=== PATIENT | female | born 1935 | race African-American/Black ===

== ENCOUNTER → 2018-02-05 12:36 | Outpatient (CLI) | payer MEDICARE, OTHER, SELFPAY ==
--- NOTE | 2018-02-05 | DI.US.S_ITS ---
PROCEDURE: US CAROTID DOPPLER BI INDICATIONS: DISORDER OF ARTERIES TECHNIQUE: Color and pulse Doppler interrogation was performed of both carotid systems, with image documentation and velocity measurements. COMPARISON: None. FINDINGS: Stenosis calculations are based on SRU (S[employer] in Ul[employer]) criteria. Right side: Brachial blood pressure: 157/82 mm Hg. Common carotid artery peak systolic velocity: 72 cm/sec. Internal carotid artery peak systolic velocity: 80 cm/sec. Internal carotid artery end diastolic velocity: 20 cm/sec. External carotid artery peak systolic velocity: 80 cm/sec. ICA/CCA peak systolic ratio: 1.11. Pike scale imaging description: Mild plaquing at the bifurcation Percent internal carotid artery stenosis: Less than 50%. Vertebral artery: Not visualized. Left side: Brachial blood pressure: 158/80 mm Hg. Common carotid artery peak systolic velocity: 75 cm/sec. Internal carotid artery peak systolic velocity: 80 cm/sec. Internal carotid artery end diastolic velocity: 20 cm/sec. External carotid artery peak systolic velocity: 57 cm/sec. ICA/CCA peak systolic ratio: 1.06. Pike scale imaging description: Calcified plaques at the bifurcation Percent internal carotid artery stenosis: Less than 50%. Vertebral artery: Flow direction is antegrade. IMPRESSION: Less than 50% internal carotid artery stenosis bilaterally. Dictated by: Osmar Hylton M.D. on 02/05/2018 at 16:02 Approved by: Osmar Hylton M.D. on 02/05/2018 at 16:09
== END ==
PROVIDERS: Family Provider Internal Medicine; PCP Internal Medicine; Visit Provider Internal Medicine Cardiovascular Disease
DX: I77.9 Disorder of arteries and arterioles, unspecified (principal)
CPT/HCPCS: 93880

== ENCOUNTER 2018-07-12 11:30 | Inpatient (IN) | payer MEDICARE, OTHER, SELFPAY ==
[2018-07-12] VITALS (13 sets, daily range): BP systolic 112–164; BP diastolic 59–97; PULSE 60–108; RESP 14–23; TEMP 36.9–38.2; O2SAT 97–100; BMI 25.6
--- NOTE | 2018-07-12 11:40 | DI.CT.S_ITS ---
PROCEDURE: CT HEAD/BRAIN WO CON INDICATIONS: confusion TECHNIQUE: Noncontrast 4.5 mm thick angled axial sections acquired from the foramen magnum to the vertex, with coronal and sagittal reformats. For radiation dose reduction, the following was used: automated exposure control, adjustment of mA and/or kV according to patient size. COMPARISON: None. FINDINGS: Image quality: Excellent. CSF spaces: Basal cisterns are patent. No extra-axial fluid collections. The ventricles are symmetric in size and shape. Brain: No intracranial bleeds or masses. There is cerebral volume loss for age, with resultant ventricular and sulcal prominence. There are periventricular and deep white matter chronic small vessel ischemic changes. There is intracranial internal carotid artery atherosclerosis. Caval septum variant incidentally noted. Skull and face: Calvarium and visualized facial bones appear intact, without suspicious lesions. Sinuses: Visualized sinuses and mastoids are clear. IMPRESSION: No acute intracranial process Dictated by: Malachi David M.D. on 07/12/2018 at 13:04 Approved by: Malachi David M.D. on 07/12/2018 at 13:08
--- NOTE | 2018-07-12 11:41 | DI.RAD.S_ITS ---
PROCEDURE: XR CHEST 1V INDICATIONS: chest pain TECHNIQUE: One view of the chest was acquired. COMPARISON: None. FINDINGS: Surgical changes and devices: None. Lungs and pleura: No pleural effusions or pneumothorax. Lungs are clear. Mediastinum: Mediastinal contours appear normal. Heart size is normal. Bones and chest wall: No suspicious bony lesions. Overlying soft tissues appear unremarkable. Lateral curvature of the spine IMPRESSION: No acute disease Dictated by: Malachi David M.D. on 07/12/2018 at 12:20 Approved by: Malachi David M.D. on 07/12/2018 at 12:21
[2018-07-12 11:58] LABS: Appearance Urine UA CLOUDY; Bilirubin Urine UA 1+ (NEGATIVE); Color Urine UA YELLOW; Glucose Urine UA NEGATIVE (Normal); Ketones Urine UA TRACE (NEGATIVE); Leukocyte Esterase Urine UA 2+ (NEGATIVE); Nitrite Urine UA NEGATIVE (Negative); Occult Blood Urine UA 2+ (Negative); Protein Urine UA 2+ (Negative)
[2018-07-12 12:16] LABS: Bacteria Urine Many (>30); Hyaline Casts Urine 1-5/LPF; Ictotest Urine Negative (Negative); RBC Urine 0-1/HPF (0-5/HPF); Squamous Epithelial Cell Urine 10-30 /HPF; WBC Urine 30-100/HPF (0-5/HPF)
[2018-07-12 12:17] LABS: Culture Indicated Urine Cult Not Indicated
[2018-07-12 12:59] LABS: Hematocrit 32.7 % (36-46); Hemoglobin 10.4 g/dL (12.0-16.0); Mean Corpuscular HGB Conc 31.9 % (30-36); Mean Corpuscular Volume 65.6 fL (80-100); Platelet Count 139 X10^3/uL (150-400); Red Blood Cell Count 4.98 X10^6/uL (4.0-5.2); Red Cell Distribution Width 15.6 % (11.6-14.8); White Blood Cell Count 7.2 X10^3/uL (4.5-11.0)
[2018-07-12 13:02] LABS: INR 1.3 (0.9-1.3); Prothrombin Time 14.2 SECONDS (10.1-12.7)
[2018-07-12 13:03] LABS: Add Manual Diff / Slide Review YES
[2018-07-12 13:05] LABS: PTT Partial Thromboplastin Tim 23 SECONDS (26.4-36.2)
[2018-07-12 13:08] LABS: Alanine Aminotransferase 28 IU/L (9-52); Albumin 4.5 g/dL (3.5-5.0); Albumin Globulin Ratio 1.2 (1.0-2.8); Alkaline Phosphatase 64 U/L (38-126); Aspartate Aminotransferase 32 IU/L (14-36); BUN Creatinine Ratio 17.7 (6-22); Bilirubin Total 1.4 mg/dL (0.2-1.3); Blood Urea Nitrogen 23 mg/dL (7-17); Calcium 9.3 mg/dL (8.4-10.2); Carbon Dioxide 25 mmol/L (22-32); Chloride 99 mmol/L (98-107); Creatine Kinase 72 U/L (30-135); Estimated Glomerular Filt Rate 39.2 mL/min (>60); Globulin 3.8 g/dL (1.7-4.1); Glucose 110 mg/dL (80-110); HEMOLYSIS < 15 (0-50); Lipase 119 U/L (23-300); Potassium 3.3 mmol/L (3.4-5.1); Sodium 140 mmol/L (137-145); Total Protein 8.3 g/dL (6.3-8.2)
[2018-07-12 13:18] LABS: Troponin I 0.018 ng/mL (0.01-0.034)
[2018-07-12 13:25] LABS: Neutrophils Absolute Manual 5256 /uL (3000-5900); Total Cells Counted 100
[2018-07-12 13:27] LABS: Anisocytosis 1+; Hypochromasia 2+; Microcytosis 2+
--- NOTE | 2018-07-12 14:05 | ED.NEUROSD ---
HPI - Neuro Symptoms/Deficit <Jolie Robles WAREHOUSE ORDER FILLER-BC - Last Filed: 07/12/18 19:08> General Chief Complaint: Neuro Symptoms/Deficit Stated Complaint: Cant move Time Seen by Provider: 07/12/18 12:35 Source: patient and family Mode of arrival: ambulatory Limitations: no limitations History of Present Illness HPI Narrative: Patient is an 82-year-old female with history of diabetes and hypertension who presents with feeling confused for the past 3 days. Patient's family states she has been increasingly weak, and fell yesterday. She denies any fevers, dysuria, urgency, frequency, chest pain, shortness of breath or abdominal pain. She denies any nausea, vomiting, diarrhea. Patient's family is concerned as patient has been mostly staying in bed the past several days, has been just laying there and not moving. Related Data Home Medications Medication Instructions Recorded Confirmed hydrochlorothiazide 25 mg PO SEE INSTRUCTIONS #0 04/25/16 07/12/18 levothyroxine [Synthroid] 75 mcg PO QDAY #0 04/25/16 07/12/18 losartan [Cozaar] 50 mg PO SEE INSTRUCTIONS #0 04/25/16 07/12/18 metoprolol tartrate [Lopressor] 50 mg PO BID #0 04/25/16 07/12/18 montelukast [Singulair] 4 mg PO SEE INSTRUCTIONS #0 04/25/16 07/12/18 multivitamin [Multiple Vitamins] See Label Instructions .ROUTE 04/25/16 07/12/18 .COMPLEX #0 ranitidine HCl [Zantac] 150 mg PO BID #0 04/25/16 07/12/18 sitagliptin [Januvia] 50 mg PO Q DAY #0 04/25/16 07/12/18 aspirin [Aspirin Childrens] 81 mg PO DAILY 07/12/18 07/12/18 lancets-blood glucose strips 07/12/18 07/12/18 rosuvastatin [Crestor] 5 mg PO DAILY 07/12/18 07/12/18 Allergies Allergy/AdvReac Type Severity Reaction Status Date / Time meperidine [From DEMEROL] Allergy Unknown Verified 07/12/18 11:35 tetracycline [TETRACYCLINE] Allergy Unknown Verified 07/12/18 11:35 Penicillins Allergy Verified 07/12/18 11:35 Review of Systems <Jolie RoblesDIVYA-BC - Last Filed: 07/12/18 19:08> Review of Systems GENERAL: see HPI HEENT: Denies sinus pain, ear pain, sore throat, difficulty swallowing, dizziness. RESPIRATORY: Denies dyspnea, cough, wheezing, hemoptysis, sputum. CARDIOVASCULAR: Denies chest pain, palpitations, orthopnea, edema, GASTROINTESTINAL: Denies nausea, vomiting, abdominal pain, diarrhea, constipation, melena. : Denies dysuria, frequency, incontinence, hematuria, urinary retention. MUSCULOSKELETAL: denies weakness, joint pain, or bony pain SKIN: Denies rash, skin lesions, or other NEUROLOGIC: see HPI PSYCHIATRIC: No concerning psychosocial issues. 12 point review of systems is negative except for those stated above Exam <Jolie Robles WAREHOUSE ORDER FILLER- - Last Filed: 07/12/18 19:08> Narrative Exam Narrative: GENERAL: This is a well-nourished, well-developed patient, lying on stretcher with family at her bedside HEAD: Atraumatic. Normocephalic. No temporal or scalp tenderness. EYES: Pupils equal round and reactive. Extraocular motions intact. No scleral icterus. No injection or drainage. no nystagmus noted ENT: Nose without bleeding, purulent drainage or septal hematoma. Throat without erythema, tonsillar hypertrophy or exudate. Uvula midline. Airway patent. NECK: Trachea midline. No JVD or lymphadenopathy. Supple, nontender, no meningeal signs. CARDIOVASCULAR: Regular rate and rhythm without murmurs, gallops, or rubs. RESPIRATORY: Clear to auscultation. Breath sounds equal bilaterally. No wheezes, rales, or rhonchi. no cough on exam. No increased respiratory effort. No accessory muscle use. GASTROINTESTINAL: Abdomen soft, non-tender, nondistended. No hepato-splenomegaly, or palpable masses. No guarding. Generalized suprapubic pain to palpation, but no guarding. No palpable Pulsatile mass. EXTREMITIES: No clubbing, cyanosis, or edema. No joint tenderness, effusion, or edema noted. strength is equal upper and lower extremities bilaterally. BACK: Nontender without deformity or crepitance. No flank tenderness. NEURO: AOx3. No slurred speech. Cranial nerves grossly intact. Strength is equal upper and lower extremities bilaterally. Intact Radial and Achilles reflexes. SKIN: No rash or erythema. Initial Vital Signs Initial Vital Signs: Vital Signs Temperature 99.5 F 07/12/18 11:35 Pulse Rate 88 07/12/18 11:35 Respiratory Rate 18 07/12/18 11:35 Blood Pressure 150/78 H 07/12/18 11:35 Pulse Oximetry 99 07/12/18 11:35 <Jolie Robles DO - Last Filed: 07/12/18 19:44> Initial Vital Signs Initial Vital Signs: Vital Signs Temperature 99.5 F 07/12/18 11:35 Pulse Rate 88 07/12/18 11:35 Respiratory Rate 18 07/12/18 11:35 Blood Pressure 150/78 H 07/12/18 11:35 Pulse Oximetry 99 07/12/18 11:35 Course <DIVYA Capellan-BC - Last Filed: 07/12/18 19:08> Course Narrative: I checked on the patient and her family several times throughout her stay. Decision to Admit Date: 07/12/18 Decision to Admit time: 14:45 Additional Information: given the patient's UTI, tachycardia and slight fever combined with her weakness and general confusion at home, I am uncomfortable discharging her home. I contacted Dr. leon who kindly agree to admit the patient. Orders Ordered: ED Orders 07/12/18 11:40 CT head/brain wo con Stat 07/12/18 11:41 XR chest 1V Stat 07/12/18 11:49 EKG-12 Lead Stat 07/12/18 11:50 Ictotest Urine Stat Urinalysis and Microscopic Stat 07/12/18 12:10 Complete Blood Count AUTO DIFF Stat Comprehensive Metabolic Panel Stat Lipase Stat Partial Thromboplastin Time Stat Prothrombin Time INR Stat Troponin & CK Cardiac Panel Stat 07/12/18 16:31 Consult to Discharge Planning Routine Consult to Physical Therapy Evaluate & Treat Education, smoking cessation ONGOING 07/12/18 18:20 Basic Metabolic Panel Routine 07/13/18 05:00 Complete Blood Count AUTO DIFF Routine Acetaminophen (Tylenol) 650 mg PO Q6HR PRN PRN Reason: As Needed for Fever/Mild Pain Last Admin: 07/12/18 19:07 Dose: 650 mg Hydrocodone Bitart/Acetaminophen ([place] 5/325) 1 tab PO Q4HR PRN PRN Reason: Pain, Moderate (4-6) Al Hydrox/Mg Hydrox/Simethicone (Maalox Plus) 30 ml PO Q6HR PRN PRN Reason: Dyspepsia Aspirin (Aspirin Chew) 81 mg PO DAILY [facility] Enoxaparin Sodium (Lovenox) 30 mg SUBCUT DAILY [facility] Hydrochlorothiazide (Hydrochlorothiazide) 25 mg PO SEE INSTRUCTIONS [facility] Ceftriaxone Sodium/Dextrose (Rocephin) 1 gm in 50 mls @ 100 mls/hr IV Q24H [facility] Sodium Chloride (Normal Saline 0.45%) 1,000 mls @ 100 mls/hr IV CONT [facility] Last Admin: 07/12/18 17:35 Dose: 100 mls/hr Levothyroxine Sodium (Synthroid) 75 mcg PO 0600 [facility] Losartan Potassium (Cozaar) 50 mg PO SEE INSTRUCTIONS [facility] Metoprolol Tartrate (Lopressor) 50 mg PO BID [facility] Naloxone HCl (Narcan) 0.2 mg IV Q2MIN PRN PRN Reason: Opiate Reversal Non-Formulary Medication (Montelukast [Singulair]) 4 mg PO SEE INSTRUCTIONS [facility] Ondansetron HCl (Zofran) 4 mg IV Q8HR PRN PRN Reason: Nausea And Vomiting Ranitidine HCl (Zantac) 150 mg PO BID [facility] Rosuvastatin Calcium (Crestor) 5 mg PO DAILY [facility] Sennosides (Senna) 17.2 mg PO BEDTIME [facility] Sitagliptin Phosphate (Januvia) 50 mg PO DAILY [facility] Discontinued Medications Sodium Chloride (Normal Saline 0.9%) 1,000 mls @ 500 mls/hr IV BOLUS ONE Stop: 07/12/18 16:05 Last Infusion: 07/12/18 16:01 Dose: 0 mls/hr Admin: 07/12/18 14:17 Dose: 500 mls/hr Levofloxacin (Levaquin) 750 mg in 150 mls @ 100 mls/hr IV NOW ONE Stop: 07/12/18 16:46 Last Infusion: 07/12/18 16:01 Dose: 100 mls/hr Admin: 07/12/18 15:26 Dose: 100 mls/hr Potassium Chloride (Klor-Con M20) 40 meq PO NOW ONE Stop: 07/12/18 14:13 Last Admin: 07/12/18 14:17 Dose: 40 meq Vital Signs - 8 hr 07/12/18 12:15 07/12/18 13:00 07/12/18 13:30 Temperature Pulse Rate 81 82 89 Pulse Rate [Orthostatic Lying] Pulse Rate [Orthostatic Sitting] Pulse Rate [Orthostatic Standing] Respiratory Rate 14 15 23 Blood Pressure Blood Pressure [Left Arm] 153/75 H 147/59 H 144/74 H Blood Pressure [Orthostatic Lying] Blood Pressure [Orthostatic Sitting] Blood Pressure [Orthostatic Standing] Pulse Oximetry 100 99 97 07/12/18 14:00 07/12/18 14:17 07/12/18 14:30 Temperature Pulse Rate 82 69 Pulse Rate [Orthostatic Lying] 82 Pulse Rate [Orthostatic Sitting] 108 H Pulse Rate [Orthostatic Standing] 98 H Respiratory Rate 15 18 Blood Pressure Blood Pressure [Left Arm] 133/62 164/73 H Blood Pressure [Orthostatic Lying] 132/62 Blood Pressure [Orthostatic Sitting] 112/97 H Blood Pressure [Orthostatic Standing] 117/60 Pulse Oximetry 100 98 07/12/18 15:09 07/12/18 16:25 07/12/18 19:26 Temperature 100.7 F H 98.5 F 100.5 F H Pulse Rate 79 76 77 Pulse Rate [Orthostatic Lying] Pulse Rate [Orthostatic Sitting] Pulse Rate [Orthostatic Standing] Respiratory Rate 16 17 18 Blood Pressure 155/76 H 159/75 H Blood Pressure [Left Arm] 146/73 H Blood Pressure [Orthostatic Lying] Blood Pressure [Orthostatic Sitting] Blood Pressure [Orthostatic Standing] Pulse Oximetry 99 98 100 <Jolie Robles, DO - Last Filed: 07/12/18 19:44> Orders Ordered: ED Orders 07/12/18 11:40 CT head/brain wo con Stat 07/12/18 11:41 XR chest 1V Stat 07/12/18 11:49 EKG-12 Lead Stat 07/12/18 11:50 Ictotest Urine Stat Urinalysis and Microscopic Stat 07/12/18 12:10 Complete Blood Count AUTO DIFF Stat Comprehensive Metabolic Panel Stat Lipase Stat Partial Thromboplastin Time Stat Prothrombin Time INR Stat Troponin & CK Cardiac Panel Stat 07/12/18 16:31 Consult to Discharge Planning Routine Consult to Physical Therapy Evaluate & Treat Education, smoking cessation ONGOING 07/12/18 18:20 Basic Metabolic Panel Routine 07/13/18 05:00 Complete Blood Count AUTO DIFF Routine Acetaminophen (Tylenol) 650 mg PO Q6HR PRN PRN Reason: As Needed for Fever/Mild Pain Last Admin: 07/12/18 19:07 Dose: 650 mg Hydrocodone Bitart/Acetaminophen ([place] 5/325) 1 tab PO Q4HR PRN PRN Reason: Pain, Moderate (4-6) Al Hydrox/Mg Hydrox/Simethicone (Maalox Plus) 30 ml PO Q6HR PRN PRN Reason: Dyspepsia Aspirin (Aspirin Chew) 81 mg PO DAILY [facility] Enoxaparin Sodium (Lovenox) 30 mg SUBCUT DAILY [facility] Hydrochlorothiazide (Hydrochlorothiazide) 25 mg PO SEE INSTRUCTIONS [facility] Ceftriaxone Sodium/Dextrose (Rocephin) 1 gm in 50 mls @ 100 mls/hr IV Q24H [facility] Sodium Chloride (Normal Saline 0.45%) 1,000 mls @ 100 mls/hr IV CONT [facility] Last Admin: 07/12/18 17:35 Dose: 100 mls/hr Levothyroxine Sodium (Synthroid) 75 mcg PO 0600 [facility] Losartan Potassium (Cozaar) 50 mg PO SEE INSTRUCTIONS [facility] Metoprolol Tartrate (Lopressor) 50 mg PO BID [facility] Naloxone HCl (Narcan) 0.2 mg IV Q2MIN PRN PRN Reason: Opiate Reversal Non-Formulary Medication (Montelukast [Singulair]) 4 mg PO SEE INSTRUCTIONS [facility] Ondansetron HCl (Zofran) 4 mg IV Q8HR PRN PRN Reason: Nausea And Vomiting Ranitidine HCl (Zantac) 150 mg PO BID [facility] Rosuvastatin Calcium (Crestor) 5 mg PO DAILY [facility] Sennosides (Senna) 17.2 mg PO BEDTIME [facility] Sitagliptin Phosphate (Januvia) 50 mg PO DAILY [facility] Discontinued Medications Sodium Chloride (Normal Saline 0.9%) 1,000 mls @ 500 mls/hr IV BOLUS ONE Stop: 07/12/18 16:05 Last Infusion: 07/12/18 16:01 Dose: 0 mls/hr Admin: 07/12/18 14:17 Dose: 500 mls/hr Levofloxacin (Levaquin) 750 mg in 150 mls @ 100 mls/hr IV NOW ONE Stop: 07/12/18 16:46 Last Infusion: 07/12/18 16:01 Dose: 100 mls/hr Admin: 07/12/18 15:26 Dose: 100 mls/hr Potassium Chloride (Klor-Con M20) 40 meq PO NOW ONE Stop: 07/12/18 14:13 Last Admin: 07/12/18 14:17 Dose: 40 meq Vital Signs - 8 hr 07/12/18 12:15 07/12/18 13:00 07/12/18 13:30 Temperature Pulse Rate 81 82 89 Pulse Rate [Orthostatic Lying] Pulse Rate [Orthostatic Sitting] Pulse Rate [Orthostatic Standing] Respiratory Rate 14 15 23 Blood Pressure Blood Pressure [Left Arm] 153/75 H 147/59 H 144/74 H Blood Pressure [Orthostatic Lying] Blood Pressure [Orthostatic Sitting] Blood Pressure [Orthostatic Standing] Pulse Oximetry 100 99 97 07/12/18 14:00 07/12/18 14:17 07/12/18 14:30 Temperature Pulse Rate 82 69 Pulse Rate [Orthostatic Lying] 82 Pulse Rate [Orthostatic Sitting] 108 H Pulse Rate [Orthostatic Standing] 98 H Respiratory Rate 15 18 Blood Pressure Blood Pressure [Left Arm] 133/62 164/73 H Blood Pressure [Orthostatic Lying] 132/62 Blood Pressure [Orthostatic Sitting] 112/97 H Blood Pressure [Orthostatic Standing] 117/60 Pulse Oximetry 100 98 07/12/18 15:09 07/12/18 16:25 07/12/18 19:26 Temperature 100.7 F H 98.5 F 100.5 F H Pulse Rate 79 76 77 Pulse Rate [Orthostatic Lying] Pulse Rate [Orthostatic Sitting] Pulse Rate [Orthostatic Standing] Respiratory Rate 16 17 18 Blood Pressure 155/76 H 159/75 H Blood Pressure [Left Arm] 146/73 H Blood Pressure [Orthostatic Lying] Blood Pressure [Orthostatic Sitting] Blood Pressure [Orthostatic Standing] Pulse Oximetry 99 98 100 MDM - Neuro Symptoms/Deficit <DIVYA Capellan- - Last Filed: 07/12/18 19:08> Lab Data Result diagrams: 07/12/18 12:10 07/12/18 18:20 Lab Results 07/12/18 07/12/18 07/12/18 Range/Units 11:50 12:10 12:10 WBC 7.2 (4.5-11.0) X10^3/uL RBC 4.98 (4.0-5.2) X10^6/uL Hgb 10.4 L (12.0-16.0) g/dL Hct 32.7 L (36-46) % MCV 65.6 L (80-100) fL MCH 21.0 L (26-34) PG MCHC 31.9 (30-36) % RDW 15.6 H (11.6-14.8) % Plt Count 139 L (150-400) X10^3/uL Neut % (Auto) Not Reportable Lymph % (Auto) Not Reportable [place] % (Auto) Not Reportable Eos % (Auto) Not Reportable Baso % (Auto) Not Reportable Total Counted 100 Seg Neutrophils % 71.0 H (38-70) % Band Neutrophils % 2.0 L (3-7) % Lymphocytes % (Manual) 8.0 L (25-45) % Monocytes % (Manual) 19.0 H (2-11) % Neutrophils # (Manual) [phone] ([phone]) /uL Plt Morphology Comment Quality Compliance Manager RBC Morphology See below Hypochromasia 2+ H Anisocytosis 1+ H Microcytosis 2+ H PT 14.2 H (10.1-12.7) SECONDS INR 1.3 (0.9-1.3) APTT 23 L (26.4-36.2) SECONDS Sodium (137-145) mmol/L Potassium (3.4-5.1) mmol/L Chloride (98-107) mmol/L Carbon Dioxide (22-32) mmol/L BUN (7-17) mg/dL Creatinine (0.52-1.04) mg/dL Estimated GFR (>60) mL/min BUN/Creatinine Ratio (6-22) Glucose (80-110) mg/dL Calcium (8.4-10.2) mg/dL Total Bilirubin (0.2-1.3) mg/dL AST (14-36) IU/L ALT (9-52) IU/L Alkaline Phosphatase (38-126) U/L Total Creatine Kinase (30-135) U/L CK-MB (CK-2) CK-MB (CK-2) Rel Index Troponin I (0.01-0.034) ng/mL Total Protein (6.3-8.2) g/dL Albumin (3.5-5.0) g/dL Globulin (1.7-4.1) g/dL Albumin/Globulin Ratio (1.0-2.8) Lipase (23-300) U/L Urine Color Yellow Urine Appearance Cloudy Urine pH 6.0 (4.5-8.0) Ur Specific [place] 1.020 (1.000-1.035) Urine Protein 2+ H (Negative) Urine Glucose (UA) Negative (Normal) g/dL Urine Ketones Trace H (NEGATIVE) Urine Occult Blood 2+ H (Negative) Urine Nitrate Negative (Negative) Urine Bilirubin 1+ H (NEGATIVE) Urine Ictotest Negative (Negative) Urine Urobilinogen 1.0 (0.2) E.U./dL Ur Leukocyte Esterase 2+ H (NEGATIVE) Urine RBC 0-1/hpf (0-5/HPF) Urine WBC 30-100/hpf H (0-5/HPF) Ur Squamous Epith Cells 10-30 /hpf H Urine Bacteria Many (>30) H (None) Hyaline Casts 1-5/lpf (None) Ur Culture Indicated? Cult not indicated Micro UA Comment Not Reportable 07/12/18 07/12/18 Range/Units 12:10 18:20 WBC (4.5-11.0) X10^3/uL RBC (4.0-5.2) X10^6/uL Hgb (12.0-16.0) g/dL Hct (36-46) % MCV (80-100) fL MCH (26-34) PG MCHC (30-36) % RDW (11.6-14.8) % Plt Count (150-400) X10^3/uL Neut % (Auto) Lymph % (Auto) [place] % (Auto) Eos % (Auto) Baso % (Auto) Total Counted Seg Neutrophils % (38-70) % Band Neutrophils % (3-7) % Lymphocytes % (Manual) (25-45) % Monocytes % (Manual) (2-11) % Neutrophils # (Manual) ([phone]) /uL Plt Morphology Comment RBC Morphology Hypochromasia Anisocytosis Microcytosis PT (10.1-12.7) SECONDS INR (0.9-1.3) APTT (26.4-36.2) SECONDS Sodium 140 139 (137-145) mmol/L Potassium 3.3 L 3.8 (3.4-5.1) mmol/L Chloride 99 100 (98-107) mmol/L Carbon Dioxide 25 27 (22-32) mmol/L BUN 23 H 22 H (7-17) mg/dL Creatinine 1.30 H 1.20 H (0.52-1.04) mg/dL Estimated GFR 39.2 L 43.0 L (>60) mL/min BUN/Creatinine Ratio 17.7 18.3 (6-22) Glucose 110 118 H (80-110) mg/dL Calcium 9.3 8.7 (8.4-10.2) mg/dL Total Bilirubin 1.4 H (0.2-1.3) mg/dL AST 32 (14-36) IU/L ALT 28 (9-52) IU/L Alkaline Phosphatase 64 (38-126) U/L Total Creatine Kinase 72 (30-135) U/L CK-MB (CK-2) TNP CK-MB (CK-2) Rel Index TNP Troponin I 0.018 (0.01-0.034) ng/mL Total Protein 8.3 H (6.3-8.2) g/dL Albumin 4.5 (3.5-5.0) g/dL Globulin 3.8 (1.7-4.1) g/dL Albumin/Globulin Ratio 1.2 (1.0-2.8) Lipase 119 (23-300) U/L Urine Color Urine Appearance Urine pH (4.5-8.0) Ur Specific [place] (1.000-1.035) Urine Protein (Negative) Urine Glucose (UA) (Normal) g/dL Urine Ketones (NEGATIVE) Urine Occult Blood (Negative) Urine Nitrate (Negative) Urine Bilirubin (NEGATIVE) Urine Ictotest (Negative) Urine Urobilinogen (0.2) E.U./dL Ur Leukocyte Esterase (NEGATIVE) Urine RBC (0-5/HPF) Urine WBC (0-5/HPF) Ur Squamous Epith Cells Urine Bacteria (None) Hyaline Casts (None) Ur Culture Indicated? Micro UA Comment Point of Care Testing Glucose POC [address] scan - head: Radiologist's impression: [address] [address] [address] Scan Report Signed Patient: So Stinson [facility]#: [id number] : 5Acct:[id number] Age/Sex: 82 / FDate of Service: 07/12/18 Loc: ED Accession Number: [id number] Procedure: CT head/brain wo con Ordering Provider: Jolie Robles D.O. PROCEDURE: CT HEAD/BRAIN WO CON INDICATIONS: confusion TECHNIQUE: Noncontrast 4.5 mm thick angled axial sections acquired from the foramen magnum to the vertex, with coronal and sagittal reformats. For radiation dose reduction, the following was used: automated exposure control, adjustment of mA and/or kV according to patient size. COMPARISON: None. FINDINGS: Image quality: Excellent. CSF spaces: Basal cisterns are patent. No extra-axial fluid collections. The ventricles are symmetric in size and shape. Brain: No intracranial bleeds or masses. There is cerebral volume loss for age, with resultant ventricular and sulcal prominence. There are periventricular and deep white matter chronic small vessel ischemic changes. There is intracranial internal carotid artery atherosclerosis. Caval septum variant incidentally noted. Skull and face: Calvarium and visualized facial bones appear intact, without suspicious lesions. Sinuses: Visualized sinuses and mastoids are clear. IMPRESSION: No acute intracranial process Dictated by: Malachi David M.D. on 07/12/2018 at 13:04 Approved by: Malachi David M.D. on 07/12/2018 at 13:08 Chest x-ray: Radiologist's impression: [place] [address] XRay Report Signed Patient: So Stinson [facility]#: [id number] : 5Acct:[id number] Age/Sex: 82 / FDate of Service: 07/12/18 Loc: ED Accession Number: [id number] Procedure: XR chest 1V Ordering Provider: Jolie Robles D.O. PROCEDURE: XR CHEST 1V INDICATIONS: chest pain TECHNIQUE: One view of the chest was acquired. COMPARISON: None. FINDINGS: Surgical changes and devices: None. Lungs and pleura: No pleural effusions or pneumothorax. Lungs are clear. Mediastinum: Mediastinal contours appear normal. Heart size is normal. Bones and chest wall: No suspicious bony lesions. Overlying soft tissues appear unremarkable. Lateral curvature of the spine IMPRESSION: No acute disease Dictated by: Malachi David M.D. on 07/12/2018 at 12:20 Approved by: Malacih David M.D. on 07/12/2018 at 12:21 ECG Data Attestation: I personally reviewed and interpreted this ECG as follows: Interpretation: sinus rhythm. Ventricular rate 90. PVCs noted. No ST elevation or depression. MDM Narrative Medical decision making narrative: The patient presented with chief complaint of confusion, and weakness. She had a thorough evaluation including CBC, CMP troponin cardiac enzymes as well as a head CT, EKG and chest x-ray. She was found have a urinary tract infection. She is also found to be slightly hypokalemic which was replaced in the emergency department. Given her UTI, as well as being tachycardic and febrile, I contacted the hospitalist who kindly agreed to admit the patient. She was treated for her urinary tract infection with Levaquin in the emergency department. I discussed at length admission with the patient and her family, who were agreeable and appreciative. <Jolie Robles, DO - Last Filed: 07/12/18 19:44> Lab Data Lab Results 07/12/18 07/12/18 07/12/18 Range/Units 11:50 12:10 12:10 WBC 7.2 (4.5-11.0) X10^3/uL RBC 4.98 (4.0-5.2) X10^6/uL Hgb 10.4 L (12.0-16.0) g/dL Hct 32.7 L (36-46) % MCV 65.6 L (80-100) fL MCH 21.0 L (26-34) PG MCHC 31.9 (30-36) % RDW 15.6 H (11.6-14.8) % Plt Count 139 L (150-400) X10^3/uL Neut % (Auto) Not Reportable Lymph % (Auto) Not Reportable [place] % (Auto) Not Reportable Eos % (Auto) Not Reportable Baso % (Auto) Not Reportable Total Counted 100 Seg Neutrophils % 71.0 H (38-70) % Band Neutrophils % 2.0 L (3-7) % Lymphocytes % (Manual) 8.0 L (25-45) % Monocytes % (Manual) 19.0 H (2-11) % Neutrophils # (Manual) [phone] ([phone]) /uL Plt Morphology Comment Quality Compliance Manager RBC Morphology See below Hypochromasia 2+ H Anisocytosis 1+ H Microcytosis 2+ H PT 14.2 H (10.1-12.7) SECONDS INR 1.3 (0.9-1.3) APTT 23 L (26.4-36.2) SECONDS Sodium (137-145) mmol/L Potassium (3.4-5.1) mmol/L Chloride (98-107) mmol/L Carbon Dioxide (22-32) mmol/L BUN (7-17) mg/dL Creatinine (0.52-1.04) mg/dL Estimated GFR (>60) mL/min BUN/Creatinine Ratio (6-22) Glucose (80-110) mg/dL Calcium (8.4-10.2) mg/dL Total Bilirubin (0.2-1.3) mg/dL AST (14-36) IU/L ALT (9-52) IU/L Alkaline Phosphatase (38-126) U/L Total Creatine Kinase (30-135) U/L CK-MB (CK-2) CK-MB (CK-2) Rel Index Troponin I (0.01-0.034) ng/mL Total Protein (6.3-8.2) g/dL Albumin (3.5-5.0) g/dL Globulin (1.7-4.1) g/dL Albumin/Globulin Ratio (1.0-2.8) Lipase (23-300) U/L Urine Color Yellow Urine Appearance Cloudy Urine pH 6.0 (4.5-8.0) Ur Specific [place] 1.020 (1.000-1.035) Urine Protein 2+ H (Negative) Urine Glucose (UA) Negative (Normal) g/dL Urine Ketones Trace H (NEGATIVE) Urine Occult Blood 2+ H (Negative) Urine Nitrate Negative (Negative) Urine Bilirubin 1+ H (NEGATIVE) Urine Ictotest Negative (Negative) Urine Urobilinogen 1.0 (0.2) E.U./dL Ur Leukocyte Esterase 2+ H (NEGATIVE) Urine RBC 0-1/hpf (0-5/HPF) Urine WBC 30-100/hpf H (0-5/HPF) Ur Squamous Epith Cells 10-30 /hpf H Urine Bacteria Many (>30) H (None) Hyaline Casts 1-5/lpf (None) Ur Culture Indicated? Cult not indicated Micro UA Comment Not Reportable 07/12/18 07/12/18 Range/Units 12:10 18:20 WBC (4.5-11.0) X10^3/uL RBC (4.0-5.2) X10^6/uL Hgb (12.0-16.0) g/dL Hct (36-46) % MCV (80-100) fL MCH (26-34) PG MCHC (30-36) % RDW (11.6-14.8) % Plt Count (150-400) X10^3/uL Neut % (Auto) Lymph % (Auto) [place] % (Auto) Eos % (Auto) Baso % (Auto) Total Counted Seg Neutrophils % (38-70) % Band Neutrophils % (3-7) % Lymphocytes % (Manual) (25-45) % Monocytes % (Manual) (2-11) % Neutrophils # (Manual) ([id number]) /uL Plt Morphology Comment RBC Morphology Hypochromasia Anisocytosis Microcytosis PT (10.1-12.7) SECONDS INR (0.9-1.3) APTT (26.4-36.2) SECONDS Sodium 140 139 (137-145) mmol/L Potassium 3.3 L 3.8 (3.4-5.1) mmol/L Chloride 99 100 (98-107) mmol/L Carbon Dioxide 25 27 (22-32) mmol/L BUN 23 H 22 H (7-17) mg/dL Creatinine 1.30 H 1.20 H (0.52-1.04) mg/dL Estimated GFR 39.2 L 43.0 L (>60) mL/min BUN/Creatinine Ratio 17.7 18.3 (6-22) Glucose 110 118 H (80-110) mg/dL Calcium 9.3 8.7 (8.4-10.2) mg/dL Total Bilirubin 1.4 H (0.2-1.3) mg/dL AST 32 (14-36) IU/L ALT 28 (9-52) IU/L Alkaline Phosphatase 64 (38-126) U/L Total Creatine Kinase 72 (30-135) U/L CK-MB (CK-2) TNP CK-MB (CK-2) Rel Index TNP Troponin I 0.018 (0.01-0.034) ng/mL Total Protein 8.3 H (6.3-8.2) g/dL Albumin 4.5 (3.5-5.0) g/dL Globulin 3.8 (1.7-4.1) g/dL Albumin/Globulin Ratio 1.2 (1.0-2.8) Lipase 119 (23-300) U/L Urine Color Urine Appearance Urine pH (4.5-8.0) Ur Specific Olmitz (1.000-1.035) Urine Protein (Negative) Urine Glucose (UA) (Normal) g/dL Urine Ketones (NEGATIVE) Urine Occult Blood (Negative) Urine Nitrate (Negative) Urine Bilirubin (NEGATIVE) Urine Ictotest (Negative) Urine Urobilinogen (0.2) E.U./dL Ur Leukocyte Esterase (NEGATIVE) Urine RBC (0-5/HPF) Urine WBC (0-5/HPF) Ur Squamous Epith Cells Urine Bacteria (None) Hyaline Casts (None) Ur Culture Indicated? Micro UA Comment Point of Care Testing Glucose POC 103 Discharge Plan Departure Patient Disposition: Admitted As Inpatient Clinical Impression: Acute UTI Discharge Date/Time: 07/12/18 16:11 Interventions: ED Discharge Assessment Last Done: 07/12/18 15:54 Admit Date/Time: 07/12/18 15:26 Admit Provider: Keyshawn Leon <Jolie Robles DO - Last Filed: 07/12/18 19:44> Cosign ED Attending Travisature Attestation: I was immediately available in the department for consultation. This documentation has been reviewed and I agree with assessment and plan. Supervised by Jolie Robles DO
--- NOTE | 2018-07-12 14:15 | ED_ITS ---
HPI - Neuro Symptoms/Deficit <Jolie Robles ONLINE TUTOR-BC - Last Filed: 07/12/18 19:08> General Chief Complaint: Neuro Symptoms/Deficit Stated Complaint: Cant move Time Seen by Provider: 07/12/18 12:35 Source: patient and family Mode of arrival: ambulatory Limitations: no limitations History of Present Illness HPI Narrative: Patient is an 82-year-old female with history of diabetes and hypertension who presents with feeling confused for the past 3 days. Patient's family states she has been increasingly weak, and fell yesterday. She denies any fevers, dysuria, urgency, frequency, chest pain, shortness of breath or abdominal pain. She denies any nausea, vomiting, diarrhea. Patient's family is concerned as patient has been mostly staying in bed the past several days, has been just laying there and not moving. Related Data Home Medications Medication Instructions Recorded Confirmed hydrochlorothiazide 25 mg PO SEE INSTRUCTIONS #0 04/25/16 07/12/18 levothyroxine [Synthroid] 75 mcg PO QDAY #0 04/25/16 07/12/18 losartan [Cozaar] 50 mg PO SEE INSTRUCTIONS #0 04/25/16 07/12/18 metoprolol tartrate [Lopressor] 50 mg PO BID #0 04/25/16 07/12/18 montelukast [Singulair] 4 mg PO SEE INSTRUCTIONS #0 04/25/16 07/12/18 multivitamin [Multiple Vitamins] See Label Instructions .ROUTE 04/25/16 07/12/18 .COMPLEX #0 ranitidine HCl [Zantac] 150 mg PO BID #0 04/25/16 07/12/18 sitagliptin [Januvia] 50 mg PO Q DAY #0 04/25/16 07/12/18 aspirin [Aspirin Childrens] 81 mg PO DAILY 07/12/18 07/12/18 lancets-blood glucose strips 07/12/18 07/12/18 rosuvastatin [Crestor] 5 mg PO DAILY 07/12/18 07/12/18 Allergies Allergy/AdvReac Type Severity Reaction Status Date / Time meperidine [From DEMEROL] Allergy Unknown Verified 07/12/18 11:35 tetracycline [TETRACYCLINE] Allergy Unknown Verified 07/12/18 11:35 Penicillins Allergy Verified 07/12/18 11:35 Review of Systems <Jolie RoblesDIVYA-BC - Last Filed: 07/12/18 19:08> Review of Systems GENERAL: see HPI HEENT: Denies sinus pain, ear pain, sore throat, difficulty swallowing, dizziness. RESPIRATORY: Denies dyspnea, cough, wheezing, hemoptysis, sputum. CARDIOVASCULAR: Denies chest pain, palpitations, orthopnea, edema, GASTROINTESTINAL: Denies nausea, vomiting, abdominal pain, diarrhea, constipation, melena. : Denies dysuria, frequency, incontinence, hematuria, urinary retention. MUSCULOSKELETAL: denies weakness, joint pain, or bony pain SKIN: Denies rash, skin lesions, or other NEUROLOGIC: see HPI PSYCHIATRIC: No concerning psychosocial issues. 12 point review of systems is negative except for those stated above Exam <Jolie Robles ONLINE TUTOR- - Last Filed: 07/12/18 19:08> Narrative Exam Narrative: GENERAL: This is a well-nourished, well-developed patient, lying on stretcher with family at her bedside HEAD: Atraumatic. Normocephalic. No temporal or scalp tenderness. EYES: Pupils equal round and reactive. Extraocular motions intact. No scleral icterus. No injection or drainage. no nystagmus noted ENT: Nose without bleeding, purulent drainage or septal hematoma. Throat without erythema, tonsillar hypertrophy or exudate. Uvula midline. Airway patent. NECK: Trachea midline. No JVD or lymphadenopathy. Supple, nontender, no meningeal signs. CARDIOVASCULAR: Regular rate and rhythm without murmurs, gallops, or rubs. RESPIRATORY: Clear to auscultation. Breath sounds equal bilaterally. No wheezes , rales, or rhonchi. no cough on exam. No increased respiratory effort. No accessory muscle use. GASTROINTESTINAL: Abdomen soft, non-tender, nondistended. No hepato-splenomegaly , or palpable masses. No guarding. Generalized suprapubic pain to palpation, but no guarding. No palpable Pulsatile mass. EXTREMITIES: No clubbing, cyanosis, or edema. No joint tenderness, effusion, or edema noted. strength is equal upper and lower extremities bilaterally. BACK: Nontender without deformity or crepitance. No flank tenderness. NEURO: AOx3. No slurred speech. Cranial nerves grossly intact. Strength is equal upper and lower extremities bilaterally. Intact Radial and Achilles reflexes. SKIN: No rash or erythema. Initial Vital Signs Initial Vital Signs: Vital Signs Temperature 99.5 F 07/12/18 11:35 Pulse Rate 88 07/12/18 11:35 Respiratory Rate 18 07/12/18 11:35 Blood Pressure 150/78 H 07/12/18 11:35 Pulse Oximetry 99 07/12/18 11:35 <Jolie Robles DO - Last Filed: 07/12/18 19:44> Initial Vital Signs Initial Vital Signs: Vital Signs Temperature 99.5 F 07/12/18 11:35 Pulse Rate 88 07/12/18 11:35 Respiratory Rate 18 07/12/18 11:35 Blood Pressure 150/78 H 07/12/18 11:35 Pulse Oximetry 99 07/12/18 11:35 Course <DIVYA Capellan-BC - Last Filed: 07/12/18 19:08> Course Narrative: I checked on the patient and her family several times throughout her stay. Decision to Admit Date: 07/12/18 Decision to Admit time: 14:45 Additional Information: given the patient's UTI, tachycardia and slight fever combined with her weakness and general confusion at home, I am uncomfortable discharging her home. I contacted Dr. leon who kindly agree to admit the patient. Orders Ordered: ED Orders 07/12/18 11:40 CT head/brain wo con Stat 07/12/18 11:41 XR chest 1V Stat 07/12/18 11:49 EKG-12 Lead Stat 07/12/18 11:50 Ictotest Urine Stat Urinalysis and Microscopic Stat 07/12/18 12:10 Complete Blood Count AUTO DIFF Stat Comprehensive Metabolic Panel Stat Lipase Stat Partial Thromboplastin Time Stat Prothrombin Time INR Stat Troponin & CK Cardiac Panel Stat 07/12/18 16:31 Consult to Discharge Planning Routine Consult to Physical Therapy Evaluate & Treat Education, smoking cessation ONGOING 07/12/18 18:20 Basic Metabolic Panel Routine 07/13/18 05:00 Complete Blood Count AUTO DIFF Routine Acetaminophen (Tylenol) 650 mg PO Q6HR PRN PRN Reason: As Needed for Fever/Mild Pain Last Admin: 07/12/18 19:07 Dose: 650 mg Hydrocodone Bitart/Acetaminophen (Hobgood 5/325) 1 tab PO Q4HR PRN PRN Reason: Pain, Moderate (4-6) Al Hydrox/Mg Hydrox/Simethicone (Maalox Plus) 30 ml PO Q6HR PRN PRN Reason: Dyspepsia Aspirin (Aspirin Chew) 81 mg PO DAILY [facility] Enoxaparin Sodium (Lovenox) 30 mg SUBCUT DAILY [facility] Hydrochlorothiazide (Hydrochlorothiazide) 25 mg PO SEE INSTRUCTIONS [facility] Ceftriaxone Sodium/Dextrose (Rocephin) 1 gm in 50 mls @ 100 mls/hr IV Q24H [facility] Sodium Chloride (Normal Saline 0.45%) 1,000 mls @ 100 mls/hr IV CONT [facility] Last Admin: 07/12/18 17:35 Dose: 100 mls/hr Levothyroxine Sodium (Synthroid) 75 mcg PO 0600 [facility] Losartan Potassium (Cozaar) 50 mg PO SEE INSTRUCTIONS [facility] Metoprolol Tartrate (Lopressor) 50 mg PO BID [facility] Naloxone HCl (Narcan) 0.2 mg IV Q2MIN PRN PRN Reason: Opiate Reversal Non-Formulary Medication (Montelukast [Singulair]) 4 mg PO SEE INSTRUCTIONS [facility] Ondansetron HCl (Zofran) 4 mg IV Q8HR PRN PRN Reason: Nausea And Vomiting Ranitidine HCl (Zantac) 150 mg PO BID [facility] Rosuvastatin Calcium (Crestor) 5 mg PO DAILY [facility] Sennosides (Senna) 17.2 mg PO BEDTIME [facility] Sitagliptin Phosphate (Januvia) 50 mg PO DAILY [facility] Discontinued Medications Sodium Chloride (Normal Saline 0.9%) 1,000 mls @ 500 mls/hr IV BOLUS ONE Stop: 07/12/18 16:05 Last Infusion: 07/12/18 16:01 Dose: 0 mls/hr Admin: 07/12/18 14:17 Dose: 500 mls/hr Levofloxacin (Levaquin) 750 mg in 150 mls @ 100 mls/hr IV NOW ONE Stop: 07/12/18 16:46 Last Infusion: 07/12/18 16:01 Dose: 100 mls/hr Admin: 07/12/18 15:26 Dose: 100 mls/hr Potassium Chloride (Klor-Con M20) 40 meq PO NOW ONE Stop: 07/12/18 14:13 Last Admin: 07/12/18 14:17 Dose: 40 meq Vital Signs - 8 hr 07/12/18 12:15 07/12/18 13:00 07/12/18 13:30 Temperature Pulse Rate 81 82 89 Pulse Rate [Orthostatic Lying] Pulse Rate [Orthostatic Sitting] Pulse Rate [Orthostatic Standing] Respiratory Rate 14 15 23 Blood Pressure Blood Pressure [Left Arm] 153/75 H 147/59 H 144/74 H Blood Pressure [Orthostatic Lying] Blood Pressure [Orthostatic Sitting] Blood Pressure [Orthostatic Standing] Pulse Oximetry 100 99 97 07/12/18 14:00 07/12/18 14:17 07/12/18 14:30 Temperature Pulse Rate 82 69 Pulse Rate [Orthostatic Lying] 82 Pulse Rate [Orthostatic Sitting] 108 H Pulse Rate [Orthostatic Standing] 98 H Respiratory Rate 15 18 Blood Pressure Blood Pressure [Left Arm] 133/62 164/73 H Blood Pressure [Orthostatic Lying] 132/62 Blood Pressure [Orthostatic Sitting] 112/97 H Blood Pressure [Orthostatic Standing] 117/60 Pulse Oximetry 100 98 07/12/18 15:09 07/12/18 16:25 07/12/18 19:26 Temperature 100.7 F H 98.5 F 100.5 F H Pulse Rate 79 76 77 Pulse Rate [Orthostatic Lying] Pulse Rate [Orthostatic Sitting] Pulse Rate [Orthostatic Standing] Respiratory Rate 16 17 18 Blood Pressure 155/76 H 159/75 H Blood Pressure [Left Arm] 146/73 H Blood Pressure [Orthostatic Lying] Blood Pressure [Orthostatic Sitting] Blood Pressure [Orthostatic Standing] Pulse Oximetry 99 98 100 <Jolie Robles, DO - Last Filed: 07/12/18 19:44> Orders Ordered: ED Orders 07/12/18 11:40 CT head/brain wo con Stat 07/12/18 11:41 XR chest 1V Stat 07/12/18 11:49 EKG-12 Lead Stat 07/12/18 11:50 Ictotest Urine Stat Urinalysis and Microscopic Stat 07/12/18 12:10 Complete Blood Count AUTO DIFF Stat Comprehensive Metabolic Panel Stat Lipase Stat Partial Thromboplastin Time Stat Prothrombin Time INR Stat Troponin & CK Cardiac Panel Stat 07/12/18 16:31 Consult to Discharge Planning Routine Consult to Physical Therapy Evaluate & Treat Education, smoking cessation ONGOING 07/12/18 18:20 Basic Metabolic Panel Routine 07/13/18 05:00 Complete Blood Count AUTO DIFF Routine Acetaminophen (Tylenol) 650 mg PO Q6HR PRN PRN Reason: As Needed for Fever/Mild Pain Last Admin: 07/12/18 19:07 Dose: 650 mg Hydrocodone Bitart/Acetaminophen (Hobgood 5/325) 1 tab PO Q4HR PRN PRN Reason: Pain, Moderate (4-6) Al Hydrox/Mg Hydrox/Simethicone (Maalox Plus) 30 ml PO Q6HR PRN PRN Reason: Dyspepsia Aspirin (Aspirin Chew) 81 mg PO DAILY [facility] Enoxaparin Sodium (Lovenox) 30 mg SUBCUT DAILY [facility] Hydrochlorothiazide (Hydrochlorothiazide) 25 mg PO SEE INSTRUCTIONS [facility] Ceftriaxone Sodium/Dextrose (Rocephin) 1 gm in 50 mls @ 100 mls/hr IV Q24H [facility] Sodium Chloride (Normal Saline 0.45%) 1,000 mls @ 100 mls/hr IV CONT [facility] Last Admin: 07/12/18 17:35 Dose: 100 mls/hr Levothyroxine Sodium (Synthroid) 75 mcg PO 0600 [facility] Losartan Potassium (Cozaar) 50 mg PO SEE INSTRUCTIONS [facility] Metoprolol Tartrate (Lopressor) 50 mg PO BID [facility] Naloxone HCl (Narcan) 0.2 mg IV Q2MIN PRN PRN Reason: Opiate Reversal Non-Formulary Medication (Montelukast [Singulair]) 4 mg PO SEE INSTRUCTIONS [facility] Ondansetron HCl (Zofran) 4 mg IV Q8HR PRN PRN Reason: Nausea And Vomiting Ranitidine HCl (Zantac) 150 mg PO BID [facility] Rosuvastatin Calcium (Crestor) 5 mg PO DAILY [facility] Sennosides (Senna) 17.2 mg PO BEDTIME [facility] Sitagliptin Phosphate (Januvia) 50 mg PO DAILY [facility] Discontinued Medications Sodium Chloride (Normal Saline 0.9%) 1,000 mls @ 500 mls/hr IV BOLUS ONE Stop: 07/12/18 16:05 Last Infusion: 07/12/18 16:01 Dose: 0 mls/hr Admin: 07/12/18 14:17 Dose: 500 mls/hr Levofloxacin (Levaquin) 750 mg in 150 mls @ 100 mls/hr IV NOW ONE Stop: 07/12/18 16:46 Last Infusion: 07/12/18 16:01 Dose: 100 mls/hr Admin: 07/12/18 15:26 Dose: 100 mls/hr Potassium Chloride (Klor-Con M20) 40 meq PO NOW ONE Stop: 07/12/18 14:13 Last Admin: 07/12/18 14:17 Dose: 40 meq Vital Signs - 8 hr 07/12/18 12:15 07/12/18 13:00 07/12/18 13:30 Temperature Pulse Rate 81 82 89 Pulse Rate [Orthostatic Lying] Pulse Rate [Orthostatic Sitting] Pulse Rate [Orthostatic Standing] Respiratory Rate 14 15 23 Blood Pressure Blood Pressure [Left Arm] 153/75 H 147/59 H 144/74 H Blood Pressure [Orthostatic Lying] Blood Pressure [Orthostatic Sitting] Blood Pressure [Orthostatic Standing] Pulse Oximetry 100 99 97 07/12/18 14:00 07/12/18 14:17 07/12/18 14:30 Temperature Pulse Rate 82 69 Pulse Rate [Orthostatic Lying] 82 Pulse Rate [Orthostatic Sitting] 108 H Pulse Rate [Orthostatic Standing] 98 H Respiratory Rate 15 18 Blood Pressure Blood Pressure [Left Arm] 133/62 164/73 H Blood Pressure [Orthostatic Lying] 132/62 Blood Pressure [Orthostatic Sitting] 112/97 H Blood Pressure [Orthostatic Standing] 117/60 Pulse Oximetry 100 98 07/12/18 15:09 07/12/18 16:25 07/12/18 19:26 Temperature 100.7 F H 98.5 F 100.5 F H Pulse Rate 79 76 77 Pulse Rate [Orthostatic Lying] Pulse Rate [Orthostatic Sitting] Pulse Rate [Orthostatic Standing] Respiratory Rate 16 17 18 Blood Pressure 155/76 H 159/75 H Blood Pressure [Left Arm] 146/73 H Blood Pressure [Orthostatic Lying] Blood Pressure [Orthostatic Sitting] Blood Pressure [Orthostatic Standing] Pulse Oximetry 99 98 100 MDM - Neuro Symptoms/Deficit <DIVYA Capellan- - Last Filed: 07/12/18 19:08> Lab Data Result diagrams: 07/12/18 12:10 07/12/18 18:20 Lab Results 07/12/18 07/12/18 07/12/18 Range/Units 11:50 12:10 12:10 WBC 7.2 (4.5-11.0) X10^3/uL RBC 4.98 (4.0-5.2) X10^6/uL Hgb 10.4 L (12.0-16.0) g/dL Hct 32.7 L (36-46) % MCV 65.6 L (80-100) fL MCH 21.0 L (26-34) PG MCHC 31.9 (30-36) % RDW 15.6 H (11.6-14.8) % Plt Count 139 L (150-400) X10^3/uL Neut % (Auto) Not Reportable Lymph % (Auto) Not Reportable [place] % (Auto) Not Reportable Eos % (Auto) Not Reportable Baso % (Auto) Not Reportable Total Counted 100 Seg Neutrophils % 71.0 H (38-70) % Band Neutrophils % 2.0 L (3-7) % Lymphocytes % (Manual) 8.0 L (25-45) % Monocytes % (Manual) 19.0 H (2-11) % Neutrophils # (Manual) [phone] ([phone]) /uL Plt Morphology Comment Coffee Sampler RBC Morphology See below Hypochromasia 2+ H Anisocytosis 1+ H Microcytosis 2+ H PT 14.2 H (10.1-12.7) SECONDS INR 1.3 (0.9-1.3) APTT 23 L (26.4-36.2) SECONDS Sodium (137-145) mmol/L Potassium (3.4-5.1) mmol/L Chloride (98-107) mmol/L Carbon Dioxide (22-32) mmol/L BUN (7-17) mg/dL Creatinine (0.52-1.04) mg/dL Estimated GFR (>60) mL/min BUN/Creatinine Ratio (6-22) Glucose (80-110) mg/dL Calcium (8.4-10.2) mg/dL Total Bilirubin (0.2-1.3) mg/dL AST (14-36) IU/L ALT (9-52) IU/L Alkaline Phosphatase (38-126) U/L Total Creatine Kinase (30-135) U/L CK-MB (CK-2) CK-MB (CK-2) Rel Index Troponin I (0.01-0.034) ng/mL Total Protein (6.3-8.2) g/dL Albumin (3.5-5.0) g/dL Globulin (1.7-4.1) g/dL Albumin/Globulin Ratio (1.0-2.8) Lipase (23-300) U/L Urine Color Yellow Urine Appearance Cloudy Urine pH 6.0 (4.5-8.0) Ur Specific Gurley 1.020 (1.000-1.035) Urine Protein 2+ H (Negative) Urine Glucose (UA) Negative (Normal) g/dL Urine Ketones Trace H (NEGATIVE) Urine Occult Blood 2+ H (Negative) Urine Nitrate Negative (Negative) Urine Bilirubin 1+ H (NEGATIVE) Urine Ictotest Negative (Negative) Urine Urobilinogen 1.0 (0.2) E.U./dL Ur Leukocyte Esterase 2+ H (NEGATIVE) Urine RBC 0-1/hpf (0-5/HPF) Urine WBC 30-100/hpf H (0-5/HPF) Ur Squamous Epith Cells 10-30 /hpf H Urine Bacteria Many (>30) H (None) Hyaline Casts 1-5/lpf (None) Ur Culture Indicated? Cult not indicated Micro UA Comment Not Reportable 07/12/18 07/12/18 Range/Units 12:10 18:20 WBC (4.5-11.0) X10^3/uL RBC (4.0-5.2) X10^6/uL Hgb (12.0-16.0) g/dL Hct (36-46) % MCV (80-100) fL MCH (26-34) PG MCHC (30-36) % RDW (11.6-14.8) % Plt Count (150-400) X10^3/uL Neut % (Auto) Lymph % (Auto) [place] % (Auto) Eos % (Auto) Baso % (Auto) Total Counted Seg Neutrophils % (38-70) % Band Neutrophils % (3-7) % Lymphocytes % (Manual) (25-45) % Monocytes % (Manual) (2-11) % Neutrophils # (Manual) ([phone]) /uL Plt Morphology Comment RBC Morphology Hypochromasia Anisocytosis Microcytosis PT (10.1-12.7) SECONDS INR (0.9-1.3) APTT (26.4-36.2) SECONDS Sodium 140 139 (137-145) mmol/L Potassium 3.3 L 3.8 (3.4-5.1) mmol/L Chloride 99 100 (98-107) mmol/L Carbon Dioxide 25 27 (22-32) mmol/L BUN 23 H 22 H (7-17) mg/dL Creatinine 1.30 H 1.20 H (0.52-1.04) mg/dL Estimated GFR 39.2 L 43.0 L (>60) mL/min BUN/Creatinine Ratio 17.7 18.3 (6-22) Glucose 110 118 H (80-110) mg/dL Calcium 9.3 8.7 (8.4-10.2) mg/dL Total Bilirubin 1.4 H (0.2-1.3) mg/dL AST 32 (14-36) IU/L ALT 28 (9-52) IU/L Alkaline Phosphatase 64 (38-126) U/L Total Creatine Kinase 72 (30-135) U/L CK-MB (CK-2) TNP CK-MB (CK-2) Rel Index TNP Troponin I 0.018 (0.01-0.034) ng/mL Total Protein 8.3 H (6.3-8.2) g/dL Albumin 4.5 (3.5-5.0) g/dL Globulin 3.8 (1.7-4.1) g/dL Albumin/Globulin Ratio 1.2 (1.0-2.8) Lipase 119 (23-300) U/L Urine Color Urine Appearance Urine pH (4.5-8.0) Ur Specific Gurley (1.000-1.035) Urine Protein (Negative) Urine Glucose (UA) (Normal) g/dL Urine Ketones (NEGATIVE) Urine Occult Blood (Negative) Urine Nitrate (Negative) Urine Bilirubin (NEGATIVE) Urine Ictotest (Negative) Urine Urobilinogen (0.2) E.U./dL Ur Leukocyte Esterase (NEGATIVE) Urine RBC (0-5/HPF) Urine WBC (0-5/HPF) Ur Squamous Epith Cells Urine Bacteria (None) Hyaline Casts (None) Ur Culture Indicated? Micro UA Comment Point of Care Testing Glucose POC [address] scan - head: Radiologist's impression: [address] [address] [address] Scan Report Signed Patient: So Stinson [facility]#: [id number] : 5Acct:[id number] Age/Sex: 82 / FDate of Service: 07/12/18 Loc: ED Accession Number: [id number] Procedure: CT head/brain wo con Ordering Provider: Jolie Robles D.O. PROCEDURE: CT HEAD/BRAIN WO CON INDICATIONS: confusion TECHNIQUE: Noncontrast 4.5 mm thick angled axial sections acquired from the foramen magnum to the vertex, with coronal and sagittal reformats. For radiation dose reduction, the following was used: automated exposure control, adjustment of mA and/or kV according to patient size. COMPARISON: None. FINDINGS: Image quality: Excellent. CSF spaces: Basal cisterns are patent. No extra-axial fluid collections. The ventricles are symmetric in size and shape. Brain: No intracranial bleeds or masses. There is cerebral volume loss for age , with resultant ventricular and sulcal prominence. There are periventricular and deep white matter chronic small vessel ischemic changes. There is intracranial internal carotid artery atherosclerosis. Caval septum variant incidentally noted. Skull and face: Calvarium and visualized facial bones appear intact, without suspicious lesions. Sinuses: Visualized sinuses and mastoids are clear. IMPRESSION: No acute intracranial process Dictated by: Malachi David M.D. on 07/12/2018 at 13:04 Approved by: Malachi David M.D. on 07/12/2018 at 13:08 Chest x-ray: Radiologist's impression: [place] [address] XRay Report Signed Patient: So Stinson [facility]#: [id number] : 5Acct:[id number] Age/Sex: 82 / FDate of Service: 07/12/18 Loc: ED Accession Number: [id number] Procedure: XR chest 1V Ordering Provider: Jolie Robles D.O. PROCEDURE: XR CHEST 1V INDICATIONS: chest pain TECHNIQUE: One view of the chest was acquired. COMPARISON: None. FINDINGS: Surgical changes and devices: None. Lungs and pleura: No pleural effusions or pneumothorax. Lungs are clear. Mediastinum: Mediastinal contours appear normal. Heart size is normal. Bones and chest wall: No suspicious bony lesions. Overlying soft tissues appear unremarkable. Lateral curvature of the spine IMPRESSION: No acute disease Dictated by: Malachi David M.D. on 07/12/2018 at 12:20 Approved by: Malachi David M.D. on 07/12/2018 at 12:21 ECG Data Attestation: I personally reviewed and interpreted this ECG as follows: Interpretation: sinus rhythm. Ventricular rate 90. PVCs noted. No ST elevation or depression. MDM Narrative Medical decision making narrative: The patient presented with chief complaint of confusion, and weakness. She had a thorough evaluation including CBC, CMP troponin cardiac enzymes as well as a head CT, EKG and chest x-ray. She was found have a urinary tract infection. She is also found to be slightly hypokalemic which was replaced in the emergency department. Given her UTI, as well as being tachycardic and febrile, I contacted the hospitalist who kindly agreed to admit the patient. She was treated for her urinary tract infection with Levaquin in the emergency department. I discussed at length admission with the patient and her family, who were agreeable and appreciative. <Jolie Robles, DO - Last Filed: 07/12/18 19:44> Lab Data Lab Results 07/12/18 07/12/18 07/12/18 Range/Units 11:50 12:10 12:10 WBC 7.2 (4.5-11.0) X10^3/uL RBC 4.98 (4.0-5.2) X10^6/uL Hgb 10.4 L (12.0-16.0) g/dL Hct 32.7 L (36-46) % MCV 65.6 L (80-100) fL MCH 21.0 L (26-34) PG MCHC 31.9 (30-36) % RDW 15.6 H (11.6-14.8) % Plt Count 139 L (150-400) X10^3/uL Neut % (Auto) Not Reportable Lymph % (Auto) Not Reportable [place] % (Auto) Not Reportable Eos % (Auto) Not Reportable Baso % (Auto) Not Reportable Total Counted 100 Seg Neutrophils % 71.0 H (38-70) % Band Neutrophils % 2.0 L (3-7) % Lymphocytes % (Manual) 8.0 L (25-45) % Monocytes % (Manual) 19.0 H (2-11) % Neutrophils # (Manual) [phone] ([phone]) /uL Plt Morphology Comment Coffee Sampler RBC Morphology See below Hypochromasia 2+ H Anisocytosis 1+ H Microcytosis 2+ H PT 14.2 H (10.1-12.7) SECONDS INR 1.3 (0.9-1.3) APTT 23 L (26.4-36.2) SECONDS Sodium (137-145) mmol/L Potassium (3.4-5.1) mmol/L Chloride (98-107) mmol/L Carbon Dioxide (22-32) mmol/L BUN (7-17) mg/dL Creatinine (0.52-1.04) mg/dL Estimated GFR (>60) mL/min BUN/Creatinine Ratio (6-22) Glucose (80-110) mg/dL Calcium (8.4-10.2) mg/dL Total Bilirubin (0.2-1.3) mg/dL AST (14-36) IU/L ALT (9-52) IU/L Alkaline Phosphatase (38-126) U/L Total Creatine Kinase (30-135) U/L CK-MB (CK-2) CK-MB (CK-2) Rel Index Troponin I (0.01-0.034) ng/mL Total Protein (6.3-8.2) g/dL Albumin (3.5-5.0) g/dL Globulin (1.7-4.1) g/dL Albumin/Globulin Ratio (1.0-2.8) Lipase (23-300) U/L Urine Color Yellow Urine Appearance Cloudy Urine pH 6.0 (4.5-8.0) Ur Specific [place] 1.020 (1.000-1.035) Urine Protein 2+ H (Negative) Urine Glucose (UA) Negative (Normal) g/dL Urine Ketones Trace H (NEGATIVE) Urine Occult Blood 2+ H (Negative) Urine Nitrate Negative (Negative) Urine Bilirubin 1+ H (NEGATIVE) Urine Ictotest Negative (Negative) Urine Urobilinogen 1.0 (0.2) E.U./dL Ur Leukocyte Esterase 2+ H (NEGATIVE) Urine RBC 0-1/hpf (0-5/HPF) Urine WBC 30-100/hpf H (0-5/HPF) Ur Squamous Epith Cells 10-30 /hpf H Urine Bacteria Many (>30) H (None) Hyaline Casts 1-5/lpf (None) Ur Culture Indicated? Cult not indicated Micro UA Comment Not Reportable 07/12/18 07/12/18 Range/Units 12:10 18:20 WBC (4.5-11.0) X10^3/uL RBC (4.0-5.2) X10^6/uL Hgb (12.0-16.0) g/dL Hct (36-46) % MCV (80-100) fL MCH (26-34) PG MCHC (30-36) % RDW (11.6-14.8) % Plt Count (150-400) X10^3/uL Neut % (Auto) Lymph % (Auto) [place] % (Auto) Eos % (Auto) Baso % (Auto) Total Counted Seg Neutrophils % (38-70) % Band Neutrophils % (3-7) % Lymphocytes % (Manual) (25-45) % Monocytes % (Manual) (2-11) % Neutrophils # (Manual) ([phone]) /uL Plt Morphology Comment RBC Morphology Hypochromasia Anisocytosis Microcytosis PT (10.1-12.7) SECONDS INR (0.9-1.3) APTT (26.4-36.2) SECONDS Sodium 140 139 (137-145) mmol/L Potassium 3.3 L 3.8 (3.4-5.1) mmol/L Chloride 99 100 (98-107) mmol/L Carbon Dioxide 25 27 (22-32) mmol/L BUN 23 H 22 H (7-17) mg/dL Creatinine 1.30 H 1.20 H (0.52-1.04) mg/dL Estimated GFR 39.2 L 43.0 L (>60) mL/min BUN/Creatinine Ratio 17.7 18.3 (6-22) Glucose 110 118 H (80-110) mg/dL Calcium 9.3 8.7 (8.4-10.2) mg/dL Total Bilirubin 1.4 H (0.2-1.3) mg/dL AST 32 (14-36) IU/L ALT 28 (9-52) IU/L Alkaline Phosphatase 64 (38-126) U/L Total Creatine Kinase 72 (30-135) U/L CK-MB (CK-2) TNP CK-MB (CK-2) Rel Index TNP Troponin I 0.018 (0.01-0.034) ng/mL Total Protein 8.3 H (6.3-8.2) g/dL Albumin 4.5 (3.5-5.0) g/dL Globulin 3.8 (1.7-4.1) g/dL Albumin/Globulin Ratio 1.2 (1.0-2.8) Lipase 119 (23-300) U/L Urine Color Urine Appearance Urine pH (4.5-8.0) Ur Specific Gurley (1.000-1.035) Urine Protein (Negative) Urine Glucose (UA) (Normal) g/dL Urine Ketones (NEGATIVE) Urine Occult Blood (Negative) Urine Nitrate (Negative) Urine Bilirubin (NEGATIVE) Urine Ictotest (Negative) Urine Urobilinogen (0.2) E.U./dL Ur Leukocyte Esterase (NEGATIVE) Urine RBC (0-5/HPF) Urine WBC (0-5/HPF) Ur Squamous Epith Cells Urine Bacteria (None) Hyaline Casts (None) Ur Culture Indicated? Micro UA Comment Point of Care Testing Glucose POC 103 Discharge Plan Departure Patient Disposition: Admitted As Inpatient Clinical Impression: Acute UTI Discharge Date/Time: 07/12/18 16:11 Interventions: ED Discharge Assessment Last Done: 07/12/18 15:54 Admit Date/Time: 07/12/18 15:26 Admit Provider: Keyshawn Leon <Jolie Robles DO - Last Filed: 07/12/18 19:44> Cosign ED Attending Travisature Attestation: I was immediately available in the department for consultation. This documentation has been reviewed and I agree with assessment and plan. Supervised by Jolie Robles DO
[2018-07-12] MEDS: POTASSIUM CHLORIDE 20 MEQ TAB 40 MEQ PO (14:17)
[2018-07-12] MEDS: SODIUM CHLORIDE 0.9% 1,000 ML 500 ML IV (14:17)
[2018-07-12] MEDS: levoFLOXacin 750 MG/150 ML PIGGYBACK 100 MG IV (15:26)
--- NOTE | 2018-07-12 16:29 | PM.HP.1 ---
History of Present Illness Date Patient Seen: 07/12/18 Time Patient Seen: 16:30 Chief complaint: Cant move Narrative: This is an 82-year-old female presenting with 4 days of weakness, confusion and falling. She fell and hit her head yesterday. Her head CT and her chest x-ray are normal. Her urine analysis is quite abnormal suggesting a urinary tract infection/pyelonephritis as the cause of this weakness and confusion. She has also had right flank pain for 3 days and urinary frequency for 3 days. She was not aware of having a fever but her temperature is 100? here in the emergency department. She has not seen any hematuria. She has never had a UTI before. Dr. Riggs is her primary care in [place]. Her potassium is 3.3 and her hemoglobin is slightly low, below 11. Patient History Comment: Cholecystectomy Bowel obstruction surgery Appendectomy Tonsillectomy Hysterectomy Hypothyroidism Hypertension Hyperlipidemia Diabetes type 2 Family & Social History Social History: She is accompanied by her , a son and a [id number]. She is a retired school health assessment and treatment teacher. She stopped smoking 65 years ago. She denies alcohol, marijuana and illicit drugs. She would like to be DNR. Meds Home Medications Medication Instructions Recorded Confirmed Type hydrochlorothiazide 25 mg PO SEE INSTRUCTIONS #0 04/25/16 07/12/18 History levothyroxine [Synthroid] 75 mcg PO QDAY #0 04/25/16 07/12/18 History losartan [Cozaar] 50 mg PO SEE INSTRUCTIONS #0 04/25/16 07/12/18 History metoprolol tartrate [Lopressor] 50 mg PO BID #0 04/25/16 07/12/18 History montelukast [Singulair] 4 mg PO SEE INSTRUCTIONS #0 04/25/16 07/12/18 History multivitamin [Multiple Vitamins] See Label Instructions .ROUTE 04/25/16 07/12/18 History .COMPLEX #0 ranitidine HCl [Zantac] 150 mg PO BID #0 04/25/16 07/12/18 History sitagliptin [Januvia] 50 mg PO Q DAY #0 04/25/16 07/12/18 History aspirin [Aspirin Childrens] 81 mg PO DAILY 07/12/18 07/12/18 History lancets-blood glucose strips 07/12/18 07/12/18 History rosuvastatin [Crestor] 5 mg PO DAILY 07/12/18 07/12/18 History Allergies Allergy/AdvReac Type Severity Reaction Status Date / Time meperidine [From DEMEROL] Allergy Unknown Verified 07/12/18 11:35 tetracycline [TETRACYCLINE] Allergy Unknown Verified 07/12/18 11:35 Penicillins Allergy Verified 07/12/18 11:35 Review of Systems Constitutional Constitutional: Reports system reviewed and no additional complaints, except as documented, Denies difficulty sleeping, Denies excessive sweating, Denies poor appetite and Reports weakness Eyes Eyes: Denies double vision ENT Ears, Nose, Mouth, and Throat: No difficulty swallowing Cardiovascular Cardiovascular: Denies chest pain with activity and Denies shortness of breath Respiratory Respiratory: Denies dyspnea and Denies wheezing Gastrointestinal Gastrointestinal: Denies abdominal pain and Denies dysphagia Genitourinary Genitourinary: Denies hematuria, Reports urinary frequency, Denies difficulty voiding, Denies nocturia, Denies urinary incontinence, Denies urinary hesitancy, Reports urinary urgency and Reports flank pain Musculoskeletal Musculoskeletal: Denies abnormal gait and Reports back pain Integumentary/Breasts Skin/Breast: Denies rash Neurologic Neurologic: Denies abnormal gait, Denies focal weakness, Denies memory loss and Reports weakness Psychiatric Psychiatric: Denies memory loss and Denies mood swings Endocrine Endocrine: Denies excessive sweating Hematologic/Lymphatic Hematologic/Lymphatic: Denies easy bleeding Allergic/Immunologic Allergic/Immunologic: Denies wheezing Exam Vital Signs (past 8 hours): - 07/12/18 11:35 07/12/18 12:15 07/12/18 13:00 Temperature 99.5 F Pulse Rate 88 81 82 Pulse Rate [Orthostatic Lying] Pulse Rate [Orthostatic Sitting] Pulse Rate [Orthostatic Standing] Respiratory Rate 18 14 15 Blood Pressure 150/78 H Blood Pressure [Left Arm] 153/75 H 147/59 H Blood Pressure [Orthostatic Lying] Blood Pressure [Orthostatic Sitting] Blood Pressure [Orthostatic Standing] Pulse Oximetry 99 100 99 07/12/18 13:30 07/12/18 14:00 07/12/18 14:17 Temperature Pulse Rate 89 82 Pulse Rate [Orthostatic Lying] 82 Pulse Rate [Orthostatic Sitting] 108 H Pulse Rate [Orthostatic Standing] 98 H Respiratory Rate 23 15 Blood Pressure Blood Pressure [Left Arm] 144/74 H 133/62 Blood Pressure [Orthostatic Lying] 132/62 Blood Pressure [Orthostatic Sitting] 112/97 H Blood Pressure [Orthostatic Standing] 117/60 Pulse Oximetry 97 100 07/12/18 14:30 07/12/18 15:09 07/12/18 16:25 Temperature 100.7 F H 98.5 F Pulse Rate 69 79 76 Pulse Rate [Orthostatic Lying] Pulse Rate [Orthostatic Sitting] Pulse Rate [Orthostatic Standing] Respiratory Rate 18 16 17 Blood Pressure 155/76 H Blood Pressure [Left Arm] 164/73 H 146/73 H Blood Pressure [Orthostatic Lying] Blood Pressure [Orthostatic Sitting] Blood Pressure [Orthostatic Standing] Pulse Oximetry 98 99 98 Oxygen Delivery Method Room Air Narrative Exam Narrative: She is alert and oriented x3, she is pleasant, cooperative and easily humored. Pupils are equally round and reactive to light and accommodation. Extraocular muscles are intact. Sclerae are pink and not icteric. Throat looks normal. No lymph nodes are felt head, neck, supraclavicular area JVD is less than 6 cm No carotid bruits are heard There is no thyromegaly. Heart is regular rate and rhythm without murmur Lungs are clear to auscultation bilaterally Abdomen is soft, nontender, no organomegaly. She is tender on the right flank but not tender on the left flank. Extremities have no ankle edema Neuro exam is notable for lack of lateralizing deficits, intact motor function 5/5, normal reflexes, cranial nerves 2-12 tested intact. No skin rash or jaundice. Objective Labs Result Diagrams: 07/12/18 12:10 07/12/18 12:10 Labs: Laboratory Results - last 24 hr 07/12/18 07/12/18 07/12/18 11:50 12:10 12:10 WBC 7.2 RBC 4.98 Hgb 10.4 L Hct 32.7 L MCV 65.6 L MCH 21.0 L MCHC 31.9 RDW 15.6 H Plt Count 139 L Neut % (Auto) Not Reportable Lymph % (Auto) Not Reportable [place] % (Auto) Not Reportable Eos % (Auto) Not Reportable Baso % (Auto) Not Reportable Total Counted 100 Seg Neutrophils % 71.0 H Band Neutrophils % 2.0 L Lymphocytes % (Manual) 8.0 L Monocytes % (Manual) 19.0 H Neutrophils # (Manual) 5256 Plt Morphology Comment Deicer Tester RBC Morphology See below Hypochromasia 2+ H Anisocytosis 1+ H Microcytosis 2+ H PT 14.2 H INR 1.3 APTT 23 L Sodium Potassium Chloride Carbon Dioxide BUN Creatinine Estimated GFR BUN/Creatinine Ratio Glucose Calcium Total Bilirubin AST ALT Alkaline Phosphatase Total Creatine Kinase CK-MB (CK-2) CK-MB (CK-2) Rel Index Troponin I Total Protein Albumin Globulin Albumin/Globulin Ratio Lipase Urine Color Yellow Urine Appearance Cloudy Urine pH 6.0 Ur Specific [place] 1.020 Urine Protein 2+ H Urine Glucose (UA) Negative Urine Ketones Trace H Urine Occult Blood 2+ H Urine Nitrate Negative Urine Bilirubin 1+ H Urine Ictotest Negative Urine Urobilinogen 1.0 Ur Leukocyte Esterase 2+ H Urine RBC 0-1/hpf Urine WBC 30-100/hpf H Ur Squamous Epith Cells 10-30 /hpf H Urine Bacteria Many (>30) H Hyaline Casts 1-5/lpf Ur Culture Indicated? Cult not indicated Micro UA Comment Not Reportable 07/12/18 12:10 WBC RBC Hgb Hct MCV MCH MCHC RDW Plt Count Neut % (Auto) Lymph % (Auto) [place] % (Auto) Eos % (Auto) Baso % (Auto) Total Counted Seg Neutrophils % Band Neutrophils % Lymphocytes % (Manual) Monocytes % (Manual) Neutrophils # (Manual) Plt Morphology Comment RBC Morphology Hypochromasia Anisocytosis Microcytosis PT INR APTT Sodium 140 Potassium 3.3 L Chloride 99 Carbon Dioxide 25 BUN 23 H Creatinine 1.30 H Estimated GFR 39.2 L BUN/Creatinine Ratio 17.7 Glucose 110 Calcium 9.3 Total Bilirubin 1.4 H AST 32 ALT 28 Alkaline Phosphatase 64 Total Creatine Kinase 72 CK-MB (CK-2) TNP CK-MB (CK-2) Rel Index TNP Troponin I 0.018 Total Protein 8.3 H Albumin 4.5 Globulin 3.8 Albumin/Globulin Ratio 1.2 Lipase 119 Urine Color Urine Appearance Urine pH Ur Specific [place] Urine Protein Urine Glucose (UA) Urine Ketones Urine Occult Blood Urine Nitrate Urine Bilirubin Urine Ictotest Urine Urobilinogen Ur Leukocyte Esterase Urine RBC Urine WBC Ur Squamous Epith Cells Urine Bacteria Hyaline Casts Ur Culture Indicated? Micro UA Comment Assessment & Plan Plan: Assessment/Plan Narrative: Pyelonephritis-start on Rocephin IV. Urine culture is pending. Consider kidney imaging ultrasound versus CT-KUB. Mild confusion of metabolic encephalopathy - this is only subtle and will likely resolve with hydration and antibiotic therapy.\ Hypothyroidism - continue levothyroxine Type 2 diabetes mellitus -continue Januvia and aspirin. Follow blood sugars. Hypertension - continue hydrochlorothiazide, metoprolol and losartan GERD -continue ranitidine Hyperlipidemia - continue Crestor Hypokalemia -this is caused by the hydrochlorothiazide and acute illness. -she has received potassium supplementation in the emergency department and will be recheck in the morning. Anemia - this will be rechecked in the morning and is likely acute illness related. Disposition -depending on symptom progression, urine culture results and normalization of her other factors she can be expected to be in the hospital between 2 and 4 days in my opinion. At discharge she should be able to transition back to home with her family.
[2018-07-12] MEDS: SODIUM CHLORIDE 0.45% 1,000 ML 100 ML IV (17:35)
[2018-07-12 18:42] LABS: BUN Creatinine Ratio 18.3 (6-22); Blood Urea Nitrogen 22 mg/dL (7-17); Calcium 8.7 mg/dL (8.4-10.2); Carbon Dioxide 27 mmol/L (22-32); Chloride 100 mmol/L (98-107); Glucose 118 mg/dL (80-110); HEMOLYSIS < 15 (0-50); Potassium 3.8 mmol/L (3.4-5.1); Sodium 139 mmol/L (137-145)
[2018-07-12] MEDS: ACETAMINOPHEN 325 MG TABLET 650 MG PO (19:07)
--- NOTE | 2018-07-12 19:37 | PC.ADMIT ---
[id number] [place] Admission Note: The patient,So Stinson,82 y/o, was given written information regarding hospital policies, unit procedures and contact persons. Patient's smoking status: Former smoker. Vital Signs - 8 hr 07/12/18 12:15 07/12/18 13:00 07/12/18 13:30 Temperature Pulse Rate 81 82 89 Pulse Rate [Orthostatic Lying] Pulse Rate [Orthostatic Sitting] Pulse Rate [Orthostatic Standing] Respiratory Rate 14 15 23 Blood Pressure Blood Pressure [Left Arm] 153/75 H 147/59 H 144/74 H Blood Pressure [Orthostatic Lying] Blood Pressure [Orthostatic Sitting] Blood Pressure [Orthostatic Standing] Pulse Oximetry 100 99 97 07/12/18 14:00 07/12/18 14:17 07/12/18 14:30 Temperature Pulse Rate 82 69 Pulse Rate [Orthostatic Lying] 82 Pulse Rate [Orthostatic Sitting] 108 H Pulse Rate [Orthostatic Standing] 98 H Respiratory Rate 15 18 Blood Pressure Blood Pressure [Left Arm] 133/62 164/73 H Blood Pressure [Orthostatic Lying] 132/62 Blood Pressure [Orthostatic Sitting] 112/97 H Blood Pressure [Orthostatic Standing] 117/60 Pulse Oximetry 100 98 07/12/18 15:09 07/12/18 16:25 07/12/18 19:26 Temperature 100.7 F H 98.5 F 100.5 F H Pulse Rate 79 76 77 Pulse Rate [Orthostatic Lying] Pulse Rate [Orthostatic Sitting] Pulse Rate [Orthostatic Standing] Respiratory Rate 16 17 18 Blood Pressure 155/76 H 159/75 H Blood Pressure [Left Arm] 146/73 H Blood Pressure [Orthostatic Lying] Blood Pressure [Orthostatic Sitting] Blood Pressure [Orthostatic Standing] Pulse Oximetry 99 98 100
--- NOTE | 2018-07-12 19:38 | PC.NURSE ---
Pt So Stinson arrived on unit at approx 1720 accompanied by her son and dtr in law and spouse Ashwin. Pt has only clothing here, family took home her medications and valuables. She was A and O x 4, ambulatory and calm and cooperative, in no distress.
[2018-07-12] MEDS: METOPROLOL IR 50 MG TABLET PO (20:57)
[2018-07-12] MEDS: SENNOSIDES 8.6 MG TABLET 17.2 MG PO (20:57)
--- NOTE | 2018-07-12 22:28 | PC.NURSE ---
Pt is A and O x 4, VSS. Denies pain and nausea. Able to ambulate to BR with SBA only. Voing qs clear yellow, small BM continent. Able to eat and drink. Slight fever = 100.5F, given 650 mg APAP with good results. HR reg, S1, S2, LS clear.
--- NOTE | 2018-07-12 23:55 | PC.NURSE ---
Addendum entered by Leela Bonilla R.N. 07/13/18 06:15: Awake most of shift despite receiving warm milk (her request). Agreeable to trying Chamomile tea (which she drank very little of) and now is sleeping. Original Note: Patient is alert and oriented but reportedly can be forgetful. Breath sounds CTA with diminished sounds in left LL; RA sat 99%. HRR but bradycardic at 56 bpm apical. BP also elevated at 153/71. Denies nausea. BT present and abdomen is soft. States she has urinary urgency but denies dysuria, frequency or incontinence. Independent with bed mobility; assist to bathroom with SBA. Reports falling out of bed in past 3 months; fall risk score is moderate so bed alarm is on and patient reminded to call for assistance; verbalizes understanding. Denies pain. Wearing bilateral VIRGEN stockings.
[2018-07-13] VITALS (8 sets, daily range): BP systolic 148–180; BP diastolic 74–92; PULSE 57–64; RESP 16–18; TEMP 36.8–36.9; O2SAT 98–100
[2018-07-13] MEDS: SODIUM CHLORIDE 0.45% 1,000 ML 100 ML IV ×2 (03:52→14:25)
[2018-07-13 05:41] LABS: Hematocrit 28.5 % (36-46); Mean Corpuscular HGB Conc 31.6 % (30-36); Mean Corpuscular Hemoglobin 20.9 PG (26-34); Mean Corpuscular Volume 66.1 fL (80-100); Platelet Count 111 X10^3/uL (150-400); Red Cell Distribution Width 15.7 % (11.6-14.8); White Blood Cell Count 4.9 X10^3/uL (4.5-11.0)
[2018-07-13 05:46] LABS: Add Manual Diff / Slide Review YES
[2018-07-13 06:32] LABS: Anisocytosis 2+; Hypochromasia 1+; Microcytosis 3+
[2018-07-13] MEDS: LEVOTHYROXINE 75 MCG TABLET PO (06:40)
--- NOTE | 2018-07-13 08:52 | PT.IIE ---
Addendum entered and electronically signed by Ca Lindsay, PT 07/13/18 11:46: I certify I directly supervised and guided this session. R Eulalia Lindsay, DPT Original Note: Current Diagnoses Tubulo-interstitial nephritis, not specified as acute or chronic (07/12/18) Physical Therapy Inpatient Evaluation/Re-Eval M1 PT/OT-IP Prior Functional Status Start: 07/13/18 10:32 Freq: NEEDED Status: Active Protocol: Document 07/13/18 08:52 (Rec: 07/13/18 10:51 [id number]) Medical Review Prior Functional Status Medical History Reviewed Yes Communication No previous deficits noted Mobility and Gait Pt was previously independent with all mobilities including ambulation, ADLs and self care . Social History Household Members spouse Living Arrangements House Number of Floors (Floors) Two Floors Number of Stairs To Enter/Railing? 3-4 steps B rails Home Environment Standard Height Toilet Tub/Shower Home Equipment Hand Held Shower Additional Social History Comment Lives with who could be avaliable 07/04 if needed. Daughter and [id number] live closeby and could help out. M2 PT-IP Current Condition Start: 07/13/18 10:32 Freq: NEEDED Status: Active Protocol: Document 07/13/18 08:52 (Rec: 07/13/18 10:51 [id number]) Physical Therapy Current Condition Current Condition Evaluation Date 07/13/18 Treatment Diagnosis difficulty walking; UTI Onset Date 07/12/2018 M3 PT-IP Subjective Start: 07/13/18 10:32 Freq: NEEDED Status: Active Protocol: Document 07/13/18 08:52 (Rec: 07/13/18 10:51 [id number]) Subjective Physical Therapy Visit Type Type Initial Evaluation Visit Start Time 08:52 Visit Stop Time 09:19 Total Visit Minutes 27 Number of GOLD LEAF ROLLER Visits 0 Physical Therapy Visit Comments Patient Comments Pt agreeable to mobilize with PT Patient Goals Pt planning to go home with upon d/c M4 PT-IP Mobility and Gait Start: 07/13/18 10:32 Freq: NEEDED Status: Active Protocol: Document 07/13/18 08:52 (Rec: 07/13/18 10:51 [id number]) PT-Bed Mobility Assessment Supine to Sit Supine to Sit Standby Assistance Sit to Supine Sit to Supine Standby Assistance Scooting Scooting to Edge of Bed Standby Assistance PT-Transfer Assessment Sit to and From Stand Sit to and from Stand Contact Guard Assistance Equipment Transfer Assistive Device None Gait Belt Front Wheeled Walker Orthotic/Prosthetic Devices or Brace: No Transfers Transfer Destination Bed Chair Comments Mobility Comments Sit <> stand SBA with fww. Sit <> stand CGA with no AD for balance. Gait Assessment Gait Gait Assistance Required: Standby Assistance Contact Guard Assist Distance (Feet) 20 Able to Maintain Weight Bearing Status Yes During Gait Assistive Devices Assistive Device None Gait Belt Front Wheeled Walker Orthotic/Prosthetic Devices or Brace: No Gait Deviations General Gait Pattern Decreased Stride Length Decreased Feet Clearance Narrow Based Gait Factors Limiting Gait Function Factors Limiting Gait Function Decreased Activity Tolerance Decreased Strength Difficulty Following Directions Incoordination Poor Balance Poor Safety Awareness Comments Gait Comments 20 ft chair to bed with SBA and fww. Cues needed for fww management. 5 ft from bed to recliner with no AD and CGA for balance. PT-Balance Assessment Sitting Balance and Reactions Static Sitting Balance Ability Good Dynamic Sitting Balance Ability Good Standing Balance and Reactions Static Standing Balance Ability Good Dynamic Standing Balance Ability Fair Device Used fww and no AD M5 PT-IP Objective Assessments Start: 07/13/18 10:32 Freq: NEEDED Status: Active Protocol: Document 07/13/18 08:52 (Rec: 07/13/18 10:51 [id number]) Orientation Orientation/Cognition Level of Alertness Confusional State Orientation Name Birthday Place Situation Safety Awareness Decreased Safety Awareness Comments Pt has decreased response time and some questions directions need to be repeated or rephrased this session. Strength Lower Extremity Strength Assessment Within Functional Limits Comments Strength Comments R dorsiflexion decreased compared to L. M6 PT-IP Treatment Start: 07/13/18 10:32 Freq: NEEDED Status: Active Protocol: Document 07/13/18 08:52 (Rec: 07/13/18 10:51 [id number]) Physical Therapy Treatment Education Education Provided Safety M7 PT-IP Assessment and Plan Start: 07/13/18 10:32 Freq: NEEDED Status: Active Protocol: Document 07/13/18 08:52 (Rec: 07/13/18 10:51 [id number]) PT Summary Assessment and Plan Potential Rehabilitation Potential Good Status of Condition at Evaluation Stable Summary Impairments Strength Balance Coordination Cognition Bed Mobility Transfers Gait Activity Tolerance Progress Towards Goals Progressing Toward Goals Assessment Summary Pt with difficulty walking after admit for UTI. Ambulated SBA 20 ft with fww in room and 5 ft with no AD CGA and no apparent LOB or c/o dizziness. Recommend d/c to home with 24/7 assist when pt is medically stable. Goals Bed Mobility Goal Independent Transfer Goal Independent Gait Goal Standby Assistance Gait Distance 150 Other Goals up down 3-4 steps with B rails CGA as needed for safe access to home. Frequency of Treatment Frequency Of Treatment Once a Day Treatment Plan Physical Therapy Treatment Plan Bed Mobility Training Transfer Training Gait Training Therapeutic Exercise Balance Retraining Discharge Planning Neuromuscular Re-ed Coordination Retraining Other Recommendations and Next Treatment Ambulation. Stair climbing. Focus Functional strengthening. Recommendations To Nursing Amount of Assist Needed Standby Assistance 1 Person Assist Discharge Recommendations PT Discharge Recommendations Home with 24/7 Assist
--- NOTE | 2018-07-13 08:52 | PT.IIE ---
Addendum entered and electronically signed by Ca Lindsay, PT 07/13/18 11:43: I certify I directly supervised and guided this session. Malena Lindsay Original Note: Current Diagnoses Tubulo-interstitial nephritis, not specified as acute or chronic (07/12/18) Physical Therapy Inpatient Evaluation/Re-Eval M1 PT/OT-IP Prior Functional Status Start: 07/13/18 10:32 Freq: NEEDED Status: Active Protocol: Document 07/13/18 08:52 (Rec: 07/13/18 10:51 [id number]) Medical Review Prior Functional Status Medical History Reviewed Yes Communication No previous deficits noted Mobility and Gait Pt was previously independent with all mobilities including ambulation, ADLs and self care . Social History Household Members spouse Living Arrangements House Number of Floors (Floors) Two Floors Number of Stairs To Enter/Railing? 3-4 steps B rails Home Environment Standard Height Toilet Tub/Shower Home Equipment Hand Held Shower Additional Social History Comment Lives with who could be avaliable 07/04 if needed. Daughter and [id number] live closeby and could help out. M2 PT-IP Current Condition Start: 07/13/18 10:32 Freq: NEEDED Status: Active Protocol: Document 07/13/18 08:52 (Rec: 07/13/18 10:51 [id number]) Physical Therapy Current Condition Current Condition Evaluation Date 07/13/18 Treatment Diagnosis difficulty walking; UTI Onset Date 07/12/2018 M3 PT-IP Subjective Start: 07/13/18 10:32 Freq: NEEDED Status: Active Protocol: Document 07/13/18 08:52 (Rec: 07/13/18 10:51 [id number]) Subjective Physical Therapy Visit Type Type Initial Evaluation Visit Start Time 08:52 Visit Stop Time 09:19 Total Visit Minutes 27 Number of PROCESS SUPERVISOR Visits 0 Physical Therapy Visit Comments Patient Comments PT agreeable to mobilize with PT Patient Goals Pt planning to go home with upon d/c M4 PT-IP Mobility and Gait Start: 07/13/18 10:32 Freq: NEEDED Status: Active Protocol: Document 07/13/18 08:52 (Rec: 07/13/18 10:51 [id number]) PT-Bed Mobility Assessment Supine to Sit Supine to Sit Standby Assistance Sit to Supine Sit to Supine Standby Assistance Scooting Scooting to Edge of Bed Standby Assistance PT-Transfer Assessment Sit to and From Stand Sit to and from Stand Contact Guard Assistance Equipment Transfer Assistive Device None Gait Belt Front Wheeled Walker Orthotic/Prosthetic Devices or Brace: No Transfers Transfer Destination Bed Chair Comments Mobility Comments Sit <> stand SBA with fww. Sit <> stand CGA with no AD for balance. Gait Assessment Gait Gait Assistance Required: Standby Assistance Contact Guard Assist Distance (Feet) 20 Able to Maintain Weight Bearing Status Yes During Gait Assistive Devices Assistive Device None Gait Belt Front Wheeled Walker Orthotic/Prosthetic Devices or Brace: No Gait Deviations General Gait Pattern Decreased Stride Length Decreased Feet Clearance Narrow Based Gait Factors Limiting Gait Function Factors Limiting Gait Function Decreased Activity Tolerance Decreased Strength Difficulty Following Directions Incoordination Poor Balance Poor Safety Awareness Comments Gait Comments 20 ft chair to bed with SBA and fww. Cues needed for fww management. 5 ft from bed to recliner with no AD and CGA for balance. PT-Balance Assessment Sitting Balance and Reactions Static Sitting Balance Ability Good Dynamic Sitting Balance Ability Good Standing Balance and Reactions Static Standing Balance Ability Good Dynamic Standing Balance Ability Fair Device Used fww and no AD M5 PT-IP Objective Assessments Start: 07/13/18 10:32 Freq: NEEDED Status: Active Protocol: Document 07/13/18 08:52 (Rec: 07/13/18 10:51 [id number]) Orientation Orientation/Cognition Level of Alertness Confusional State Orientation Name Birthday Place Situation Safety Awareness Decreased Safety Awareness Comments Pt has decreased response time and some questions directions need to be repeated or rephrased this session. Strength Lower Extremity Strength Assessment Within Functional Limits Comments Strength Comments R dorsiflexion decreased compared to L. M6 PT-IP Treatment Start: 07/13/18 10:32 Freq: NEEDED Status: Active Protocol: Document 07/13/18 08:52 (Rec: 07/13/18 10:51 [id number]) Physical Therapy Treatment Education Education Provided Safety M7 PT-IP Assessment and Plan Start: 07/13/18 10:32 Freq: NEEDED Status: Active Protocol: Document 07/13/18 08:52 (Rec: 07/13/18 10:51 [id number]) PT Summary Assessment and Plan Potential Rehabilitation Potential Good Status of Condition at Evaluation Stable Summary Impairments Strength Balance Coordination Cognition Bed Mobility Transfers Gait Activity Tolerance Progress Towards Goals Progressing Toward Goals Assessment Summary Pt with difficulty walking after admit for UTI. Ambulated SBA 20 ft with fww in room and 5 ft with no AD CGA and no apparent LOB or c/o dizziness. Recommend d/c to home with 24/7 assist when pt is medically stable. Goals Bed Mobility Goal Independent Transfer Goal Independent Gait Goal Standby Assistance Gait Distance 150 Other Goals up down 3-4 steps with B rails CGA as needed for safe access to home. Frequency of Treatment Frequency Of Treatment Once a Day Treatment Plan Physical Therapy Treatment Plan Bed Mobility Training Transfer Training Gait Training Therapeutic Exercise Balance Retraining Discharge Planning Neuromuscular Re-ed Coordination Retraining Other Recommendations and Next Treatment Ambulation. Stair climbing. Focus Functional strengthening. Recommendations To Nursing Amount of Assist Needed Standby Assistance 1 Person Assist Discharge Recommendations PT Discharge Recommendations Home with 24/7 Assist
--- NOTE | 2018-07-13 09:19 | CM.DANOTE ---
Addendum entered by Delia Moreno LPN 07/13/18 12:30: Admission status is confirmed by UR RN as INPT Original Note: Discharge Planning/Care Management DCP: assessment: case received, EMR reviewed and met with pt. Introduced self and role. Pt is an 82 year old female who admitted to care of hospitalist team yesterday late afternoon. PCP: Dr. Riggs Payer: Medicare and [employer]. Admission Status: currently in review by UR LOAN German. Dr. Leon in his H&P does state he anticipates pt will be in the hospital setting for treament: 2-[address] Nichols takes over for him today. P: in process. PT is currently seeing pt this morning. DCP team will follow prn for d/c issues and options as POC unfolds. CM Discharge Assessment Start: 07/13/18 09:14 Freq: Status: Active Protocol: Document 07/13/18 09:14 ITV (Rec: 07/13/18 09:19 [email or web address] [id number]) Discharge Planning Assessment Advance Directives? No Advance Directives on File Yes History Provided By Patient Medical Record Prior Living Arrangements House Household Members spouse children Comment son Roc and his Yandy Is patient alert and oriented? Yes: alert, seems to be oriented during this discussion Whiteboard Updated in Patient Room with Yes name and ext. # of Vehicle Dismantler Review Status In Process Next Review Type Continued Stay Review
[2018-07-13] MEDS: ENOXAPARIN 30 MG/0.3 ML SYRINGE SUBCUT (09:43)
[2018-07-13] MEDS: LOSARTAN 50 MG TABLET PO ×2 (09:43→19:41)
[2018-07-13] MEDS: ROSUVASTATIN 10 MG TABLET 5 MG PO (09:44)
[2018-07-13] MEDS: METOPROLOL IR 50 MG TABLET PO ×2 (09:44→22:04)
[2018-07-13] MEDS: SITAGLIPTIN 50 MG TABLET PO (09:45)
[2018-07-13] MEDS: ASPIRIN EC 81 MG TABLET PO (09:52)
--- NOTE | 2018-07-13 11:14 | PC.SBAR ---
SITUATION: High Risk for Fall due to UTI and loose stools [] BACKGROUND: Patient reports Urinary urgency, history of fall in past 4 days [] ASSESSMENT: Patient assessed by PT, gait steady, alert and oriented, follows directions; PT recommends fww in hallway, no device for room but SBA to and from bathroom; patient using call light, as needed [] RECOMMENDATION: Patient checks Q1; frequent reminders for patient to use call light; follow risk for fall guidelines [] RESPONSE: Patient responsive to call light instructions []
--- NOTE | 2018-07-13 18:53 | PM.PN.1 ---
Subjective Date Patient Seen: 07/13/18 Interval history: Patient notes improvement in right flank pain and also feeling stronger and better overall. Also fever has resolved. Exam Vital Signs (past 8 hours): - 07/13/18 12:00 07/13/18 15:00 07/13/18 15:25 Temperature 98.3 F 98.3 F Pulse Rate 59 L 57 L Respiratory Rate 16 16 Blood Pressure 148/79 H 180/92 H Pulse Oximetry 100 98 98 Oxygen Delivery Method Room Air Narrative Exam Narrative: GENERAL: Patient is in no acute distress HEENT: Head normocephalic, atraumatic. Mucous membranes moist. CHEST: Clear to auscultation bilaterally. CARDIAC: Regular rate and rhythm. ABDOMEN: Nondistended, soft, mild left flank tenderness present Back: Mild left CVAT present EXTREMITIES: no edema. NEUROLOGICAL: Alert, pleasant, no focal findings SKIN: Warm, dry, no petechiae, no rash Objective Labs Result Diagrams: 07/13/18 04:45 07/12/18 18:20 Labs: Laboratory Results - last 24 hr 07/13/18 04:45 WBC 4.9 RBC 4.30 Hgb 9.0 L Hct 28.5 L MCV 66.1 L MCH 20.9 L MCHC 31.6 RDW 15.7 H Plt Count 111 L Neut % (Auto) Not Reportable Lymph % (Auto) Not Reportable [place] % (Auto) Not Reportable Eos % (Auto) Not Reportable Baso % (Auto) Not Reportable Seg Neutrophils % 51.0 Band Neutrophils % 2.0 L Lymphocytes % (Manual) 27.0 Monocytes % (Manual) 12.0 H Eosinophils % (Manual) 8.0 H RBC Morphology See below Hypochromasia 1+ H Anisocytosis 2+ H Microcytosis 3+ H Assessment & Plan Plan: Assessment/Plan Narrative: 1. Acute pyelonephritis, left side: Improving on dual IV antibiotic with Rocephin and Levaquin. UA microscopic showed many bacteria but unfortunately excessive squamous cells were present and a culture was not done. Patient has not been on antibiotics recently to her knowledge. Plan: Stop her Rocephin and continue Levaquin as single agent. 2. Type 2 diabetes: Stable. Continue Januvia per home routine. 3. Hypertension. Blood pressure since admission have remained high, up to 180s systolic. Question whether her outpatient control is adequate. Plan: Increased losartan to 100 mg daily. Continue metoprolol tartrate 50 mg twice daily and HCTZ 25 mg daily. 4. Hypokalemia present on admission. Corrected. 5. Acute anemia and thrombocytopenia, likely inflammatory block. Recheck as outpatient. 6. Mild hyperbilirubinemia, total bilirubin 1.4 with normal other LFTs on admission. Not significant. Disposition: Patient with improving course and likely can discharge tomorrow, Friday on oral Levaquin, to complete 7 day antibiotic course. Quality VTE Deep Vein Thrombosis/Pulmonary Embolism Present on Admission: No
[2018-07-13] MEDS: CEFTRIAXONE 1 GM/50 ML FROZ.PIGGY IV (19:00)
[2018-07-13] MEDS: ACETAMINOPHEN 325 MG TABLET 650 MG PO (19:53)
[2018-07-14] VITALS (10 sets, daily range): BP systolic 150–176; BP diastolic 69–86; PULSE 50–65; RESP 15–18; TEMP 36.1–36.8; O2SAT 96–100
[2018-07-14] MEDS: SODIUM CHLORIDE 0.45% 1,000 ML 100 ML IV (00:46)
--- NOTE | 2018-07-14 01:04 | PC.NURSE ---
Addendum entered by Leela Bonilla R.N. 07/14/18 06:19: Denies any nausea and/or headache this morning. Has slept at intervals. Original Note: Addendum entered by Leela Bonilla R.N. 07/14/18 02:17: Complains of 8/10 headache; requested/medicated with Tylenol. Also still feeling slightly nauseated and now agreeable to taking Zofran. Original Note: Patient is alert and oriented. Breath sounds CTA with RA sat of 99%. HRR but bradycardic at 48 bpm apical. Admits to slight nausea but declines need for antiemetic. BT present and abdomen is soft. States she has burning discomfort with urination. Chronic urinary urgency but no incontinence. Independent with bed mobility. Is assisted to bathroom with 1 assist due to history of falls. VIRGEN stockings applied. Denies any pain. Is impulsive and at risk for falls; bed alarm is activated.
[2018-07-14] MEDS: ONDANSETRON 4 MG/2 ML INJ IV (02:13)
[2018-07-14] MEDS: ACETAMINOPHEN 325 MG TABLET 650 MG PO ×2 (02:13→08:19)
[2018-07-14] MEDS: LEVOTHYROXINE 75 MCG TABLET PO (06:13)
[2018-07-14] MEDS: ASPIRIN EC 81 MG TABLET PO (10:01)
[2018-07-14] MEDS: ENOXAPARIN 30 MG/0.3 ML SYRINGE SUBCUT (10:02)
[2018-07-14] MEDS: hydroCHLOROthiazide 25 MG TABLET PO (10:07)
[2018-07-14] MEDS: levoFLOXacin 250 MG TABLET 750 MG PO (10:08)
[2018-07-14] MEDS: LOSARTAN 50 MG TABLET 100 MG PO (10:09)
[2018-07-14] MEDS: ROSUVASTATIN 10 MG TABLET 5 MG PO (10:11)
[2018-07-14] MEDS: SITAGLIPTIN 50 MG TABLET PO (10:12)
--- NOTE | 2018-07-14 11:44 | PT.IPTN ---
Addendum entered and electronically signed by Ca Lindsay, PT 07/14/18 13:25: I certify I directly supervised and guided this session. Malena Lindsay, DPT Original Note: Current Diagnoses Tubulo-interstitial nephritis, not specified as acute or chronic (07/12/18) Physical Therapy Treatment Note M2 PT-IP Current Condition Start: 07/13/18 10:32 Freq: NEEDED Status: Active Protocol: Document 07/13/18 08:52 (Rec: 07/13/18 10:51 [id number]) Physical Therapy Current Condition Current Condition Evaluation Date 07/13/18 Treatment Diagnosis difficulty walking; UTI Onset Date 07/12/2018 M3 PT-IP Subjective Start: 07/13/18 10:32 Freq: NEEDED Status: Active Protocol: Document 07/14/18 11:44 (Rec: 07/14/18 12:15 [email or web address]) Subjective Physical Therapy Visit Type Type Treatment Note Visit Start Time 11:44 Visit Stop Time 11:59 Total Visit Minutes 15 Number of MANAGER OF APPLICATIONS DEVELOPMENT Visits 0 Physical Therapy Visit Comments Patient Comments Pt agreeable to mobilize with PT including attempting stairs . Patient Goals Pt planning to go home with at d/c M4 PT-IP Mobility and Gait Start: 07/13/18 10:32 Freq: NEEDED Status: Active Protocol: Document 07/14/18 11:44 (Rec: 07/14/18 12:15 [email or web address]) PT-Transfer Assessment Sit to and From Stand Sit to and from Stand Standby Assistance Equipment Transfer Assistive Device Gait Belt Orthotic/Prosthetic Devices or Brace: No Transfers Transfer Destination Chair Gait Assessment Gait Gait Assistance Required: Standby Assistance Contact Guard Assist Distance (Feet) 50 Able to Maintain Weight Bearing Status Yes During Gait Assistive Devices Assistive Device Gait Belt Orthotic/Prosthetic Devices or Brace: No Gait Deviations General Gait Pattern Decreased Stride Length Decreased Feet Clearance Factors Limiting Gait Function Factors Limiting Gait Function Decreased Activity Tolerance Decreased Strength Poor Balance Comments Gait Comments Pt ambulates 50 ft X2 SBA and is (+) one episode LOB which she is able to recover with contact cue. Stair Climbing Assessment Evaluation Level of Assist On Stairs Contact Guard Assistance Devices Stair Climbing Assistive Devices None Left Railing Right Railing Technique/Endurance Stair Climbing Direction Ascend and Descend Number of Steps Climbed 5 Query Text: Stair Climbing Set # Repetitions (reps) 2 Comments Stair Climbing Comments Pt ascends/descends using B rails and CGA for balance. She demonstrates decreased speed but is able to complete without LOB. M5 PT-IP Objective Assessments Start: 07/13/18 10:32 Freq: NEEDED Status: Active Protocol: Document 07/13/18 08:52 (Rec: 07/13/18 10:51 [id number]) Orientation Orientation/Cognition Level of Alertness Confusional State Orientation Name Birthday Place Situation Safety Awareness Decreased Safety Awareness Comments Pt has decreased response time and some questions directions need to be repeated or rephrased this session. Strength Lower Extremity Strength Assessment Within Functional Limits Comments Strength Comments R dorsiflexion decreased compared to L. M6 PT-IP Treatment Start: 07/13/18 10:32 Freq: NEEDED Status: Active Protocol: Document 07/14/18 11:44 (Rec: 07/14/18 12:15 [email or web address]) Physical Therapy Treatment Education Education Provided Safety Other Treatments Other Treatment Performed Caregiver education () included donning/doffing gait belt, hand placement during safeguarding and safeguarding technique on stairs. Caregiver/spouse is able to demonstrate all of these skills this session and both he and the pt state being comfortable with concepts and performance. Also discussed importance that she is not left alone until she is more fully recovered as her balance is still impaired. Both pt and /caregiver verbalize understanding. M7 PT-IP Assessment and Plan Start: 07/13/18 10:32 Freq: NEEDED Status: Active Protocol: Document 07/14/18 11:44 (Rec: 07/14/18 12:15 [email or web address]) PT Summary Assessment and Plan Potential Rehabilitation Potential Good Summary Impairments Strength Balance Coordination Bed Mobility Transfers Gait Activity Tolerance Progress Towards Goals Progressing Toward Goals Assessment Summary Pt able to ambulate a total of 100 ft SBA with one episode of minor LOB which she is able to recover with tactile cue. She also completed up/down 5 stairs X 2 with CGA and B rails. CAregiver education completed. Recommend dc to home with 24/7 assist. Goals Bed Mobility Goal Independent Transfer Goal Standby Assistance Gait Goal Standby Assistance Gait Distance 150 Frequency of Treatment Frequency Of Treatment Discharge Recommendations To Nursing Amount of Assist Needed Standby Assistance Discharge Recommendations PT Discharge Recommendations Home with 24/7 Assist
--- NOTE | 2018-07-14 17:50 | P.PN_ITS ---
Subjective Date Patient Seen: 07/14/18 Interval history: Patient with overall improvement and less flank pain. She appeared ready for discharge this morning. However, she developed recurrent severe headache and feels unable to manage at home today with this headache. She does report headache history. Exam Vital Signs (past 8 hours): - 07/14/18 10:09 07/14/18 11:45 07/14/18 15:49 Temperature 97.8 F 98.3 F Pulse Rate 52 L 50 L 56 L Respiratory Rate 16 15 Blood Pressure 150/70 H 160/69 H 176/83 H Pulse Oximetry 96 100 Oxygen Delivery Method Room Air Oxygen Flow Rate 0 Narrative Exam Narrative: GENERAL: Patient is in no acute distress HEENT: Head normocephalic, atraumatic. Mucous membranes moist. CHEST: Clear to auscultation bilaterally. CARDIAC: Regular rate and rhythm. ABDOMEN: Nondistended, soft, mild left flank tenderness present Back: Mild left CVAT present EXTREMITIES: no edema. NEUROLOGICAL: Alert, pleasant, no focal findings SKIN: Warm, dry, no petechiae, no rash Objective Labs Result Diagrams: 07/13/18 04:45 07/12/18 18:20 Assessment & Plan Plan: Assessment/Plan Narrative: 1. Acute pyelonephritis, left side: She improved on IV antibiotic and was transitioned to oral Levaquin 750 mg every 48 hr. UA microscopic showed many bacteria but unfortunately excessive squamous cells were present and a culture was not done. Patient has not been on antibiotics recently to her knowledge. Plan: Continue Levaquin 750 mg every 48 hr by mouth dose for EGFR 45% range. 2. Type 2 diabetes: Stable. Continue Januvia per home routine. 3. Hypertension, bradycardia. Blood pressure since admission have remained high, up to 180s systolic. Question whether her outpatient control is adequate. Also her heart rate was getting below 50 beats per minute on her beta -serg therapy. Plan: Increased losartan to 100 mg daily. Decrease metoprolol tartrate to 25 mg twice daily. Continue HCTZ 25 mg daily. 4. Hypokalemia present on admission. Corrected. 5. Acute anemia and thrombocytopenia, likely inflammatory block. Recheck as outpatient. 6. Mild hyperbilirubinemia, total bilirubin 1.4 with normal other LFTs on admission. Not significant. 7. Recurrent headache, likely migrainous. She takes hydrocodone at home, ordered. Also ordered Compazine IV as needed. Disposition: Discharge home in a.m. on oral Levaquin. Quality VTE Deep Vein Thrombosis/Pulmonary Embolism Present on Admission: No
[2018-07-14] MEDS: METOPROLOL IR 25 MG TABLET PO (21:58)
[2018-07-14] MEDS: SENNOSIDES 8.6 MG TABLET 17.2 MG PO (22:02)
[2018-07-14] MEDS: SODIUM CHLORIDE 0.9% FLUSH 10 ML IV (22:04)
[2018-07-15 00:55] VITALS: BP 159/69; PULSE 56; RESP 16; TEMP 36.9; O2SAT 99
[2018-07-15] MEDS: ACETAMINOPHEN 325 MG TABLET 650 MG PO ×2 (00:56→08:28)
[2018-07-15 01:00] VITALS: O2SAT 99
[2018-07-15 04:32] VITALS: BP 148/72; PULSE 57; RESP 18; TEMP 36.3; O2SAT 100
[2018-07-15] MEDS: LEVOTHYROXINE 75 MCG TABLET PO (05:49)
[2018-07-15 07:25] VITALS: BP 137/58; PULSE 50; RESP 16; TEMP 36.6; O2SAT 100
[2018-07-15 08:20] VITALS: O2SAT 100
[2018-07-15] MEDS: hydroCHLOROthiazide 25 MG TABLET PO (08:24)
[2018-07-15] MEDS: SITAGLIPTIN 50 MG TABLET PO (08:24)
[2018-07-15] MEDS: ASPIRIN EC 81 MG TABLET PO (08:28)
[2018-07-15] MEDS: LOSARTAN 50 MG TABLET 100 MG PO (08:28)
[2018-07-15] MEDS: ENOXAPARIN 30 MG/0.3 ML SYRINGE SUBCUT (08:31)
[2018-07-15] MEDS: SODIUM CHLORIDE 0.9% FLUSH 10 ML IV (08:32)
[2018-07-15] MEDS: ROSUVASTATIN 10 MG TABLET 5 MG PO (09:00)
--- NOTE | 2018-07-15 12:07 | PC.NURSE ---
Discharge D/c instructions provided to pt and her . notified to make fu apt with PCP in one week. Per discussion with Dr Nichols, ok for pt to take metoprolol without checking HR prior. Pt to have PCP check at f/u apt. Pt took all belongings with her. PIV removed prior to d/c. 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
--- NOTE | 2018-07-15 19:41 | P.DS_ITS ---
History of Present Illness Chief complaint: Cant move Narrative: This is an 82-year-old female presenting with 4 days of weakness, confusion and falling. She fell and hit her head yesterday. Her head CT and her chest x-ray are normal. Her urine analysis is quite abnormal suggesting a urinary tract infection/pyelonephritis as the cause of this weakness and confusion. She has also had right flank pain for 3 days and urinary frequency for 3 days. She was not aware of having a fever but her temperature is 100? here in the emergency department. She has not seen any hematuria. She has never had a UTI before. Dr. Riggs is her primary care in [place]. Her potassium is 3.3 and her hemoglobin is slightly low, below 11. Discharge Providers Date of admission: 07/12/18 15:26 Primary care physician: Shireen Riggs MD Consults: 07/12/18 16:31 Consult to Discharge Planning Routine Comment: Consult to Physical Therapy Evaluate & Treat Comment: Physician Instructions: Evaluate and Treat Discharge provider: Neal Nichols MD Discharge Date: 07/15/18 Summary Discharge Diagnosis: 1. Acute pyelonephritis, left side 2. Type 2 diabetes 3. Hypertension, poor control 4. Bradycardia secondary to beta-serg therapy for hypertension 5. Acute anemia and thrombocytopenia, likely inflammatory block 6. Recurrent headache, NOS 7. Chronic kidney disease stage 3 Hospital Course: 1. Acute pyelonephritis, left side: She improved on IV antibiotic and was transitioned to oral Levaquin 750 mg every 48 hr. She just needs 2 more doses by mouth as outpatient to finish antibiotic course. UA microscopic showed many bacteria but unfortunately excessive squamous cells were present and a culture was not done. Patient has not been on antibiotics recently to her knowledge. 2. Type 2 diabetes: Stable. Continue Januvia per home routine. 3. Hypertension, bradycardia. Blood pressure since admission have remained high, up to 180s systolic. Question whether her outpatient control is adequate. Also her heart rate was getting below 50 beats per minute on her beta -serg therapy. Increased losartan to 100 mg daily. Decreased metoprolol tartrate to 25 mg twice daily. Continued HCTZ 25 mg daily. 4. Hypokalemia present on admission. Corrected. 5. Acute anemia and thrombocytopenia, likely inflammatory block. Recheck as outpatient. 6. Mild hyperbilirubinemia, total bilirubin 1.4 with normal other LFTs on admission. Not significant. 7. Recurrent headache, likely migrainous. She takes hydrocodone at home, ordered. Also ordered Compazine IV as needed. Status at Discharge Functional status at discharge: independent ambulation Overall status at discharge: patient is back to baseline Time Spent with Patient Greater than 30 minutes Exam Vital Signs (past 8 hours): Oxygen Delivery Method Room Air Oxygen Flow Rate 0 Objective Labs Result Diagrams: 07/13/18 04:45 07/12/18 18:20 Discharge Plan Discharge Plan Patient Disposition: Home Discharge Med Rec/Prescriptions Prescriptions: New levofloxacin [Levaquin] 750 mg tablet 750 mg PO Q48H Qty: 2 RF: 0 losartan 100 mg tablet 100 mg PO DAILY Qty: 30 RF: 0 metoprolol tartrate 25 mg tablet 25 mg PO BID Qty: 60 RF: 0 Continue sitagliptin [Januvia] 50 MG tablet 50 mg PO Q DAY Qty: 0 RF: 0 levothyroxine [Synthroid] 75 MCG tablet 75 mcg PO QDAY Qty: 0 RF: 0 ranitidine HCl [Zantac] 150 MG tablet 150 mg PO BID Qty: 0 RF: 0 montelukast [Singulair] 4 MG tablet,chewable 4 mg PO SEE INSTRUCTIONS PRN (Reason: allergies/asthma) Qty: 0 RF: 0 multivitamin [Multiple Vitamins] 1 EACH tablet See Label Instructions .ROUTE .COMPLEX Qty: 0 RF: 0 aspirin [Aspirin Childrens] 81 mg Tablet,Chewable 81 mg PO DAILY RF: 0 rosuvastatin [Crestor] 5 mg Tablet 5 mg PO DAILY RF: 0 lancets-blood glucose strips RF: 0 hydrochlorothiazide 25 mg tablet 25 mg PO DAILY RF: 0 Discontinued losartan [Cozaar] 50 MG tablet 50 mg PO DAILY Qty: 0 RF: 0 metoprolol tartrate [Lopressor] 50 MG tablet 50 mg PO BID Qty: 0 RF: 0 Follow up/Referrals: Shireen Riggs MD [Primary Care Provider] - 1 Week (please call & schedule follow up with your primary care provider for 1 week from discharge of hospital) Provider Discharge Instructions Diet: Regular Visit Report/Discharge Packet Instructions: DI for Kidney Infection, How to Prevent Falls Visit Report Forms: Stroke Signs & Symptoms Discharge Data Primary Care Provider: Shireen Riggs Attending Provider: Keyshawn Leon Admit Date/Time: 07/12/18 15:26 Discharges patient from system. Discharge Date/Time: 07/15/18 12:45 Quality VTE Deep Vein Thrombosis/Pulmonary Embolism Present on Admission: No
== END 2018-07-15 12:45 | disposition home or self-care (01) | DRG 690 ==
LOC: ED 15:17 → AC 15:27
PROVIDERS: Emergency Medicine; Admitting Provider Family Medicine; Emergency Provider Nurse Practitioner Family; PCP Internal Medicine; Visit Provider Family Medicine
DX: N10 Acute pyelonephritis (principal); E87.6 Hypokalemia; D69.59 Other secondary thrombocytopenia; D64.89 Other specified anemias; I12.9 Hypertensive chronic kidney disease with stage 1 through stage 4 chronic kidney disease, or unspecified chronic kidney disease; E11.22 Type 2 diabetes mellitus with diabetic chronic kidney disease; N18.3 Chronic kidney disease, stage 3 (moderate); Z79.84 Long term (current) use of oral hypoglycemic drugs; R00.1 Bradycardia, unspecified; T44.7X5A Adverse effect of beta-adrenoreceptor antagonists, initial encounter; G43.909 Migraine, unspecified, not intractable, without status migrainosus
CPT/HCPCS: 36415; 36591; 70450; 71045; 80048; 80053; 81001; 82550; 82962; 83690; 84484; 85025; 85610; 85730; 93005; 93010; 93041; 96361; 96365; 97161; 97530; 99285; J1650; J1956; J2405; J7050

== ENCOUNTER 2018-07-22 17:02 | Inpatient (IN) | payer MEDICARE, OTHER, SELFPAY ==
[2018-07-12 16:37] VITALS: BMI 25.6
[2018-07-22] VITALS (10 sets, daily range): BP systolic 144–201; BP diastolic 76–93; PULSE 56–80; RESP 17–20; TEMP 36.4–37; O2SAT 96–100; BMI 25.6
--- NOTE | 2018-07-22 18:42 | DI.RAD.S_ITS ---
PROCEDURE: XR CHEST 1V INDICATIONS: hypertension TECHNIQUE: One view of the chest was acquired. COMPARISON: [facility], CR, XR CHEST 1V, 07/12/2018, 11:52. FINDINGS: Surgical changes and devices: None. Lungs and pleura: No pleural effusions or pneumothorax. Lungs are clear. Mediastinum: Mediastinal contours appear normal. Heart size is normal. Bones and chest wall: No suspicious bony lesions. Overlying soft tissues appear unremarkable. IMPRESSION: No acute disease. Dictated by: Malachi David M.D. on 07/22/2018 at 19:33 Approved by: Malachi David M.D. on 07/22/2018 at 19:34
--- NOTE | 2018-07-22 18:42 | DI.CT.S_ITS ---
PROCEDURE: CT HEAD/BRAIN WO CON INDICATIONS: headache, elevated BP, vomiting yesterday TECHNIQUE: Noncontrast 4.5 mm thick angled axial sections acquired from the foramen magnum to the vertex, with coronal and sagittal reformats. For radiation dose reduction, the following was used: automated exposure control, adjustment of mA and/or kV according to patient size. COMPARISON: [facility], CT, CT HEAD/BRAIN WO CON, 07/12/2018, 12:21. FINDINGS: Image quality: Excellent. CSF spaces: Basal cisterns are patent. No extra-axial fluid collections. The ventricles are symmetric in size and shape. Brain: No intracranial bleeds or masses. There is cerebral volume loss for age, with resultant ventricular and sulcal prominence. There are periventricular and deep white matter chronic small vessel ischemic changes. There is intracranial internal carotid artery atherosclerosis. Caval septum pellucidum Skull and face: Calvarium and visualized facial bones appear intact, without suspicious lesions. Sinuses: Visualized sinuses and mastoids are clear. IMPRESSION: No acute intracranial process. Dictated by: Malachi David M.D. on 07/22/2018 at 19:12 Approved by: Malachi David M.D. on 07/22/2018 at 19:14
--- NOTE | 2018-07-22 18:44 | ED.GENADULT ---
HPI - General Adult General Chief complaint: Hypertension Stated complaint: elevated Blood Pressure Time Seen by Provider: 07/22/18 18:14 Source: patient and family Mode of arrival: ambulatory Limitations: no limitations History of Present Illness HPI narrative: This is an 82-year-old female who comes to the emergency department with complaint elevated blood pressure. Patient states she has traditionally had blood pressures around the 130s to 140 systolic and 70 range for diastolic. Today she has been 200 and has not been improving. She states she takes metoprolol 25 mg twice daily she has not had any skipped doses. She is due for her next dose at 8:00 p.m.. She was taking Cozaar but this was changed to losartan generic. It is 50 mg once daily. She also takes hydrochlorothiazide. She takes this in the morning. She is post take a statin for dyslipidemia but has not. She has diabetes, hypothyroid GERD and takes gabapentin for neuropathy. Patient has seen for Cardiology in for elevated blood pressures. She has takes an aspirin 81 mg once daily. She has not had any stress test in the past. She states over the last 24 hr she has had some flutters and palpitations in her chest. She had some heartburn sensation yesterday in her chest. She did throw up last night which she attributed to eating a large late meal. She denies any shortness of breath. She has had a little bit of a headache today as well as yesterday and currently now. She has not had any syncope or presyncope. She was clammy this evening which precipitated her coming to the ER. She did have a large bowel movement today but it was soft. She has no numbness or tingling. Related Data Home Medications Medication Instructions Recorded Confirmed levothyroxine [Synthroid] 75 mcg PO MOTUWETHFRSA #0 04/25/16 07/22/18 montelukast [Singulair] 4 mg PO DAILY #0 04/25/16 07/22/18 multivitamin [Multiple Vitamins] 1 tab PO DAILY #0 04/25/16 07/22/18 ranitidine HCl [Zantac] 150 mg PO BID #0 04/25/16 07/22/18 sitagliptin [Januvia] 50 mg PO Q DAY #0 04/25/16 07/22/18 aspirin [Aspirin Childrens] 81 mg PO QPM 07/12/18 07/22/18 hydrochlorothiazide 25 mg PO DAILY 07/12/18 07/22/18 lancets-blood glucose strips 07/12/18 07/12/18 rosuvastatin [Crestor] 5 mg PO DAILY 07/12/18 07/22/18 cetirizine [Zyrtec] 10 mg PO BEDTIME 07/22/18 07/22/18 gabapentin 100 mg PO DAILY 07/22/18 07/22/18 linaclotide [Linzess] 290 mcg PO DAILY 07/22/18 07/22/18 losartan 50 mg PO DAILY 07/22/18 07/22/18 Previous Rx's Medication Instructions Recorded metoprolol tartrate 25 mg PO BID #60 tab 07/15/18 Allergies Allergy/AdvReac Type Severity Reaction Status Date / Time fluconazole [From Diflucan] Allergy Unknown Hives Verified 07/22/18 17:56 meperidine [From DEMEROL] Allergy Unknown Verified 07/22/18 17:49 Sulfa (Sulfonamide Allergy Unknown Verified 07/22/18 17:56 Antibiotics) tetracycline [TETRACYCLINE] Allergy Unknown Verified 07/22/18 17:49 Penicillins Allergy Verified 07/22/18 17:49 Review of Systems Review of Systems All systems reviewed & are unremarkable except as noted in HPI and below Constitutional Denies chills, Denies fatigue, Denies fever(s), Reports headache(s) and Denies malaise Eyes Denies change in vision ENT Ears, Nose, Mouth, and Throat: Denies dizziness and Reports headache(s) Cardiovascular Reports chest pain, Denies chest pain with activity, Reports diaphoresis, Denies syncope, Denies rapid heart rate, Denies pedal edema, Denies irregular heart rhythm, Denies lightheadedness, Denies radiating jaw, neck or arm pain, Reports palpitations, Denies dyspnea, Denies dyspnea on exertion and Denies orthopnea Respiratory Denies change in phlegm color, Denies chest congestion, Denies cough, Denies dyspnea and Denies dyspnea on exertion Gastrointestinal Gastrointestinal: Denies abdominal pain, Denies change in bowel habits, Reports change in stool character (Large stool yesterday that was loose and stringy), Denies diarrhea, Denies nausea and Reports vomiting (Yesterday) Genitourinary Denies urinary frequency and Denies urinary urgency Integumentary/Breasts Reports rash (Rash on legs) Neurologic Denies dizziness, Denies syncope and Reports headache(s) Endocrine Denies fatigue and Reports palpitations PFSH Medical History Diabetes (Chronic) Dyslipidemia (Chronic) GERD (gastroesophageal reflux disease) (Chronic) Hypertension (Chronic) Hypothyroid (Chronic) Thalassemia (Chronic) Pyelonephritis (Resolved) Family History Brother Diabetes mellitus Heart disease Father Prostate cancer Hypertension Mother Cervical cancer Social History household members: spouse and children Smoking Status: Former smoker alcohol intake: former Exam Narrative Exam Narrative: GENERAL: Alert and oriented x three, thin well-appearing elderly female in no acute distress. HEENT: Head normocephalic, atraumatic, EOMI, pupils reactive, face symmetric, moist mucous membranes, no facial droop. No slurred speech NECK: Supple, full range of motion CARDIOVASCULAR: Regular rate and rhythm without murmurs, rubs or gallops. RESPIRATORY: Breath sounds equal bilaterally, no wheezes rales or rhonchi. ABDOMEN: Soft, nontender. Normoactive bowel sounds all 4 quadrants. No guarding or rebound, rigidity, no mass : No CVA tenderness EXTREMITIES: Normal range of motion, no clubbing or edema. Neurovascularly intact NEUROLOGICAL: Cranial nerves II through XII grossly intact. Moving all extremities SKIN: Warm, dry, no petechiae, patient has some slightly raised punctate lesions that appear non erythematous. There is no excoriations. Initial Vital Signs Initial Vital Signs: Vital Signs Temperature 97.5 F L 07/22/18 17:49 Pulse Rate 62 07/22/18 17:49 Respiratory Rate 17 07/22/18 17:49 Blood Pressure 201/93 H 07/22/18 17:49 Pulse Oximetry 96 07/22/18 17:49 Course Orders Ordered: ED Orders 07/22/18 18:00 Complete Blood Count AUTO DIFF Stat Comprehensive Metabolic Panel Stat Iron Profile (w/ % Saturation) Routine Prothrombin Time INR Stat TSH w/ Reflex to FT4 Routine Troponin & CK Cardiac Panel Stat 07/22/18 18:42 CT head/brain wo con Stat XR chest 1V Stat 07/22/18 20:46 Education, smoking cessation ONGOING 07/23/18 05:00 Complete Blood Count AUTO DIFF Routine Troponin I Routine Acetaminophen (Tylenol) 650 mg PO Q6HR PRN PRN Reason: As Needed for Fever/Mild Pain Al Hydrox/Mg Hydrox/Simethicone (Maalox Plus) 30 ml PO Q6HR PRN PRN Reason: Dyspepsia Aspirin (Aspirin Chew) 81 mg PO QPM [facility] Dextrose (D50w) 25 gm IV PRN PRN; Protocol PRN Reason: Hypoglycemia Enoxaparin Sodium (Lovenox) 40 mg SUBCUT DAILY [facility] Gabapentin (Neurontin) 100 mg PO DAILY [facility] Hydrochlorothiazide (Hydrochlorothiazide) 25 mg PO DAILY [facility] Insulin Aspart (Novolog Flexpen) 0 unit SUBCUT ACHS MAREK; Protocol Levothyroxine Sodium (Synthroid) 75 mcg PO MoTuWeThFrSa@0600 [facility] Losartan Potassium (Cozaar) 100 mg PO DAILY [facility] Metoprolol Tartrate (Lopressor) 25 mg PO BID [facility] Nitroglycerin (Nitro-Dur) 0.2 mg TOP 0700 [facility] Ondansetron HCl (Zofran) 4 mg IV Q8HR PRN PRN Reason: Nausea And Vomiting Ranitidine HCl (Zantac) 150 mg PO BID [facility] Rosuvastatin Calcium (Crestor) 5 mg PO DAILY [facility] Sitagliptin Phosphate (Januvia) 50 mg PO DAILY [facility] Discontinued Medications Aspirin (Aspirin) 325 mg PO NOW ONE Stop: 07/22/18 19:43 Last Admin: 07/22/18 20:38 Dose: 325 mg Hydralazine HCl (Apresoline) 10 mg IV NOW ONE Stop: 07/22/18 18:44 Last Admin: 07/22/18 18:53 Dose: 10 mg Sodium Chloride (Normal Saline 0.9%) 1,000 mls @ 1,000 mls/hr IV BOLUS ONE Stop: 07/22/18 19:41 Last Admin: 07/22/18 18:48 Dose: 1,000 mls/hr Losartan Potassium (Cozaar) 50 mg PO DAILY [facility] Metoprolol Tartrate (Lopressor) 25 mg PO NOW ONE Stop: 07/22/18 19:59 Last Admin: 07/22/18 20:28 Dose: Metoprolol Tartrate (Lopressor) 25 mg PO NOW ONE Stop: 07/22/18 20:33 Last Admin: 07/22/18 20:33 Dose: 25 mg Potassium Chloride (Klor-Con M20) 40 meq PO NOW ONE Stop: 07/22/18 19:43 Last Admin: 07/22/18 20:38 Dose: 40 meq Vital Signs - 8 hr 07/22/18 17:49 07/22/18 18:53 07/22/18 20:20 Temperature 97.5 F L Pulse Rate 62 60 76 Respiratory Rate 17 18 Blood Pressure 201/93 H 201/88 H Blood Pressure [Left Arm] 171/77 H Pulse Oximetry 96 100 07/22/18 20:36 Temperature Pulse Rate 80 Respiratory Rate Blood Pressure 171/77 H Blood Pressure [Left Arm] Pulse Oximetry Medical Decision Making Lab Data Lab results reviewed: Yes I reviewed the patient's lab results. Result diagrams: 07/22/18 18:00 07/22/18 18:00 Lab Results 07/22/18 07/22/18 07/22/18 Range/Units 18:00 18:00 18:00 WBC 6.4 (4.5-11.0) X10^3/uL RBC 4.49 (4.0-5.2) X10^6/uL Hgb 9.5 L (12.0-16.0) g/dL Hct 29.6 L (36-46) % MCV 65.8 L (80-100) fL MCH 21.0 L (26-34) PG MCHC 32.0 (30-36) % RDW 15.9 H (11.6-14.8) % Plt Count 220 (150-400) X10^3/uL Neut % (Auto) 63.0 (50-75) % Lymph % (Auto) 20.7 L (25-40) % [place] % (Auto) 11.3 (3-14) % Eos % (Auto) 4.4 H (2-4) % Baso % (Auto) 0.6 (0-2) % Neut # (Auto) 4000 (7043-3825) /uL RBC Morphology See below Hypochromasia 1+ H Microcytosis 2+ H PT 11.7 (10.1-12.7) SECONDS INR 1.1 (0.9-1.3) Sodium 138 (137-145) mmol/L Potassium 3.3 L (3.4-5.1) mmol/L Chloride 98 (98-107) mmol/L Carbon Dioxide 27 (22-32) mmol/L BUN 26 H (7-17) mg/dL Creatinine 1.10 H (0.52-1.04) mg/dL Estimated GFR 47.6 L (>60) mL/min BUN/Creatinine Ratio 23.6 H (6-22) Glucose 96 (80-110) mg/dL Calcium 9.8 (8.4-10.2) mg/dL Total Bilirubin 0.4 (0.2-1.3) mg/dL AST 30 (14-36) IU/L ALT 24 (9-52) IU/L Alkaline Phosphatase 61 (38-126) U/L Total Creatine Kinase 64 (30-135) U/L CK-MB (CK-2) TNP CK-MB (CK-2) Rel Index TNP Troponin I < 0.012 (0.01-0.034) ng/mL Total Protein 8.3 H (6.3-8.2) g/dL Albumin 4.5 (3.5-5.0) g/dL Globulin 3.8 (1.7-4.1) g/dL Albumin/Globulin Ratio 1.2 (1.0-2.8) Urine Dip Bedside Urine Glucose Negative Bedside Urine Bilirubin - Negative Bedside Urine Ketone - Negative Urine Specific Lawson 1.010 Bedside Urine Occult Blood - Negative Bedside Urine pH 6.5 Bedside Urine Protein - Negative Bedside Urine Urobilinogen - Negative Bedside Urine Nitrite - Negative Bedside Urine Leukocytes - Negative Esterase Point of care testing: Urine Dip Bedside Urine Glucose Negative Bedside Urine Bilirubin - Negative Bedside Urine Ketone - Negative Urine Specific Lawson 1.010 Bedside Urine Occult Blood - Negative Bedside Urine pH 6.5 Bedside Urine Protein - Negative Bedside Urine Urobilinogen - Negative Bedside Urine Nitrite - Negative Bedside Urine Leukocytes - Negative Esterase Imaging Data CT scan - head: Radiologist's impression: [address] [address] [address] Scan Report Signed Patient: So Stinson [facility]#: [id number] : 5Acct:[id number] Age/Sex: 82 / FDate of Service: 07/22/18 Loc: ED Accession Number: [id number] Procedure: CT head/brain wo con Ordering Provider: Jolie Robles D.O. PROCEDURE: CT HEAD/BRAIN WO CON INDICATIONS: headache, elevated BP, vomiting yesterday TECHNIQUE: Noncontrast 4.5 mm thick angled axial sections acquired from the foramen magnum to the vertex, with coronal and sagittal reformats. For radiation dose reduction, the following was used: automated exposure control, adjustment of mA and/or kV according to patient size. COMPARISON: [facility], CT, CT HEAD/BRAIN WO CON, 07/12/2018, 12:21. FINDINGS: Image quality: Excellent. CSF spaces: Basal cisterns are patent. No extra-axial fluid collections. The ventricles are symmetric in size and shape. Brain: No intracranial bleeds or masses. There is cerebral volume loss for age, with resultant ventricular and sulcal prominence. There are periventricular and deep white matter chronic small vessel ischemic changes. There is intracranial internal carotid artery atherosclerosis. Caval septum pellucidum Skull and face: Calvarium and visualized facial bones appear intact, without suspicious lesions. Sinuses: Visualized sinuses and mastoids are clear. IMPRESSION: No acute intracranial process. Dictated by: Malachi David M.D. on 07/22/2018 at 19:12 Approved by: Malachi David M.D. on 07/22/2018 at 19:14 Chest x-ray: Radiologist's impression: [place] [address] XRay Report Signed Patient: So Stinson [facility]#: [id number] : 5Acct:[id number] Age/Sex: 82 / FDate of Service: 07/22/18 Loc: ED Accession Number: [id number] Procedure: XR chest 1V Ordering Provider: Jolie Robles D.O. PROCEDURE: XR CHEST 1V INDICATIONS: hypertension TECHNIQUE: One view of the chest was acquired. COMPARISON: [facility], CR, XR CHEST 1V, 07/12/2018, 11:52. FINDINGS: Surgical changes and devices: None. Lungs and pleura: No pleural effusions or pneumothorax. Lungs are clear. Mediastinum: Mediastinal contours appear normal. Heart size is normal. Bones and chest wall: No suspicious bony lesions. Overlying soft tissues appear unremarkable. IMPRESSION: No acute disease. Dictated by: Malachi David M.D. on 07/22/2018 at 19:33 Approved by: Malachi David M.D. on 07/22/2018 at 19:34 ECG Data Attestation: I personally reviewed and interpreted this ECG as follows: Prior ECG tracings: available for review Interpretation: Patient has sinus bradycardia with a rate of 54 P are 195 QRS 84 and a QTC of 372. Nonspecific T-wave changes. Patient has a prior EKG from today from the clinic which appears similar. Patient has prior EKGs from 07/12/2018 as well as 07/08/2018 which appears similar except for leads V through 6 which appear flattened today. EKG 2. Shows a sinus rhythm. Patient has some ST depression in the 3 through V6. This appears more marked than on the prior EKG from this evening at 5:52 p.m.. Rate is 67, pr is 188 QRS is 84 and QTC is 453. MDM Narrative Medical decision making narrative: Patient did have some vomiting yesterday she has had a headache although she does not describe a severe so head CT was ordered with her elevated pressures. As well as cardiac enzymes, urine to check for protein spilling and additional lab work. Patient's EKG does have some nonspecific changes from prior. Patient's troponin is negative, head CT does not show any acute changes. Lab work does not show any major changes have but when patient was walking back from the bathroom she felt a little bit of chest pressure again. Um repeat EKG continues to show some ST depression seems a little bit more obvious than on the 1st EKG. Patient's blood pressure has improved with her continued symptoms feel patient might be improved with admission for further workup. Spoke with Dr. Rodas discussed the patient had some chest pain here in the department she has some new EKG changes. Her hypertension has improved to 180 systolic after hydralazine and her metoprolol normal evening dose of 50 mg was started. Plan for observation with telemetry. The patient's troponin was negative, patient's head CT, chest x-ray and other labs appears stable discussed she appears to have some chronic kidney disease, anemia. Discharge Plan Departure Patient Disposition: Admitted as Observation Clinical Impression: Hypertension, Chest pain Discharge Date/Time: 07/22/18 21:00 Interventions: ED Discharge Assessment Last Done: 07/22/18 20:16 Admit Date/Time: 07/22/18 20:08 Admit Provider: Kar Rodas
[2018-07-22] MEDS: SODIUM CHLORIDE 0.9% 1,000 ML 1000 ML IV (18:48)
--- NOTE | 2018-07-22 18:50 | PC.NURSE ---
pt c/o headache started yesterday, had one episode of vomiting.
[2018-07-22 18:52] LABS: Add Manual Diff / Slide Review NO; Basophils Percent Auto 0.6 % (0-2); Eosinophils Percent Auto 4.4 % (2-4); Hematocrit 29.6 % (36-46); Hemoglobin 9.5 g/dL (12.0-16.0); Lymphocytes Percent Auto 20.7 % (25-40); Mean Corpuscular Volume 65.8 fL (80-100); Monocytes Percent Auto 11.3 % (3-14); Neutrophils Absolute Auto 4000 /uL (3000-5900); Platelet Count 220 X10^3/uL (150-400); Red Blood Cell Count 4.49 X10^6/uL (4.0-5.2); Red Cell Distribution Width 15.9 % (11.6-14.8); White Blood Cell Count 6.4 X10^3/uL (4.5-11.0)
[2018-07-22] MEDS: HYDRALAZINE 20 MG/ML VIAL 10 MG IV (18:53)
[2018-07-22 18:55] LABS: INR 1.1 (0.9-1.3); Prothrombin Time 11.7 SECONDS (10.1-12.7)
--- NOTE | 2018-07-22 18:56 | ED_ITS ---
HPI - General Adult General Chief complaint: Hypertension Stated complaint: elevated Blood Pressure Time Seen by Provider: 07/22/18 18:14 Source: patient and family Mode of arrival: ambulatory Limitations: no limitations History of Present Illness HPI narrative: This is an 82-year-old female who comes to the emergency department with complaint elevated blood pressure. Patient states she has traditionally had blood pressures around the 130s to 140 systolic and 70 range for diastolic. Today she has been 200 and has not been improving. She states she takes metoprolol 25 mg twice daily she has not had any skipped doses. She is due for her next dose at 8:00 p.m.. She was taking Cozaar but this was changed to losartan generic. It is 50 mg once daily. She also takes hydrochlorothiazide. She takes this in the morning. She is post take a statin for dyslipidemia but has not. She has diabetes, hypothyroid GERD and takes gabapentin for neuropathy. Patient has seen for Cardiology in for elevated blood pressures. She has takes an aspirin 81 mg once daily. She has not had any stress test in the past. She states over the last 24 hr she has had some flutters and palpitations in her chest. She had some heartburn sensation yesterday in her chest. She did throw up last night which she attributed to eating a large late meal. She denies any shortness of breath. She has had a little bit of a headache today as well as yesterday and currently now. She has not had any syncope or presyncope. She was clammy this evening which precipitated her coming to the ER. She did have a large bowel movement today but it was soft. She has no numbness or tingling. Related Data Home Medications Medication Instructions Recorded Confirmed levothyroxine [Synthroid] 75 mcg PO MOTUWETHFRSA #0 04/25/16 07/22/18 montelukast [Singulair] 4 mg PO DAILY #0 04/25/16 07/22/18 multivitamin [Multiple Vitamins] 1 tab PO DAILY #0 04/25/16 07/22/18 ranitidine HCl [Zantac] 150 mg PO BID #0 04/25/16 07/22/18 sitagliptin [Januvia] 50 mg PO Q DAY #0 04/25/16 07/22/18 aspirin [Aspirin Childrens] 81 mg PO QPM 07/12/18 07/22/18 hydrochlorothiazide 25 mg PO DAILY 07/12/18 07/22/18 lancets-blood glucose strips 07/12/18 07/12/18 rosuvastatin [Crestor] 5 mg PO DAILY 07/12/18 07/22/18 cetirizine [Zyrtec] 10 mg PO BEDTIME 07/22/18 07/22/18 gabapentin 100 mg PO DAILY 07/22/18 07/22/18 linaclotide [Linzess] 290 mcg PO DAILY 07/22/18 07/22/18 losartan 50 mg PO DAILY 07/22/18 07/22/18 Previous Rx's Medication Instructions Recorded metoprolol tartrate 25 mg PO BID #60 tab 07/15/18 Allergies Allergy/AdvReac Type Severity Reaction Status Date / Time fluconazole [From Diflucan] Allergy Unknown Hives Verified 07/22/18 17:56 meperidine [From DEMEROL] Allergy Unknown Verified 07/22/18 17:49 Sulfa (Sulfonamide Allergy Unknown Verified 07/22/18 17:56 Antibiotics) tetracycline [TETRACYCLINE] Allergy Unknown Verified 07/22/18 17:49 Penicillins Allergy Verified 07/22/18 17:49 Review of Systems Review of Systems All systems reviewed & are unremarkable except as noted in HPI and below Constitutional Denies chills, Denies fatigue, Denies fever(s), Reports headache(s) and Denies malaise Eyes Denies change in vision ENT Ears, Nose, Mouth, and Throat: Denies dizziness and Reports headache(s) Cardiovascular Reports chest pain, Denies chest pain with activity, Reports diaphoresis, Denies syncope, Denies rapid heart rate, Denies pedal edema, Denies irregular heart rhythm, Denies lightheadedness, Denies radiating jaw, neck or arm pain, Reports palpitations, Denies dyspnea, Denies dyspnea on exertion and Denies orthopnea Respiratory Denies change in phlegm color, Denies chest congestion, Denies cough, Denies dyspnea and Denies dyspnea on exertion Gastrointestinal Gastrointestinal: Denies abdominal pain, Denies change in bowel habits, Reports change in stool character (Large stool yesterday that was loose and stringy), Denies diarrhea, Denies nausea and Reports vomiting (Yesterday) Genitourinary Denies urinary frequency and Denies urinary urgency Integumentary/Breasts Reports rash (Rash on legs) Neurologic Denies dizziness, Denies syncope and Reports headache(s) Endocrine Denies fatigue and Reports palpitations PFSH Medical History Diabetes (Chronic) Dyslipidemia (Chronic) GERD (gastroesophageal reflux disease) (Chronic) Hypertension (Chronic) Hypothyroid (Chronic) Thalassemia (Chronic) Pyelonephritis (Resolved) Family History Brother Diabetes mellitus Heart disease Father Prostate cancer Hypertension Mother Cervical cancer Social History household members: spouse and children Smoking Status: Former smoker alcohol intake: former Exam Narrative Exam Narrative: GENERAL: Alert and oriented x three, thin well-appearing elderly female in no acute distress. HEENT: Head normocephalic, atraumatic, EOMI, pupils reactive, face symmetric, moist mucous membranes, no facial droop. No slurred speech NECK: Supple, full range of motion CARDIOVASCULAR: Regular rate and rhythm without murmurs, rubs or gallops. RESPIRATORY: Breath sounds equal bilaterally, no wheezes rales or rhonchi. ABDOMEN: Soft, nontender. Normoactive bowel sounds all 4 quadrants. No guarding or rebound, rigidity, no mass : No CVA tenderness EXTREMITIES: Normal range of motion, no clubbing or edema. Neurovascularly intact NEUROLOGICAL: Cranial nerves II through XII grossly intact. Moving all extremities SKIN: Warm, dry, no petechiae, patient has some slightly raised punctate lesions that appear non erythematous. There is no excoriations. Initial Vital Signs Initial Vital Signs: Vital Signs Temperature 97.5 F L 07/22/18 17:49 Pulse Rate 62 07/22/18 17:49 Respiratory Rate 17 07/22/18 17:49 Blood Pressure 201/93 H 07/22/18 17:49 Pulse Oximetry 96 07/22/18 17:49 Course Orders Ordered: ED Orders 07/22/18 18:00 Complete Blood Count AUTO DIFF Stat Comprehensive Metabolic Panel Stat Iron Profile (w/ % Saturation) Routine Prothrombin Time INR Stat TSH w/ Reflex to FT4 Routine Troponin & CK Cardiac Panel Stat 07/22/18 18:42 CT head/brain wo con Stat XR chest 1V Stat 07/22/18 20:46 Education, smoking cessation ONGOING 07/23/18 05:00 Complete Blood Count AUTO DIFF Routine Troponin I Routine Acetaminophen (Tylenol) 650 mg PO Q6HR PRN PRN Reason: As Needed for Fever/Mild Pain Al Hydrox/Mg Hydrox/Simethicone (Maalox Plus) 30 ml PO Q6HR PRN PRN Reason: Dyspepsia Aspirin (Aspirin Chew) 81 mg PO QPM [facility] Dextrose (D50w) 25 gm IV PRN PRN; Protocol PRN Reason: Hypoglycemia Enoxaparin Sodium (Lovenox) 40 mg SUBCUT DAILY [facility] Gabapentin (Neurontin) 100 mg PO DAILY [facility] Hydrochlorothiazide (Hydrochlorothiazide) 25 mg PO DAILY [facility] Insulin Aspart (Novolog Flexpen) 0 unit SUBCUT ACHS MAREK; Protocol Levothyroxine Sodium (Synthroid) 75 mcg PO MoTuWeThFrSa@0600 [facility] Losartan Potassium (Cozaar) 100 mg PO DAILY [facility] Metoprolol Tartrate (Lopressor) 25 mg PO BID [facility] Nitroglycerin (Nitro-Dur) 0.2 mg TOP 0700 [facility] Ondansetron HCl (Zofran) 4 mg IV Q8HR PRN PRN Reason: Nausea And Vomiting Ranitidine HCl (Zantac) 150 mg PO BID [facility] Rosuvastatin Calcium (Crestor) 5 mg PO DAILY [facility] Sitagliptin Phosphate (Januvia) 50 mg PO DAILY [facility] Discontinued Medications Aspirin (Aspirin) 325 mg PO NOW ONE Stop: 07/22/18 19:43 Last Admin: 07/22/18 20:38 Dose: 325 mg Hydralazine HCl (Apresoline) 10 mg IV NOW ONE Stop: 07/22/18 18:44 Last Admin: 07/22/18 18:53 Dose: 10 mg Sodium Chloride (Normal Saline 0.9%) 1,000 mls @ 1,000 mls/hr IV BOLUS ONE Stop: 07/22/18 19:41 Last Admin: 07/22/18 18:48 Dose: 1,000 mls/hr Losartan Potassium (Cozaar) 50 mg PO DAILY [facility] Metoprolol Tartrate (Lopressor) 25 mg PO NOW ONE Stop: 07/22/18 19:59 Last Admin: 07/22/18 20:28 Dose: Metoprolol Tartrate (Lopressor) 25 mg PO NOW ONE Stop: 07/22/18 20:33 Last Admin: 07/22/18 20:33 Dose: 25 mg Potassium Chloride (Klor-Con M20) 40 meq PO NOW ONE Stop: 07/22/18 19:43 Last Admin: 07/22/18 20:38 Dose: 40 meq Vital Signs - 8 hr 07/22/18 17:49 07/22/18 18:53 07/22/18 20:20 Temperature 97.5 F L Pulse Rate 62 60 76 Respiratory Rate 17 18 Blood Pressure 201/93 H 201/88 H Blood Pressure [Left Arm] 171/77 H Pulse Oximetry 96 100 07/22/18 20:36 Temperature Pulse Rate 80 Respiratory Rate Blood Pressure 171/77 H Blood Pressure [Left Arm] Pulse Oximetry Medical Decision Making Lab Data Lab results reviewed: Yes I reviewed the patient's lab results. Result diagrams: 07/22/18 18:00 07/22/18 18:00 Lab Results 07/22/18 07/22/18 07/22/18 Range/Units 18:00 18:00 18:00 WBC 6.4 (4.5-11.0) X10^3/uL RBC 4.49 (4.0-5.2) X10^6/uL Hgb 9.5 L (12.0-16.0) g/dL Hct 29.6 L (36-46) % MCV 65.8 L (80-100) fL MCH 21.0 L (26-34) PG MCHC 32.0 (30-36) % RDW 15.9 H (11.6-14.8) % Plt Count 220 (150-400) X10^3/uL Neut % (Auto) 63.0 (50-75) % Lymph % (Auto) 20.7 L (25-40) % Butler % (Auto) 11.3 (3-14) % Eos % (Auto) 4.4 H (2-4) % Baso % (Auto) 0.6 (0-2) % Neut # (Auto) 4000 (3819-6284) /uL RBC Morphology See below Hypochromasia 1+ H Microcytosis 2+ H PT 11.7 (10.1-12.7) SECONDS INR 1.1 (0.9-1.3) Sodium 138 (137-145) mmol/L Potassium 3.3 L (3.4-5.1) mmol/L Chloride 98 (98-107) mmol/L Carbon Dioxide 27 (22-32) mmol/L BUN 26 H (7-17) mg/dL Creatinine 1.10 H (0.52-1.04) mg/dL Estimated GFR 47.6 L (>60) mL/min BUN/Creatinine Ratio 23.6 H (6-22) Glucose 96 (80-110) mg/dL Calcium 9.8 (8.4-10.2) mg/dL Total Bilirubin 0.4 (0.2-1.3) mg/dL AST 30 (14-36) IU/L ALT 24 (9-52) IU/L Alkaline Phosphatase 61 (38-126) U/L Total Creatine Kinase 64 (30-135) U/L CK-MB (CK-2) TNP CK-MB (CK-2) Rel Index TNP Troponin I < 0.012 (0.01-0.034) ng/mL Total Protein 8.3 H (6.3-8.2) g/dL Albumin 4.5 (3.5-5.0) g/dL Globulin 3.8 (1.7-4.1) g/dL Albumin/Globulin Ratio 1.2 (1.0-2.8) Urine Dip Bedside Urine Glucose Negative Bedside Urine Bilirubin - Negative Bedside Urine Ketone - Negative Urine Specific Weston 1.010 Bedside Urine Occult Blood - Negative Bedside Urine pH 6.5 Bedside Urine Protein - Negative Bedside Urine Urobilinogen - Negative Bedside Urine Nitrite - Negative Bedside Urine Leukocytes - Negative Esterase Point of care testing: Urine Dip Bedside Urine Glucose Negative Bedside Urine Bilirubin - Negative Bedside Urine Ketone - Negative Urine Specific Weston 1.010 Bedside Urine Occult Blood - Negative Bedside Urine pH 6.5 Bedside Urine Protein - Negative Bedside Urine Urobilinogen - Negative Bedside Urine Nitrite - Negative Bedside Urine Leukocytes - Negative Esterase Imaging Data CT scan - head: Radiologist's impression: [address] [address] [address] Scan Report Signed Patient: So Stinson [facility]#: [id number] : 5Acct:[id number] Age/Sex: 82 / FDate of Service: 07/22/18 Loc: ED Accession Number: [id number] Procedure: CT head/brain wo con Ordering Provider: Jolie Robles D.O. PROCEDURE: CT HEAD/BRAIN WO CON INDICATIONS: headache, elevated BP, vomiting yesterday TECHNIQUE: Noncontrast 4.5 mm thick angled axial sections acquired from the foramen magnum to the vertex, with coronal and sagittal reformats. For radiation dose reduction, the following was used: automated exposure control, adjustment of mA and/or kV according to patient size. COMPARISON: [facility], CT, CT HEAD/BRAIN WO CON, 07/12/2018, 12:21. FINDINGS: Image quality: Excellent. CSF spaces: Basal cisterns are patent. No extra-axial fluid collections. The ventricles are symmetric in size and shape. Brain: No intracranial bleeds or masses. There is cerebral volume loss for age , with resultant ventricular and sulcal prominence. There are periventricular and deep white matter chronic small vessel ischemic changes. There is intracranial internal carotid artery atherosclerosis. Caval septum pellucidum Skull and face: Calvarium and visualized facial bones appear intact, without suspicious lesions. Sinuses: Visualized sinuses and mastoids are clear. IMPRESSION: No acute intracranial process. Dictated by: Malachi Davdi M.D. on 07/22/2018 at 19:12 Approved by: Malachi David M.D. on 07/22/2018 at 19:14 Chest x-ray: Radiologist's impression: [place] [address] XRay Report Signed Patient: So Stinson [facility]#: [id number] : 5Acct:[id number] Age/Sex: 82 / FDate of Service: 07/22/18 Loc: ED Accession Number: [id number] Procedure: XR chest 1V Ordering Provider: Jolie Robles D.O. PROCEDURE: XR CHEST 1V INDICATIONS: hypertension TECHNIQUE: One view of the chest was acquired. COMPARISON: [facility], CR, XR CHEST 1V, 07/12/2018, 11:52. FINDINGS: Surgical changes and devices: None. Lungs and pleura: No pleural effusions or pneumothorax. Lungs are clear. Mediastinum: Mediastinal contours appear normal. Heart size is normal. Bones and chest wall: No suspicious bony lesions. Overlying soft tissues appear unremarkable. IMPRESSION: No acute disease. Dictated by: Malachi David M.D. on 07/22/2018 at 19:33 Approved by: Malachi David M.D. on 07/22/2018 at 19:34 ECG Data Attestation: I personally reviewed and interpreted this ECG as follows: Prior ECG tracings: available for review Interpretation: Patient has sinus bradycardia with a rate of 54 P are 195 QRS 84 and a QTC of 372. Nonspecific T-wave changes. Patient has a prior EKG from today from the clinic which appears similar. Patient has prior EKGs from 2017 as well as 07/08/2018 which appears similar except for leads V through 6 which appear flattened today. EKG 2. Shows a sinus rhythm. Patient has some ST depression in the 3 through V6. This appears more marked than on the prior EKG from this evening at 5:52 p.m.. Rate is 67, pr is 188 QRS is 84 and QTC is 453. MDM Narrative Medical decision making narrative: Patient did have some vomiting yesterday she has had a headache although she does not describe a severe so head CT was ordered with her elevated pressures. As well as cardiac enzymes, urine to check for protein spilling and additional lab work. Patient's EKG does have some nonspecific changes from prior. Patient's troponin is negative, head CT does not show any acute changes. Lab work does not show any major changes have but when patient was walking back from the bathroom she felt a little bit of chest pressure again. Um repeat EKG continues to show some ST depression seems a little bit more obvious than on the 1st EKG. Patient's blood pressure has improved with her continued symptoms feel patient might be improved with admission for further workup. Spoke with Dr. Rodas discussed the patient had some chest pain here in the department she has some new EKG changes. Her hypertension has improved to 180 systolic after hydralazine and her metoprolol normal evening dose of 50 mg was started. Plan for observation with telemetry. The patient's troponin was negative, patient's head CT, chest x-ray and other labs appears stable discussed she appears to have some chronic kidney disease, anemia. Discharge Plan Departure Patient Disposition: Admitted as Observation Clinical Impression: Hypertension, Chest pain Discharge Date/Time: 07/22/18 21:00 Interventions: ED Discharge Assessment Last Done: 07/22/18 20:16 Admit Date/Time: 07/22/18 20:08 Admit Provider: Kar Rodas
[2018-07-22 18:58] LABS: Alanine Aminotransferase 24 IU/L (9-52); Albumin 4.5 g/dL (3.5-5.0); Albumin Globulin Ratio 1.2 (1.0-2.8); Alkaline Phosphatase 61 U/L (38-126); Aspartate Aminotransferase 30 IU/L (14-36); BUN Creatinine Ratio 23.6 (6-22); Bilirubin Total 0.4 mg/dL (0.2-1.3); Blood Urea Nitrogen 26 mg/dL (7-17); Calcium 9.8 mg/dL (8.4-10.2); Carbon Dioxide 27 mmol/L (22-32); Chloride 98 mmol/L (98-107); Creatine Kinase 64 U/L (30-135); Estimated Glomerular Filt Rate 47.6 mL/min (>60); Globulin 3.8 g/dL (1.7-4.1); Glucose 96 mg/dL (80-110); HEMOLYSIS 25 (0-50); Potassium 3.3 mmol/L (3.4-5.1); Sodium 138 mmol/L (137-145); Total Protein 8.3 g/dL (6.3-8.2)
[2018-07-22 19:09] LABS: Hypochromasia 1+; Microcytosis 2+
[2018-07-22 19:24] LABS: Troponin I < 0.012 ng/mL (0.01-0.034)
--- NOTE | 2018-07-22 19:33 | PC.NURSE ---
She developed c/p ambulating to br.DR rai notified and 12 lead ordered.
[2018-07-22] MEDS: METOPROLOL 12.5 MG TABLET 25 MG PO (20:33)
[2018-07-22] MEDS: ASPIRIN 325 MG TABLET PO (20:38)
[2018-07-22] MEDS: POTASSIUM CHLORIDE 20 MEQ TAB 40 MEQ PO (20:38)
--- NOTE | 2018-07-22 21:12 | PM.HP.1 ---
History of Present Illness Date Patient Seen: 07/22/18 Time Patient Seen: 21:13 Chief complaint: elevated Blood Pressure Narrative: 82-year-old female presents with the elevated blood pressure and some chest pressure. She was seen by her primary care physician earlier today who noted a systolic pressure of over 200 sent to the ER here in the ER she was having some chest pressure and then developed some ST depression in her anterolateral leads on her EKG. No prior history of coronary disease. She was in the hospital just recently with pyelonephritis discharged home on the with Levaquin. At that time they also decreased the metoprolol from 50 b.i.d. to 5025 b.i.d. because of bradycardia and increased her losartan up to 100 mg per day. Patient History Medical History Diabetes (Chronic) Dyslipidemia (Chronic) GERD (gastroesophageal reflux disease) (Chronic) Hypertension (Chronic) Hypothyroid (Chronic) Thalassemia (Chronic) Pyelonephritis (Resolved) Family & Social History Social History: household members spouse,children Tobacco & Substance use: Smoking Status Former smoker alcohol intake former alcohol intake frequency 0-2 drinks per day Substance Use Type does not use Meds Home Medications Medication Instructions Recorded Confirmed Type levothyroxine [Synthroid] 75 mcg PO MOTUWETHFRSA #0 04/25/16 07/22/18 History montelukast [Singulair] 4 mg PO DAILY #0 04/25/16 07/22/18 History multivitamin [Multiple Vitamins] 1 tab PO DAILY #0 04/25/16 07/22/18 History ranitidine HCl [Zantac] 150 mg PO BID #0 04/25/16 07/22/18 History sitagliptin [Januvia] 50 mg PO Q DAY #0 04/25/16 07/22/18 History aspirin [Aspirin Childrens] 81 mg PO QPM 07/12/18 07/22/18 History hydrochlorothiazide 25 mg PO DAILY 07/12/18 07/22/18 History lancets-blood glucose strips 07/12/18 07/12/18 History rosuvastatin [Crestor] 5 mg PO DAILY 07/12/18 07/22/18 History metoprolol tartrate 25 mg PO BID #60 tab 07/15/18 07/22/18 Rx cetirizine [Zyrtec] 10 mg PO BEDTIME 07/22/18 07/22/18 History gabapentin 100 mg PO DAILY 07/22/18 07/22/18 History linaclotide [Linzess] 290 mcg PO DAILY 07/22/18 07/22/18 History losartan 50 mg PO DAILY 07/22/18 07/22/18 History Allergies Allergy/AdvReac Type Severity Reaction Status Date / Time fluconazole [From Diflucan] Allergy Unknown Hives Verified 07/22/18 17:56 meperidine [From DEMEROL] Allergy Unknown Verified 07/22/18 17:49 Sulfa (Sulfonamide Allergy Unknown Verified 07/22/18 17:56 Antibiotics) tetracycline [TETRACYCLINE] Allergy Unknown Verified 07/22/18 17:49 Penicillins Allergy Verified 07/22/18 17:49 Review of Systems Constitutional Constitutional: Reports system reviewed and no additional complaints, except as documented Eyes Eyes: Reports system reviewed; no additional complaints, except as documented ENT Ears, Nose, Mouth, and Throat: Yes system reviewed; no additional complaints, except as documented Cardiovascular Cardiovascular: Reports chest pain and Reports chest pain with activity Respiratory Respiratory: Denies chest congestion and Denies cough Gastrointestinal Gastrointestinal: Reports system reviewed and no additional complaints, except as documented Genitourinary Genitourinary: Reports system reviewed and no additional complaints, except as documented Musculoskeletal Musculoskeletal: Reports system reviewed; no additional complaints, except as documented Integumentary/Breasts Skin/Breast: Reports system reviewed and no additional complaints, except as documented Neurologic Neurologic: Reports system reviewed and no additional complaints, except as documented Psychiatric Psychiatric: Reports system reviewed and no additional complaints, except as documented Endocrine Endocrine: Reports system reviewed and no additional complaints, except as documented Hematologic/Lymphatic Hematologic/Lymphatic: Reports system reviewed and no additional complaints, except as documented Allergic/Immunologic Allergic/Immunologic: Reports system reviewed and no additional complaints, except as documented Exam Vital Signs (past 8 hours): - 07/22/18 17:49 07/22/18 18:53 07/22/18 20:20 Temperature 97.5 F L Pulse Rate 62 60 76 Respiratory Rate 17 18 Blood Pressure 201/93 H 201/88 H Blood Pressure [Left Arm] 171/77 H Pulse Oximetry 96 100 07/22/18 20:36 Temperature Pulse Rate 80 Respiratory Rate Blood Pressure 171/77 H Blood Pressure [Left Arm] Pulse Oximetry Oxygen Delivery Method Room Air Narrative Exam Narrative: Pleasant elderly black female no acute distress HEENT exam unremarkable No JVD Heart regular rhythm Lungs Clear to auscultation Abdomen soft nontender Extremities no significant edema Skin warm and dry Neuro exam awake alert no focal deficits and speech normal Objective Labs Result Diagrams: 07/22/18 18:00 07/22/18 18:00 Labs: Laboratory Results - last 24 hr 07/22/18 07/22/18 07/22/18 18:00 18:00 18:00 WBC 6.4 RBC 4.49 Hgb 9.5 L Hct 29.6 L MCV 65.8 L MCH 21.0 L MCHC 32.0 RDW 15.9 H Plt Count 220 Neut % (Auto) 63.0 Lymph % (Auto) 20.7 L Ceiba % (Auto) 11.3 Eos % (Auto) 4.4 H Baso % (Auto) 0.6 Neut # (Auto) 4000 RBC Morphology See below Hypochromasia 1+ H Microcytosis 2+ H PT 11.7 INR 1.1 Sodium 138 Potassium 3.3 L Chloride 98 Carbon Dioxide 27 BUN 26 H Creatinine 1.10 H Estimated GFR 47.6 L BUN/Creatinine Ratio 23.6 H Glucose 96 Calcium 9.8 Total Bilirubin 0.4 AST 30 ALT 24 Alkaline Phosphatase 61 Total Creatine Kinase 64 CK-MB (CK-2) TNP CK-MB (CK-2) Rel Index TNP Troponin I < 0.012 Total Protein 8.3 H Albumin 4.5 Globulin 3.8 Albumin/Globulin Ratio 1.2 Assessment & Plan Plan: Assessment/Plan Narrative: One. Chest pain with some EKG changes got some ST depression in the anterolateral leads. Patient will be placed on an observation status with the serial troponins and place him on nitroglycerin continue beta-serg aspirin increase the losartan. Telemetry continuous cardiac 2. Hypertension plan to increase the losartan back to 100 mg per day continue the metoprolol at the current dose and watch the blood pressure carefully 3. Anemia this is chronic she has thalassemia does not seem to be any worse than previous. 4. Hypothyroid plan to continue current medications check levels 5. Code status DNR is what she wishes to aspirate her last admission 6. Chronic kidney disease seems to be stable 7. Pyelonephritis recently diagnosed and treated now off antibiotics
[2018-07-22 21:13] LABS: HEMOLYSIS < 15 (0-50); Iron 95 ug/dL (37-170)
[2018-07-22 21:24] LABS: Percent Iron Saturation 25 % (15-50); Total Iron Binding Capacity 379 ug/dL (265-497); Transferrin 316 mg/dL (206-381)
[2018-07-22 21:45] LABS: TSH w/ Reflex to FT4 1.12 uIU/mL (0.47-4.68)
[2018-07-22] MEDS: LOSARTAN 50 MG TABLET 100 MG PO (22:17)
[2018-07-22] MEDS: METOPROLOL IR 25 MG TABLET PO (22:17)
[2018-07-22] MEDS: NITROGLYCERIN TOP (22:17)
--- NOTE | 2018-07-22 22:54 | PC.NURSE ---
patient alert and oriented, RA 98%. BP 186/90 during initial assessment, pulse 63. Continuous oximeter active. CMS intact, patient demonstrates ability to ambulate to BR 1pa without walker. Patient verbalizes that she will call for assistance to get oob. Tele applied. Patient denies chest pain but states she does feel a heaviness in her chest. Medications administered as ordered. BA active. will continue to monitor.
[2018-07-23] VITALS (7 sets, daily range): BP systolic 136–160; BP diastolic 74–91; PULSE 55–64; RESP 16–18; TEMP 36.6–36.9; O2SAT 95–100
--- NOTE | 2018-07-23 00:32 | PC.NURSE ---
Addendum entered by Leela Bonilla R.N. 07/23/18 05:58: Slept most of night. Calls appropriately when needing to go to the bathroom. States headache has resolved. Original Note: Addendum entered by Leela Bonilla R.N. 07/23/18 03:49: Complains of headache so medicated with Tylenol. BP more elevated at this time at 160/76 Original Note: Addendum entered by Leela Bonilla R.N. 07/23/18 01:06: Correction to previous charting. BP was 144/79 Original Note: Patient is alert and oriented. Breath sounds CTA with RA sat of 99%. HRR. BP has been elevated but now with SBP of 149. Telemetry reading was SR. Denies chest pain but states she does feel a tightness that was present earlier and is unchanged. Denies nausea. BT present and abdomen is soft. States she has urinary frequency but denies dysuria, urgency or incontinence. Independent with bed mobility. Has fallen recently so bed alarm is activated and patient reminded to call for staff assist when needing to get out of bed. Reportedly when up requires 1 assist but does not use assistive device. Patient states she is weak in lower extremities and unsteady on feet. Denies any pain.
[2018-07-23] MEDS: ACETAMINOPHEN 325 MG TABLET 650 MG PO ×2 (03:13→13:23)
[2018-07-23] MEDS: LEVOTHYROXINE 75 MCG TABLET PO (05:53)
[2018-07-23 05:59] LABS: Basophils Percent Auto 0.8 % (0-2); Eosinophils Percent Auto 4.2 % (2-4); Hematocrit 28.5 % (36-46); Hemoglobin 9.2 g/dL (12.0-16.0); Mean Corpuscular HGB Conc 32.4 % (30-36); Mean Corpuscular Hemoglobin 21.1 PG (26-34); Mean Corpuscular Volume 65.3 fL (80-100); Monocytes Percent Auto 11.2 % (3-14); Neutrophils Absolute Auto 4200 /uL (3000-5900); Neutrophils Percent Auto 64.8 % (50-75); Platelet Count 199 X10^3/uL (150-400); Red Blood Cell Count 4.36 X10^6/uL (4.0-5.2); Red Cell Distribution Width 16.5 % (11.6-14.8); White Blood Cell Count 6.4 X10^3/uL (4.5-11.0)
[2018-07-23 06:16] LABS: Troponin I < 0.012 ng/mL (0.01-0.034)
[2018-07-23 06:21] LABS: Add Manual Diff / Slide Review SLIDE REVIEW
[2018-07-23 06:59] LABS: Anisocytosis 1+; Hypochromasia 2+; Poikilocytosis 1+
[2018-07-23] MEDS: GABAPENTIN 100 MG CAPSULE PO (08:35)
[2018-07-23] MEDS: hydroCHLOROthiazide 25 MG TABLET PO (09:40)
[2018-07-23] MEDS: SODIUM CHLORIDE 0.9% FLUSH 10 ML IV ×2 (09:40→20:12)
[2018-07-23] MEDS: LOSARTAN 50 MG TABLET 100 MG PO (09:40)
[2018-07-23] MEDS: SITAGLIPTIN 50 MG TABLET PO (09:40)
[2018-07-23] MEDS: ENOXAPARIN 40 MG/0.4 ML SYRINGE SUBCUT (09:40)
[2018-07-23] MEDS: AMLODIPINE 5 MG TABLET 10 MG PO (13:23)
[2018-07-23] MEDS: ROSUVASTATIN 10 MG TABLET 5 MG PO (13:25)
--- NOTE | 2018-07-23 15:41 | PM.DS.1 ---
History of Present Illness Chief complaint: elevated Blood Pressure Narrative: 82-year-old female presents with the elevated blood pressure and some chest pressure. She was seen by her primary care physician earlier today who noted a systolic pressure of over 200 sent to the ER here in the ER she was having some chest pressure and then developed some ST depression in her anterolateral leads on her EKG. No prior history of coronary disease. She was in the hospital just recently with pyelonephritis discharged home on the with Levaquin. At that time they also decreased the metoprolol from 50 b.i.d. to 5025 b.i.d. because of bradycardia and increased her losartan up to 100 mg per day. Discharge Providers Date of admission: 07/22/18 20:08 Primary care physician: Shireen Riggs MD Consults: Cardiology-- Dr. Piedra Discharge provider: Ariadne Malik MD Discharge Date: 07/23/18 Summary Discharge Diagnosis: 1. Possible unstable angina 2. Hypertension 3. Chronic anemia 4. Hypothyroidism 5. Chronic kidney disease stage III 6. Code status do not resuscitate Hospital Course: Patient was ruled out for AR with negative troponins. Her EKG did have ST depression and T-wave inversion in lead I, aVL, V5 to 6. She also continued to have intermittent chest pain. She does have significant risk factors including her age, uncontrolled diabetes, hypertension, and hyperlipidemia. Nuclear medicine stress test was not able to be performed at [facility] due to in availability of the nuclear medicine tracer. I have talked to and Dr. Ivey regarding to this case. Patient is going to be transferred to [facility] under the care of Dr. Ivey with Cardiology consultation. The plan is to have stress test possibly tomorrow. Patient also was also noticed to have bradycardia with heart rate in the 50s. Metoprolol was held in the morning of July 23, 2018. Her blood pressure was initially over 200 upon arrival at the ER. She received as needed hydralazine IV. She also received IV metoprolol. She was started on amlodipine 10 mg once a day in addition to losartan 100 mg daily. Her blood pressure is currently around 130-150 systolic. Status at Discharge Cognitive/behavioral status at discharge: At baseline Functional status at discharge: uses cane/walker Overall status at discharge: patient is progressing back to baseline Time Spent with Patient Greater than 30 minutes Exam Vital Signs (past 8 hours): - 07/23/18 13:00 Temperature 97.8 F Pulse Rate 64 Respiratory Rate 16 Blood Pressure 151/80 H Pulse Oximetry 97 Oxygen Delivery Method Room Air Oxygen Flow Rate 0 Narrative Exam Narrative: GENERAL: Pleasant appearing elderly woman in no acute distress. HEENT: Head normocephalic, atraumatic. Eyes pupils equal round NECK: Supple, no JVD, CHEST: Breath sounds equal bilaterally, no wheezes rales or rhonchi. CARDIAC: Regular rate and rhythm without murmurs, rubs or gallops. ABDOMEN: Soft, nontender. Normoactive bowel sounds all 4 quadrants. No guarding or rebound. EXTREMITIES: Normal range of motion, no clubbing or edema. NEUROLOGICAL: Alert and oriented; Normal muscle strength. SKIN: Warm, dry, no petechiae, no rashes or lesions. Objective Imaging Chest x-ray: Radiologist's impression: No acute disease. head CT: Radiologist's impression: No acute intracranial process. Labs Result Diagrams: 07/23/18 05:05 07/22/18 18:00 Labs: Laboratory Results - last 24 hr 07/22/18 07/22/18 07/22/18 18:00 18:00 18:00 WBC 6.4 RBC 4.49 Hgb 9.5 L Hct 29.6 L MCV 65.8 L MCH 21.0 L MCHC 32.0 RDW 15.9 H Plt Count 220 Neut % (Auto) 63.0 Lymph % (Auto) 20.7 L [place] % (Auto) 11.3 Eos % (Auto) 4.4 H Baso % (Auto) 0.6 Neut # (Auto) 4000 RBC Morphology See below Hypochromasia 1+ H Poikilocytosis Anisocytosis Microcytosis 2+ H PT 11.7 INR 1.1 Sodium 138 Potassium 3.3 L Chloride 98 Carbon Dioxide 27 BUN 26 H Creatinine 1.10 H Estimated GFR 47.6 L BUN/Creatinine Ratio 23.6 H Glucose 96 Calcium 9.8 Iron TIBC % Saturation Transferrin Total Bilirubin 0.4 AST 30 ALT 24 Alkaline Phosphatase 61 Total Creatine Kinase 64 CK-MB (CK-2) TNP CK-MB (CK-2) Rel Index TNP Troponin I < 0.012 Total Protein 8.3 H Albumin 4.5 Globulin 3.8 Albumin/Globulin Ratio 1.2 TSH 07/22/18 07/22/18 07/23/18 18:00 18:00 05:05 WBC 6.4 RBC 4.36 Hgb 9.2 L Hct 28.5 L MCV 65.3 L MCH 21.1 L MCHC 32.4 RDW 16.5 H Plt Count 199 Neut % (Auto) 64.8 Lymph % (Auto) 19.0 L [place] % (Auto) 11.2 Eos % (Auto) 4.2 H Baso % (Auto) 0.8 Neut # (Auto) 4200 RBC Morphology See below Hypochromasia 2+ H Poikilocytosis 1+ H Anisocytosis 1+ H Microcytosis PT INR Sodium Potassium Chloride Carbon Dioxide BUN Creatinine Estimated GFR BUN/Creatinine Ratio Glucose Calcium Iron 95 TIBC 379 % Saturation 25 Transferrin 316 Total Bilirubin AST ALT Alkaline Phosphatase Total Creatine Kinase CK-MB (CK-2) CK-MB (CK-2) Rel Index Troponin I Total Protein Albumin Globulin Albumin/Globulin Ratio TSH 1.12 07/23/18 05:05 WBC RBC Hgb Hct MCV MCH MCHC RDW Plt Count Neut % (Auto) Lymph % (Auto) [place] % (Auto) Eos % (Auto) Baso % (Auto) Neut # (Auto) RBC Morphology Hypochromasia Poikilocytosis Anisocytosis Microcytosis PT INR Sodium Potassium Chloride Carbon Dioxide BUN Creatinine Estimated GFR BUN/Creatinine Ratio Glucose Calcium Iron TIBC % Saturation Transferrin Total Bilirubin AST ALT Alkaline Phosphatase Total Creatine Kinase CK-MB (CK-2) CK-MB (CK-2) Rel Index Troponin I < 0.012 Total Protein Albumin Globulin Albumin/Globulin Ratio TSH Discharge Plan Discharge Plan Discharge Problem: Hypertension, Chest pain Patient Disposition: [facility] Transfer to: [facility] Under care of provider: Dr. Ivey and Dr. Piedra Discharge Med Rec/Prescriptions Prescriptions: New nitroglycerin 0.4 mg tablet, sublingual 0.4 mg SL Q5-15M PRN (Reason: chest pain) Qty: 20 RF: 0 aspirin 325 mg tablet 325 mg PO DAILY Qty: 30 RF: 0 Continue sitagliptin [Januvia] 50 MG tablet 50 mg PO Q DAY Qty: 0 RF: 0 levothyroxine [Synthroid] 75 MCG tablet 75 mcg PO MOTUWETHFRSA Qty: 0 RF: 0 ranitidine HCl [Zantac] 150 MG tablet 150 mg PO BID Qty: 0 RF: 0 montelukast [Singulair] 4 MG tablet,chewable 4 mg PO DAILY Qty: 0 RF: 0 multivitamin [Multiple Vitamins] 1 EACH tablet 1 tab PO DAILY Qty: 0 RF: 0 rosuvastatin [Crestor] 5 mg Tablet 5 mg PO DAILY RF: 0 hydrochlorothiazide 25 mg tablet 25 mg PO DAILY RF: 0 losartan 50 mg tablet 50 mg PO DAILY RF: 0 cetirizine [Zyrtec] 10 mg Tablet 10 mg PO BEDTIME RF: 0 gabapentin 100 mg capsule 100 mg PO DAILY RF: 0 Discontinued aspirin [Aspirin Childrens] 81 mg Tablet,Chewable 81 mg PO QPM RF: 0 metoprolol tartrate 25 mg tablet 25 mg PO BID Qty: 60 RF: 0 linaclotide [Linzess] 290 mcg Capsule 290 mcg PO DAILY RF: 0 No Action lancets-blood glucose strips RF: 0 Discharge Data Primary Care Provider: Shireen Riggs Attending Provider: Kar Rodas Admliliane Date/Time: 07/22/18 20:08
--- NOTE | 2018-07-23 16:09 | CM.DANOTE ---
Discharge Planning/Care Management DCP: assessment: case received, EMR reviewed. Pt is an 82 year old female who admitted to care of hospitalist team late last night. READMIT: noted Payer: Medicare and for Life PCP: Dr. Riggs P: Dr. Malik is transferring pt to [facility] for higher level of cardiac care. DC summary is noted. CM Discharge Assessment Start: 07/23/18 16:08 Freq: Status: Active Protocol: Document 07/23/18 16:08 ITV (Rec: 07/23/18 16:09 ITV [id number]) Discharge Planning Assessment Advance Directives? No Advance Directives on File Yes History Provided By Medical Record Household Members children Comment n/a: pt transferring to [facility] Review Status In Process Next Review Type Continued Stay Review
--- NOTE | 2018-07-23 19:31 | PC.NURSE ---
Addendum entered by Dasha Holloway R.N. 07/23/18 21:10: pt states come chest pressure when returning to bed after ambulating to the bathroom. HR at 57. scheduled nitro patch applied. pt educated to call staff if dizziness/headache occurs. [facility] at bedside to transport pt to [facility]. pt off unit at approximately 0. Original Note: TRANSFER Received pt with orders to transfer to [facility]; pt and pt's aware as MD was just at bedside to discuss with them. A&Ox3, pt reports some discomfort to L upper chest area but nothing that require medication/intervention. modified independent with ADLs, requires SBA. Report given to LOAN Fay at [facility] at approximately 1925. Awaiting transport via ambulance.
[2018-07-23] MEDS: ASPIRIN EC 81 MG TABLET PO (20:10)
[2018-07-23] MEDS: NITROGLYCERIN TOP (20:12)
== END 2018-07-23 21:10 | disposition short-term general hospital (02) | DRG 311 ==
LOC: ED 20:03 → AC 07-23 07:17
PROVIDERS: Admitting Provider Internal Medicine; Emergency Provider Emergency Medicine; PCP Internal Medicine; Visit Provider Internal Medicine
DX: I20.0 Unstable angina (principal); I12.9 Hypertensive chronic kidney disease with stage 1 through stage 4 chronic kidney disease, or unspecified chronic kidney disease; N18.3 Chronic kidney disease, stage 3 (moderate); K21.9 Gastro-esophageal reflux disease without esophagitis; E11.22 Type 2 diabetes mellitus with diabetic chronic kidney disease; Z79.84 Long term (current) use of oral hypoglycemic drugs; Z87.891 Personal history of nicotine dependence; D63.1 Anemia in chronic kidney disease; E03.9 Hypothyroidism, unspecified; Z66 Do not resuscitate
CPT/HCPCS: 36415; 36591; 70450; 71045; 80053; 81003; 82550; 82962; 83540; 83550; 84443; 84484; 85025; 85610; 93005; 96374; 99284; 99285; G0378; J0360; J1650

== ENCOUNTER 2018-08-17 22:42 | Emergency (ER) | payer MEDICARE, OTHER, SELFPAY ==
[2018-07-22 20:13] VITALS: BMI 25.6
[2018-08-17 23:02] VITALS: BP 135/88; PULSE 58; RESP 18; TEMP 36.6; O2SAT 100; BMI 24.1
--- NOTE | 2018-08-17 23:09 | DI.RAD.S_ITS ---
PROCEDURE: XR CHEST 1V INDICATIONS: dizzy, lightheaded, hypotension TECHNIQUE: One view of the chest was acquired. COMPARISON: [facility], CR, XR CHEST 1V, 07/22/2018, 18:51. FINDINGS: Surgical changes and devices: None. Lungs and pleura: No pleural effusions or pneumothorax. Lungs are clear. Mediastinum: Mediastinal contours appear normal. Heart size is enlarged. Bones and chest wall: No suspicious bony lesions. Overlying soft tissues appear unremarkable. IMPRESSION: Cardiomegaly. No acute cardiopulmonary pathology. Dictated by: Francisco Law M.D. on 08/18/2018 at 9:08 Approved by: Francisco Law M.D. on 08/18/2018 at 9:08
[2018-08-17] MEDS: SODIUM CHLORIDE 0.9% 1,000 ML 125 ML IV (23:30)
--- NOTE | 2018-08-17 23:41 | DI.CT.S_ITS ---
PROCEDURE: CT HEAD/BRAIN WO CON INDICATIONS: dizziness, unsteady gait since yesterday TECHNIQUE: Noncontrast 4.5 mm thick angled axial sections acquired from the foramen magnum to the vertex, with coronal and sagittal reformats. For radiation dose reduction, the following was used: automated exposure control, adjustment of mA and/or kV according to patient size. COMPARISON: [facility], CT, CT HEAD/BRAIN WO CON, 07/22/2018, 18:40. FINDINGS: Image quality: Excellent. CSF spaces: Basal cisterns are patent. No extra-axial fluid collections. The ventricles are symmetric in size and shape. Brain: No intracranial bleeds or masses. There is cerebral volume loss for age, with resultant ventricular and sulcal prominence. There are periventricular and deep white matter chronic small vessel ischemic changes. There is intracranial internal carotid artery atherosclerosis. Skull and face: Calvarium and visualized facial bones appear intact, without suspicious lesions. Sinuses: Visualized sinuses and mastoids are clear. IMPRESSION: No acute intracranial process. Dictated by: Malachi David M.D. on 08/18/2018 at 7:25 Approved by: Malachi David M.D. on 08/18/2018 at 7:27
[2018-08-17 23:48] LABS: Add Manual Diff / Slide Review NO; Basophils Percent Auto 0.6 % (0-2); Eosinophils Percent Auto 4.7 % (2-4); Hematocrit 29.3 % (36-46); Hemoglobin 9.2 g/dL (12.0-16.0); Lymphocytes Percent Auto 24.7 % (25-40); Mean Corpuscular HGB Conc 31.4 % (30-36); Mean Corpuscular Hemoglobin 20.8 PG (26-34); Mean Corpuscular Volume 66.3 fL (80-100); Monocytes Percent Auto 20.7 % (3-14); Neutrophils Absolute Auto 2400 /uL (3000-5900); Neutrophils Percent Auto 49.3 % (50-75); Platelet Count 163 X10^3/uL (150-400); Red Blood Cell Count 4.41 X10^6/uL (4.0-5.2); Red Cell Distribution Width 17.2 % (11.6-14.8); White Blood Cell Count 4.8 X10^3/uL (4.5-11.0)
[2018-08-17 23:54] LABS: BUN Creatinine Ratio 24.3 (6-22); Blood Urea Nitrogen 34 mg/dL (7-17); Calcium 9.5 mg/dL (8.4-10.2); Carbon Dioxide 27 mmol/L (22-32); Chloride 98 mmol/L (98-107); Glucose 99 mg/dL (80-110); HEMOLYSIS < 15 (0-50); Potassium 3.3 mmol/L (3.4-5.1); Sodium 137 mmol/L (137-145)
--- NOTE | 2018-08-18 00:01 | ED_ITS ---
HPI - Dizziness General Chief Complaint: Dizziness Stated Complaint: DIZZY LOW BLOOD PRESSURE Time Seen by Provider: 08/17/18 22:48 Source: patient and family Mode of arrival: ambulatory Limitations: no limitations History of Present Illness HPI Narrative: 82-year-old female, nonsmoker presents with multiple family members for evaluation of mild dizziness today and blood pressures at home in the 90s. She denies any fever or chills. She has no chest pain or shortness of breath. She denies nausea, vomiting or diarrhea. She denies any dysuria, frequency or urgency. She states that she is fine when sitting but is concerned that when she stands up she might become dizzy. Initial blood pressure in the department is 134 systolic. Patient had recent hospitalization for chest pain and subsequent transfer to [facility]. She had a normal stress test on July 24 MD complaint: dizziness and lightheadedness Onset (ago): hour(s) Timing: sudden onset Description: lightheadedness History of similar episodes: No History of trauma: No Severity: moderate Relieving factors: rest Exacerbating factors: exertion Associated symptoms: denies other symptoms Related Data Home Medications Medication Instructions Recorded Confirmed levothyroxine [Synthroid] 75 mcg PO MOTUWETHFRSA #0 04/25/16 07/22/18 montelukast [Singulair] 4 mg PO DAILY #0 04/25/16 07/22/18 multivitamin [Multiple Vitamins] 1 tab PO DAILY #0 04/25/16 07/22/18 ranitidine HCl [Zantac] 150 mg PO BID #0 04/25/16 07/22/18 sitagliptin [Januvia] 50 mg PO Q DAY #0 04/25/16 07/22/18 aspirin [Aspirin Childrens] 81 mg PO QPM 07/12/18 07/22/18 hydrochlorothiazide 25 mg PO DAILY 07/12/18 07/22/18 lancets-blood glucose strips 07/12/18 07/23/18 rosuvastatin [Crestor] 5 mg PO DAILY 07/12/18 07/22/18 cetirizine [Zyrtec] 10 mg PO BEDTIME 07/22/18 07/22/18 gabapentin 100 mg PO DAILY 07/22/18 07/22/18 linaclotide [Linzess] 290 mcg PO DAILY 07/22/18 07/22/18 losartan 50 mg PO DAILY 07/22/18 07/22/18 Previous Rx's Medication Instructions Recorded metoprolol tartrate 25 mg PO BID #60 tab 07/15/18 meclizine 12.5 mg PO TID PRN #10 tab 08/18/18 Allergies Allergy/AdvReac Type Severity Reaction Status Date / Time fluconazole [From Diflucan] Allergy Unknown Hives Verified 07/22/18 17:56 meperidine [From DEMEROL] Allergy Unknown Verified 07/22/18 17:49 Sulfa (Sulfonamide Allergy Unknown Verified 07/22/18 17:56 Antibiotics) tetracycline [TETRACYCLINE] Allergy Unknown Verified 07/22/18 17:49 Penicillins Allergy Verified 07/22/18 17:49 Review of Systems Review of Systems All systems reviewed & are unremarkable except as noted in HPI and below Constitutional Denies chills, Denies fever(s), Denies lethargy and Reports weakness Eyes Denies change in vision, Denies eye discharge, Denies irritation and Denies loss of vision ENT Ears, Nose, Mouth, and Throat: Denies change in voice, Denies neck pain and Denies sore throat Cardiovascular Denies chest pain, Denies irregular heart rhythm, Denies lightheadedness, Denies palpitations, Denies dyspnea, Denies dyspnea on exertion and Denies orthopnea Respiratory Denies cough, Denies dyspnea, Denies dyspnea on exertion and Denies wheezing Gastrointestinal Gastrointestinal: Denies abdominal pain, Denies change in bowel habits, Denies diarrhea, Denies nausea and Denies vomiting Genitourinary Denies hematuria, Denies flank pain, Denies urinary incontinence and Denies urinary urgency Musculoskeletal Denies neck pain Integumentary/Breasts Denies pruritus, Denies erythema, Denies rash and Denies wounds Neurologic Denies confusion, Denies loss of vision and Reports weakness Psychiatric Denies anxiety, Denies confusion, Denies depression, Denies homicidal ideation and Denies suicidal ideation Endocrine Denies palpitations Hematologic/Lymphatic Denies easy bruising Allergic/Immunologic Denies wheezing PFSH Medical History Diabetes (Chronic) Dyslipidemia (Chronic) GERD (gastroesophageal reflux disease) (Chronic) Hypertension (Chronic) Hypothyroid (Chronic) Thalassemia (Chronic) Pyelonephritis (Resolved) Family History Brother Diabetes mellitus Heart disease Father Prostate cancer Hypertension Mother Cervical cancer Social History household members: children Smoking Status: Former smoker alcohol intake: former Exam Narrative Exam Narrative: GENERAL: This is a well-nourished, well-developed patient, in mild distress. HEAD: Atraumatic. Normocephalic. No temporal or scalp tenderness. EYES: Pupils equal round and reactive. Extraocular motions intact. No scleral icterus. No injection or drainage. ENT: Nose without bleeding, purulent drainage or septal hematoma. Throat without erythema, tonsillar hypertrophy or exudate. Uvula midline. Airway patent. NECK: Trachea midline. No JVD or lymphadenopathy. Supple, nontender, no meningeal signs. CARDIOVASCULAR: Regular rate and rhythm without murmurs, gallops, or rubs. RESPIRATORY: Clear to auscultation. Breath sounds equal bilaterally. No wheezes , rales, or rhonchi. GASTROINTESTINAL: Abdomen soft, non-tender, nondistended. No hepato-splenomegaly , or palpable masses. No guarding. EXTREMITIES: No clubbing, cyanosis, or edema. No joint tenderness, effusion, or edema noted. BACK: Nontender without deformity or crepitance. No flank tenderness. NEURO: AOx3. SKIN: No rash or erythema. Initial Vital Signs Initial Vital Signs: Vital Signs Temperature 97.9 F 08/17/18 23:02 Pulse Rate 58 L 08/17/18 23:02 Respiratory Rate 18 08/17/18 23:02 Blood Pressure 135/88 08/17/18 23:02 Pulse Oximetry 100 08/17/18 23:02 Course Orders Ordered: ED Orders 08/17/18 23:09 XR chest 1V Stat 08/17/18 23:30 Basic Metabolic Panel Stat Complete Blood Count AUTO DIFF Stat Lactate (Lactic Acid) Stat Troponin I Stat 08/17/18 23:41 CT head/brain wo con Stat Sodium Chloride (Normal Saline 0.9%) 1,000 mls @ 125 mls/hr IV CONT MAREK Last Admin: 08/17/18 23:30 Dose: 125 mls/hr Discontinued Medications Meclizine HCl (Antivert) 25 mg PO NOW ONE Stop: 08/18/18 00:36 Last Admin: 08/18/18 00:47 Dose: 25 mg Reevaluation(s) Reevaluation #1: Patient able to ambulate to the bathroom without much in the way of difficulty. Orthostatics performed and she does have a subtle drop in her systolic. Vital Signs - 8 hr 08/17/18 23:02 08/18/18 00:12 08/18/18 00:31 Temperature 97.9 F Pulse Rate 58 L 58 L Pulse Rate [Orthostatic Lying] 55 L Pulse Rate [Orthostatic Sitting] 57 L Pulse Rate [Orthostatic Standing] 58 L Respiratory Rate 18 16 Blood Pressure 135/88 Blood Pressure [Left Arm] 167/78 H Blood Pressure [Orthostatic Lying] 140/80 Blood Pressure [Orthostatic Sitting] 166/80 H Blood Pressure [Orthostatic Standing] 158/63 H Pulse Oximetry 100 100 MDM - Dizziness Medical Records Attestation: I reviewed the patient's medical records. Lab Data Result diagrams: 08/17/18 23:30 08/17/18 23:30 Lab Results 08/17/18 08/17/18 08/17/18 Range/Units 23:30 23:30 23:30 WBC 4.8 (4.5-11.0) X10^3/uL RBC 4.41 (4.0-5.2) X10^6/uL Hgb 9.2 L (12.0-16.0) g/dL Hct 29.3 L (36-46) % MCV 66.3 L (80-100) fL MCH 20.8 L (26-34) PG MCHC 31.4 (30-36) % RDW 17.2 H (11.6-14.8) % Plt Count 163 (150-400) X10^3/uL Neut % (Auto) 49.3 L (50-75) % Lymph % (Auto) 24.7 L (25-40) % [place] % (Auto) 20.7 H (3-14) % Eos % (Auto) 4.7 H (2-4) % Baso % (Auto) 0.6 (0-2) % Neut # (Auto) 2400 L (2517-9452) /uL RBC Morphology See below Hypochromasia 1+ H Poikilocytosis 1+ H Anisocytosis 2+ H Microcytosis 2+ H Sodium 137 (137-145) mmol/L Potassium 3.3 L (3.4-5.1) mmol/L Chloride 98 (98-107) mmol/L Carbon Dioxide 27 (22-32) mmol/L BUN 34 H (7-17) mg/dL Creatinine 1.40 H (0.52-1.04) mg/dL Estimated GFR 36.0 L (>60) mL/min BUN/Creatinine Ratio 24.3 H (6-22) Glucose 99 (80-110) mg/dL Lactate 1.0 (0.7-2.1) mmol/L Calcium 9.5 (8.4-10.2) mg/dL Troponin I < 0.012 (0.01-0.034) ng/mL Urine Dip Bedside Urine Glucose Negative Bedside Urine Bilirubin - Negative Bedside Urine Ketone - Negative Urine Specific [place] 1.015 Bedside Urine Occult Blood - Negative Bedside Urine pH 7.0 Bedside Urine Protein - Negative Bedside Urine Urobilinogen - Negative Bedside Urine Nitrite - Negative Bedside Urine Leukocytes - Negative Esterase Imaging Data CT scan - head: Radiologist's impression: No acute process, no intracranial hemorrhage or stroke ECG Data Attestation: I personally reviewed and interpreted this ECG as follows: Prior ECG tracings: not available for review Discharge Plan Departure Patient Disposition: Home Clinical Impression: Orthostatic dizziness Instructions: DI for Dizziness-Nonvertigo Activity Restrictions/Additional Instructions: *You have been diagnosed with [ episode of hypotension, dizziness ] *What to do: *Continue to take medications as directed *Follow up with your primary care provider in 2-3 days, call for an appointment. Let them know you were seen in the Emergency Department and that we ask that you be seen in follow up *Return to ER if you should have any new, worsening or concerning symptoms Prescriptions: New meclizine 12.5 mg tablet 12.5 mg PO TID PRN (Reason: dizziness) Qty: 10 RF: 0 No Action sitagliptin [Januvia] 50 MG tablet 50 mg PO Q DAY Qty: 0 RF: 0 levothyroxine [Synthroid] 75 MCG tablet 75 mcg PO MOTUWETHFRSA Qty: 0 RF: 0 ranitidine HCl [Zantac] 150 MG tablet 150 mg PO BID Qty: 0 RF: 0 montelukast [Singulair] 4 MG tablet,chewable 4 mg PO DAILY Qty: 0 RF: 0 multivitamin [Multiple Vitamins] 1 EACH tablet 1 tab PO DAILY Qty: 0 RF: 0 aspirin [Aspirin Childrens] 81 mg Tablet,Chewable 81 mg PO QPM RF: 0 rosuvastatin [Crestor] 5 mg Tablet 5 mg PO DAILY RF: 0 lancets-blood glucose strips RF: 0 hydrochlorothiazide 25 mg tablet 25 mg PO DAILY RF: 0 metoprolol tartrate 25 mg tablet 25 mg PO BID Qty: 60 RF: 0 losartan 50 mg tablet 50 mg PO DAILY RF: 0 cetirizine [Zyrtec] 10 mg Tablet 10 mg PO BEDTIME RF: 0 gabapentin 100 mg capsule 100 mg PO DAILY RF: 0 linaclotide [Linzess] 290 mcg Capsule 290 mcg PO DAILY RF: 0 Referrals: Shireen Riggs MD [Primary Care Provider] -
[2018-08-18 00:06] LABS: Troponin I < 0.012 ng/mL (0.01-0.034)
[2018-08-18 00:07] LABS: Hypochromasia 1+
[2018-08-18 00:08] LABS: Anisocytosis 2+; Microcytosis 2+; Poikilocytosis 1+
[2018-08-18 00:12] VITALS: BP 167/78; PULSE 58; RESP 16; O2SAT 100
[2018-08-18 00:31] VITALS: BP 140/80; BP 158/63; BP 166/80; PULSE 55; PULSE 57; PULSE 58
--- NOTE | 2018-08-18 00:32 | PC.NURSE ---
Pt complained of dizziness when moved from laying to sitting, no change from sitting to standing.
[2018-08-18] MEDS: MECLIZINE HCL 12.5 MG TABLET 25 MG PO (00:47)
== END 2018-08-18 01:25 | disposition home or self-care (01) ==
PROVIDERS: Emergency Provider Emergency Medicine; PCP Internal Medicine
DX: R42 Dizziness and giddiness (principal)
CPT/HCPCS: 36591; 70450; 71045; 80048; 81003; 83605; 84484; 85025; 93005; 93010; 96360; 96361; 99283; 99285

== ENCOUNTER → 2019-02-22 10:47 | Outpatient (CLI) | payer MEDICARE, OTHER, SELFPAY ==
[2018-07-22 20:13] VITALS: BMI 25.6
--- NOTE | 2019-02-22 10:53 | DI.CT.S_ITS ---
PROCEDURE: CT SINUS SCREEN WO CON INDICATIONS: Atypical facial pain TECHNIQUE: Noncontrast 3.0 mm axial images acquired from the frontal sinuses to the mid-sella, with coronal and sagittal reformats. For radiation dose reduction, the following was used: automated exposure control, adjustment of mA and/or kV according to patient size. COMPARISON: [facility], CT, CT HEAD/BRAIN WO CON, 08/17/2018, 23:48. FINDINGS: Image quality: Excellent. Sinuses: There is trace right maxillary and frontal sinus mucosal thickening. Ostiomeatal Complexes: Ostiomeatal complexes are patent. Prominent anterior ethmoid air cells are present causing narrowing of the ostiomeatal complexes bilaterally particularly on the left. Miscellaneous: Visualized intra-orbital contents are normal. No kenneth bullosa or paradoxical turbinate curvature. No nasal septal deviation. IMPRESSION: 1. Narrowed although patent ostiomeatal complexes as above. 2. Minimal mucosal thickening. Dictated by: Pati Singh M.D. on 02/22/2019 at 14:01 Approved by: Pati Singh M.D. on 02/22/2019 at 14:03
== END ==
PROVIDERS: PCP Internal Medicine; Visit Provider Internal Medicine
DX: G50.1 Atypical facial pain (principal); J34.89 Other specified disorders of nose and nasal sinuses
CPT/HCPCS: 70486

== ENCOUNTER → 2021-01-17 09:09 | Outpatient (CLI) | payer MEDICARE, OTHER, SELFPAY ==
[2018-07-22 20:13] VITALS: BMI 25.6
--- NOTE | 2021-01-17 09:13 | DI.US.S_ITS ---
PROCEDURE: US CAROTID DOPPLER BI INDICATIONS: Occlusion and stenosis of bilateral carotid TECHNIQUE: Color and pulse Doppler interrogation was performed of both carotid systems, with image documentation and velocity measurements. COMPARISON: [facility], , US CAROTID DOPPLER BI, 02/05/2018, 13:01. FINDINGS: Stenosis calculations are based on SRU (Society of Radiologists in Ultrasound) criteria. Right side: Brachial blood pressure: 143/76 mm Hg. Common carotid artery peak systolic velocity: 67 cm/sec. Internal carotid artery peak systolic velocity: 55 cm/sec. Internal carotid artery end diastolic velocity: 20 cm/sec. External carotid artery peak systolic velocity: 72 cm/sec. ICA/CCA peak systolic ratio: 0.8 . Pike scale imaging description: Minimal plaque at the bifurcation Percent internal carotid artery stenosis: Less than 50% . Vertebral artery: Flow direction is antegrade. Left side: Brachial blood pressure: 139/72 mm Hg. Common carotid artery peak systolic velocity: 79 cm/sec. Internal carotid artery peak systolic velocity: 100 cm/sec. Internal carotid artery end diastolic velocity: 30 cm/sec. External carotid artery peak systolic velocity: 67 cm/sec. ICA/CCA peak systolic ratio: 1.3 . Pike scale imaging description: Mild plaque at the bifurcation. Percent internal carotid artery stenosis: Less than 50% . Vertebral artery: Flow direction is antegrade. IMPRESSION: Bilateral less than 50% ICA stenoses as above Dictated by: Malachi David M.D. on 01/17/2021 at 10:52 Approved by: Malachi David M.D. on 01/17/2021 at 10:54
== END ==
PROVIDERS: PCP Internal Medicine; Referring Provider Internal Medicine Cardiovascular Disease; Visit Provider Internal Medicine Cardiovascular Disease
DX: I65.23 Occlusion and stenosis of bilateral carotid arteries (principal)
CPT/HCPCS: 93880

== ENCOUNTER → 2021-10-11 12:13 | Outpatient (CLI) | payer MEDICARE, OTHER, SELFPAY ==
[2018-07-22 20:13] VITALS: BMI 25.6
--- NOTE | 2021-10-11 | DI.ECHO.S_ITS ---
[facility] +---------+ : : [address] : [address] : : : : [id number] : : : : Phone: [phone]---------+ Echocardiogram Report + + :Name: BILLY CLEMENTE Study Date: 10/11/2021 Height: 24.5 in: :[facility] ReadingLocation: Weight: 126 lb : : Gender: Female BSA: 0.80 m2 : :: 1935 Age: 86 yrs BP: 150/80 mmHg: :Reason For Study: Dizzines and giddiness : :Ordering Physician: : :SHANELLE Performed By: Az Stubbs : :Referring: FELIPE BURNS : + + Interpretation Summary The left ventricle is normal in size. The ejection fraction is estimated to be 60-65%. MV E/A: 0.86 Med Peak E' Austin: 5.3 cm/sec E/E' med: 15.6. In the previous study:MV E/A: 0.72 Med Peak E' Austin: 7.3 cm/sec E/E' med: 9.0 The right ventricle is normal in size and function. There is mild mitral regurgitation. Compared to the prior echo study, there has been an increase in the severity of mitral regurgitation. There is moderate tricuspid regurgitation. Compared to the prior echo exam, there has been an increase in TR severity. The right ventricular systolic pressure is estimated to be at least 35 mmHg based on an estimated right atrial pressure of 3 mm Hg. Compared to the prior echo exam, there has been an increase in the severity of pulmonary hypertension. Procedure: A two-dimensional transthoracic echocardiogram with color flow and Doppler was performed. The study quality was technically adequate. Comparison is made with the echocardiogram of 08/03/2018. The patient was in sinus bradycardia with heart rates between 51-59 bpm during the exam. Left Ventricle: There is borderline proximal septal thickening noted. The left ventricle is normal in size. There is no echo evidence for significant left ventricular outflow tract obstruction. There is no thrombus. The ejection fraction is estimated to be 60-65%. There are no focal wall motion abnormalities. MV E/A: 0.86 Med Peak E' Austin: 5.3 cm/sec E/E' med: 15.6. Right Ventricle: The right ventricle is normal in size and function. Atria: The left atrium is severely dilated. Both atria have significantly increased in size since the prior echo exam. The right atrium is moderate to severely dilated. There is no Doppler evidence for an interatrial shunt. Mitral Valve: The mitral valve leaflets appear mildly thickened, but open well. There is a flat closure plane of the the mitral valve leaflets. The mitral valve leaflets are mildly calcified. The mitral papillary muscle appears thickened and/or calcified. There is mild mitral regurgitation. Compared to the prior echo study, there has been an increase in the severity of mitral regurgitation. Aortic Valve: The aortic valve is trileaflet. The aortic valve opens well. The aortic valve is slightly calcified. There is no aortic valve stenosis. There is trace aortic regurgitation. Tricuspid Valve: The tricuspid valve leaflets are thickened and/or calcified, but open well. There is moderate tricuspid regurgitation. The right ventricular systolic pressure is estimated to be at least 35 mmHg based on an estimated right atrial pressure of 3 mm Hg. Compared to the prior echo exam, there has been an increase in TR severity. Compared to the prior echo exam, there has been an increase in the severity of pulmonary hypertension. Pulmonic Valve: The pulmonic valve leaflets are thin and pliable; valve motion is normal. There is trace pulmonic regurgitation. Great Vessels: The aortic root is normal size. The ascending aorta is normal in size. The aortic arch is normal in size. The IVC is of normal diameter and collapses greater than 50% with a sniff. This suggests a low right atrial pressure of 3 mm Hg. Pericardium/ Pleura There is no pericardial effusion. There is an anterior echo-free space consistent with a fat pad. There is no pleural effusion. MMode/2D Measurements & Calculations LVIDd: 3.4 cm LVOT diam: 1.7 cm LVIDs: 2.2 cm Ao root diam: 2.8 cm FS: 35.3 % asc Aorta Diam: 3.1 cm IVSd: 0.90 cm Ao Arch Diam (Prox Trans): 2.2 cm LVPWd: 0.90 cm LV joy. diameter/BSA (cm/m^2): 4.3 LV sys. diameter/BSA (cm/m^2): 2.8 LA A2 area: 16.4 cm2 RA long axis: 5.4 cm LA A4 area: 16.8 cm2 LA length (vol): 5.2 cm LA vol: 45.2 ml LA vol index: 56.6 ml/m2 LVLs ap4: 5.6 cm LVLd ap2: 6.3 cm LVLs ap2: 5.3 cm TAPSE_phl: 2.4 cm Doppler Measurements & Calculations Ao V2 max: 117.0 cm/sec LVOT Max Austin: 95.3 cm/sec Ao V2 mean: 83.9 cm/sec LV V1 max P.6 mmHg Ao max P.0 mmHg LV V1 VTI: 24.1 cm Ao mean P.0 mmHg CHELSI(I,D): 1.8 cm2 Ao V2 VTI: 30.6 cm CHELSI(V,D): 1.8 cm2 sev ratio: 0.79 CHELSI indexed to BSA (cm^2/m^2): 2.2 MV E max austin: 83.1 cm/sec TR max austin: 281.0 cm/sec MV A max austin: 96.4 cm/sec TR max P.6 mmHg MV E/A: 0.86 PA V2 max: 74.4 cm/sec Med Peak E' Austin: 5.3 cm/sec PA V2 mean: 52.9 cm/sec E/E' med: 15.6 PA mean P.0 mmHg Lat Peak E' Austin: 7.6 cm/sec PA pr(Accel): 33.1 mmHg E/E' lat: 10.9 E/e' average: 13.2 MV dec time: 0.17 sec SV(LVOT): 54.7 ml AV VR_phl: 0.81 CHELSI(VTI)/BSA_phl: 2.2 MV P1/2t-pr_phl: 48.0 msec Reading Physician:12:35 PM
== END ==
PROVIDERS: PCP Internal Medicine; Referring Provider Internal Medicine Cardiovascular Disease; Visit Provider Internal Medicine Cardiovascular Disease
DX: I07.1 Rheumatic tricuspid insufficiency (principal); R42 Dizziness and giddiness
CPT/HCPCS: 93306

== ENCOUNTER 2022-06-02 10:58 | Observation (INO) | payer MEDICARE, OTHER, SELFPAY ==
[2018-07-22 20:13] VITALS: BMI 25.6
[2022-06-02] VITALS (13 sets, daily range): BP systolic 124–173; BP diastolic 73–100; PULSE 58–69; RESP 14–24; TEMP 35.9–36.9; O2SAT 98–100; BMI 23.2; BMI 22.2
--- NOTE | 2022-06-02 11:13 | DI.RAD.S_ITS ---
PROCEDURE: XR CHEST 1V INDICATIONS: chest pain TECHNIQUE: One view of the chest was acquired. COMPARISON: [facility], CR, XR CHEST 1V, 08/17/2018, 23:15. FINDINGS: Surgical changes and devices: None. Lungs and pleura: Lungs are clear. No pleural effusions or pneumothorax. Mediastinum: Mediastinal contours appear normal. Heart size is enlarged. Atherosclerotic vascular calcification noted in the aortic arch. Bones and chest wall: No suspicious bony lesions. Overlying soft tissues appear unremarkable. IMPRESSION: Cardiomegaly without vascular congestion Approved by: Omega Carmona M.D. on 06/02/2022 at 12:23
--- NOTE | 2022-06-02 11:48 | ED_ITS ---
HPI - General Adult General Chief complaint: Dizziness Stated complaint: bp 78/50 lightheaded,stomach issue, disoriented Time Seen by Provider: 06/02/22 11:31 Source: patient and family Mode of arrival: Ambulatory History of Present Illness HPI narrative: Patient is an 86-year-old female. History of hypothyroid, hypoglycemia, tpw-xwjyvdv-rfehorpiz diabetes and hypertension who is here for evaluation of an episode that occurred this morning. She states that she did take her blood pressure medicine last evening and also took it this morning. She is sure that she did not take any extra doses of this because she uses a pill case that keeps her medicines separate. States she was getting dressed for jain this morning when she had a fairly sudden onset of some lightheadedness and nausea and not feeling very well and an disoriented. She does live with her and other family members. They came to check on her. They took her blood pressure. On 2 different occasions she had a systolic blood pressure in the 70s and diastolic in the 50s. At some point during this event she was also describing some chest discomfort and some upper back discomfort. It was difficult for her to specifically describe what this felt like to her. Unsure exactly how long the symptoms lasted but it was several minutes. She currently feels better but not completely resolved. Never had anything like this in the past. She did not fall during the events. She also took her blood sugar at home and it was in the 80s. She denies any history of stroke or coronary artery disease. Related Data Home Medications Medication Instructions Recorded Confirmed levothyroxine 75 mcg tablet 75 mcg PO MOTUWETHFRSA ##0 04/25/16 07/22/18 (Synthroid) montelukast 4 mg chewable tablet 4 mg PO DAILY ##0 04/25/16 07/22/18 (Singulair) multivitamin (Multiple Vitamins 1 tab PO DAILY ##0 04/25/16 07/22/18 tablet) ranitidine HCl 150 mg tablet 150 mg PO BID ##0 04/25/16 07/22/18 (Zantac) sitagliptin 50 mg tablet (Januvia) 50 mg PO Q DAY ##0 04/25/16 07/22/18 aspirin 81 mg chewable tablet 81 mg PO QPM 07/12/18 07/22/18 (Aspirin Childrens) hydrochlorothiazide 25 mg tablet 25 mg PO DAILY 07/12/18 07/22/18 lancets-blood glucose strips 07/12/18 07/23/18 rosuvastatin 5 mg tablet (Crestor) 5 mg PO DAILY 07/12/18 07/22/18 cetirizine 10 mg tablet (Zyrtec) 10 mg PO BEDTIME 07/22/18 07/22/18 gabapentin 100 mg capsule 100 mg PO DAILY 07/22/18 07/22/18 linaclotide 290 mcg capsule 290 mcg PO DAILY 07/22/18 07/22/18 (Linzess) losartan 50 mg tablet 50 mg PO DAILY 07/22/18 07/22/18 Previous Rx's Medication Instructions Recorded metoprolol tartrate 25 mg tablet 25 mg PO BID #60 tabs 07/15/18 meclizine 12.5 mg tablet 12.5 mg PO TID PRN dizziness #10 08/18/18 tabs Allergies Allergy/AdvReac Type Severity Reaction Status Date / Time fluconazole [From Diflucan] Allergy Unknown Hives Verified 07/22/18 17:56 meperidine [From DEMEROL] Allergy Unknown Verified 07/22/18 17:49 Sulfa (Sulfonamide Allergy Unknown Verified 07/22/18 17:56 Antibiotics) tetracycline [TETRACYCLINE] Allergy Unknown Verified 07/22/18 17:49 Penicillins Allergy Verified 07/22/18 17:49 Review of Systems Review of Systems ROS Unobtainable: All systems reviewed & are unremarkable except as noted in HPI and below Patient History Medical History Diabetes Dyslipidemia GERD (gastroesophageal reflux disease) Hypertension Hypothyroid Pyelonephritis Thalassemia Family History Brother Diabetes mellitus Heart disease Father Prostate cancer Hypertension Mother Cervical cancer Social History household members: children Smoking Status: Former smoker alcohol intake: former Smoking Status: Former smoker alcohol intake frequency: 0-2 drinks per day Substance Use Type: does not use Exam Initial Vital Signs Initial Vital Signs: Vital Signs Temperature 98.4 F 06/02/22 11:13 Pulse Rate 66 06/02/22 11:13 Respiratory Rate 18 06/02/22 11:13 Blood Pressure 150/100 H 09/18/22 11:13 Pulse Oximetry 100 06/02/22 11:13 Oxygen Delivery Method 06/02/22 11:13 Const General: cooperative, comfortable and No ill appearing HENMT Head: normal to inspection and normocephalic Chest Chest: normal inspection of the chest Resp Effort & Inspection: normal respiratory effort Auscultation: clear to auscultation bilaterally Cardio Rate: bradycardic Rhythm: abnormal rhythm regularly irregular GI Inspection: normal to inspection Skin General: no rashes or lesions noted Neuro General: patient alert, patient awake, patient oriented x3 and moves all extremities Cognition: normal cognition Speech: speech normal Motor: muscle tone normal throughout Extrem General: normal to inspection, capillary refill normal and No edema Psych Appearance: grossly normal Scores GCS Katerine coma scale eye opening: Spontaneous [place] coma scale verbal response: Orientated Katerine coma scale motor response: Obey commands [place] coma scale total score: 15 HEART Score Heart Score history: Slightly Suspicious Heart Score EKG: Non-Specific repolarization disturbance Heart Score Age: > or = 65 years old Heart Score risk factors: 1-2 risk factors Heart Score troponin: < or = to normal limit Heart Score Total: 4 Course Orders Ordered: ED Orders 06/02/22 11:13 XR chest 1V Stat EKG-12 Lead Stat 06/02/22 11:47 Complete Blood Count AUTO DIFF Stat Comprehensive Metabolic Panel Stat Lipase Stat Magnesium Stat Troponin & CK Cardiac Panel Stat Enoxaparin Sodium (Enoxaparin 40 Mg/0.4 Ml Syringe) 40 mg SUBCUT DAILY MAREK Discontinued Medications Aspirin (Aspirin 81 Mg Chew Tab) 324 mg PO NOW ONE Stop: 06/02/22 12:55 Last Admin: 06/02/22 13:33 Dose: 324 mg Documented By: KF Vital Signs Vital signs: Vital Signs - 8 hr 06/02/22 11:13 06/02/22 11:18 06/02/22 11:30 Temperature 98.4 F Pulse Rate 66 62 64 Respiratory Rate 18 20 20 Blood Pressure 150/100 H Pulse Oximetry 100 100 Oxygen Delivery Method Room Air 06/02/22 12:00 06/02/22 12:30 06/02/22 13:00 Temperature Pulse Rate 60 58 L 64 Respiratory Rate 24 15 16 Blood Pressure Pulse Oximetry 99 99 100 Oxygen Delivery Method Medical Decision Making Lab Data Lab results reviewed: Yes I reviewed the patient's lab results. Result diagrams: 06/02/22 11:47 06/02/22 11:47 Labs: Lab Results 06/02/22 06/02/22 Range/Units 11:47 11:47 WBC 3.3 L (4.5-11.0) X10^3/uL RBC 4.58 (4.0-5.2) X10^6/uL Hgb 9.7 L (12.0-16.0) g/dL Hct 30.1 L (36-46) % MCV 65.7 L (80-100) fL MCH 21.1 L (26-34) PG MCHC 32.1 (30-36) % RDW 16.1 H (11.6-14.8) % Plt Count 130 L (150-400) X10^3/uL Neut % (Auto) 52.1 (50-75) % Lymph % (Auto) 26.2 (25-40) % [place] % (Auto) 16.8 H (3-14) % Eos % (Auto) 4.3 H (2-4) % Baso % (Auto) 0.6 (0-2) % Neut # (Auto) 1700 (8714-1702) /uL Lymph # (Auto) 900 L (9264-3922) /uL [place] # (Auto) 600 (0-900) /uL Eos # (Auto) 100 (0-450) /uL Baso # (Auto) 0 (0-100) /uL RBC Morphology See below Hypochromasia 1+ H Poikilocytosis 1+ H Anisocytosis 2+ H Microcytosis 2+ H Sodium 140 (137-145) mmol/L Potassium 3.4 (3.4-5.1) mmol/L Chloride 103 (98-107) mmol/L Carbon Dioxide 27 (22-32) mmol/L BUN 35 H (7-17) mg/dL Creatinine 1.42 H (0.52-1.04) mg/dL Estimated GFR 36 L (>60) mL/min BUN/Creatinine Ratio 24.6 H (6-22) Glucose 125 H (80-110) mg/dL Calcium 9.2 (8.4-10.2) mg/dL Magnesium 2.0 (1.6-2.3) mg/dL Total Bilirubin 0.5 (0.2-1.3) mg/dL AST 42 H (14-36) IU/L ALT 33 (<35) IU/L Alkaline Phosphatase 112 (38-126) U/L Total Creatine Kinase 94 (30-135) U/L CK-MB (CK-2) TNP CK-MB (CK-2) Rel Index TNP Troponin I 0.015 (0.01-0.034) ng/mL Total Protein 7.2 (6.3-8.2) g/dL Albumin 4.1 (3.5-5.0) g/dL Globulin 3.1 (1.7-4.1) g/dL Albumin/Globulin Ratio 1.3 (1.0-2.8) Lipase 241 (23-300) U/L Point of Care Testing Glucose POC 100 Point of care testing: Point of Care Testing Glucose POC 100 Imaging Data Chest x-ray: Radiologist's Impression: [address] [address] XRay Report Signed Patient: So Stinson MR#: [id number] : 1935 Acct:[id number] Age/Sex: 86 / F Date of Service: 06/02/22 Loc: 90A-1 Accession Number: [id number] ?? Procedure: XR chest 1V Ordering Provider: Roc Euceda D.O. PROCEDURE:? XR CHEST 1V ? INDICATIONS:? chest pain ? TECHNIQUE:? One view of the chest was acquired.? ? COMPARISON:? Merged With [facility], , XR CHEST 1V, 08/17/2018, 23:15. ? FINDINGS:? ? Surgical changes and devices:? None.? ? Lungs and pleura:? Lungs are clear.? No pleural effusions or pneumothorax.? ? Mediastinum:? Mediastinal contours appear normal.? Heart size is enlarged.? Atherosclerotic vascular calcification noted in the aortic arch. ? Bones and chest wall:? No suspicious bony lesions.? Overlying soft tissues appear unremarkable.? ? IMPRESSION:? Cardiomegaly without vascular congestion ? ? ? Approved by: Omega Carmona M.D. on 06/02/2022 at 12:23? ECG Data Attestation: I personally reviewed and interpreted this ECG as follows: Interpretation: Sinus rhythm Ventricular rate is 65 Occasional PACs Left axis deviation LVH Nonspecific ST T wave changes MDM Narrative Medical decision making narrative: Patient not hypoglycemic. Is in bigeminy on the cafeteria monitor. Her blood pressure has improved without specific intervention here in the ER. I have low suspicion for CVA/TIAs the cause of her symptoms. It has been more suspicious that this was a cardiac event or an arrhythmia. Nonspecific changes on the EKG. Heart score 4. Chest x-ray is unremarkable. Patient is slightly anemic. Given her clinical presentation and her heart score patient does require admission the hospital for further risk stratification. I did discuss this with the patient and her family at bedside and they expressed understanding and agreement. Discussed the case with Dr. Collazo who will admit for further evaluation and treatment as well. Discharge Plan Departure Patient Disposition: Admitted as Observation Clinical Impression: Lightheadedness, Chest pain, Bigeminy Admit Date/Time: 06/02/22 13:03 Admit Provider: Keyshawn Leon
[2022-06-02 11:56] LABS: Basophils Absolute Auto 0 /uL (0-100); Basophils Percent Auto 0.6 % (0-2); Eosinophils Absolute Auto 100 /uL (0-450); Eosinophils Percent Auto 4.3 % (2-4); Hematocrit 30.1 % (36-46); Hemoglobin 9.7 g/dL (12.0-16.0); Lymphocytes Absolute Auto 900 /uL (1100-4500); Lymphocytes Percent Auto 26.2 % (25-40); Mean Corpuscular HGB Conc 32.1 % (30-36); Mean Corpuscular Hemoglobin 21.1 PG (26-34); Mean Corpuscular Volume 65.7 fL (80-100); Monocytes Absolute Auto 600 /uL (0-900); Monocytes Percent Auto 16.8 % (3-14); Neutrophils Absolute Auto 1700 /uL (1500-7000); Neutrophils Percent Auto 52.1 % (50-75); Platelet Count 130 X10^3/uL (150-400); Red Blood Cell Count 4.58 X10^6/uL (4.0-5.2); Red Cell Distribution Width 16.1 % (11.6-14.8); White Blood Cell Count 3.3 X10^3/uL (4.5-11.0)
[2022-06-02 11:59] LABS: Add Manual Diff / Slide Review SLIDE REVIEW
[2022-06-02 12:06] LABS: Alanine Aminotransferase 33 IU/L (<35); Albumin 4.1 g/dL (3.5-5.0); Albumin Globulin Ratio 1.3 (1.0-2.8); Alkaline Phosphatase 112 U/L (38-126); Aspartate Aminotransferase 42 IU/L (14-36); BUN Creatinine Ratio 24.6 (6-22); Bilirubin Total 0.5 mg/dL (0.2-1.3); Blood Urea Nitrogen 35 mg/dL (7-17); Calcium 9.2 mg/dL (8.4-10.2); Carbon Dioxide 27 mmol/L (22-32); Chloride 103 mmol/L (98-107); Creatine Kinase 94 U/L (30-135); Estimated Glomerular Filt Rate 36 mL/min (>60); Globulin 3.1 g/dL (1.7-4.1); Glucose 125 mg/dL (80-110); HEMOLYSIS < 15 (0-50); Lipase 241 U/L (23-300); Potassium 3.4 mmol/L (3.4-5.1); Sodium 140 mmol/L (137-145); Total Protein 7.2 g/dL (6.3-8.2)
[2022-06-02 12:16] LABS: Hypochromasia 1+; Microcytosis 2+
[2022-06-02 12:17] LABS: Anisocytosis 2+; Poikilocytosis 1+
[2022-06-02 12:18] LABS: Troponin I 0.015 ng/mL (0.01-0.034)
[2022-06-02] MEDS: ASPIRIN 81 MG CHEW TAB 324 MG PO (13:33)
--- NOTE | 2022-06-02 13:44 | DI.NM.S_ITS ---
PROCEDURE: NM BREEZY PERF SPECT R&S PHARM Rest and pharmacological stress myocardial perfusion SPECT with gated imaging and ejection fraction RADIOPHARMACEUTICAL: 11.2 mCi Tc-99m tetrafosmin IV at rest and 26.9 mCi Tc-99m tetrafosmin IV at peak effect of pharmacological stress. [id number] was performed. INDICATIONS: Chest pain with risk factors TECHNIQUE: Radiopharmaceutical was injected at peak stress test, and also at rest. SPECT images were obtained. SPECT myocardial perfusion images were displayed in short axis, horizontal long axis, and vertical long axis views. Gated images were reviewed using [employer] software. COMPARISON: None. CARDIAC STRESS: A pharmacologic stress test was performed under the supervision of an attending staff, using an infusion of lexiscan 0.4mg IV X1. Hemodynamic data: There is normal blood pressure and heart rate response to pharmacologic stress. Symptoms: The patient denied anginal chest pain. Aminophylline: none EKG: No diagnostic changes of ischemia; no ectopy. FINDINGS: Raw data: There is good myocardial uptake of radiotracer. No significant motion artifacts. Jxej-yz-uwtlb ratio is 0.32 (normal is less than 0.38 for tetrafosmin tracer). Left ventricle function: Gated images demonstrate normal left ventricular wall thickening. No segmental wall motion abnormalities. No transient ischemic dilation; TID is 0.97 (normal less than 1.3). Left ventricle resting end diastolic volume is 69mL. Left ventricle stress ejection fraction is 71%; normal range is above 45%. Myocardial perfusion: There is normal distribution of activity in the right and left ventricular myocardium. No fixed or reversible perfusion defects. IMPRESSION: Low risk, normal pharmaceutical nuclear stress test. No angina and no diagnostic ST changes with lexiscan. Dictated by: Moraima Nuñez MD on 06/04/2022 at 13:01 Approved by: Moraima Nuñez MD on 06/04/2022 at 13:03
--- NOTE | 2022-06-02 13:48 | PM.HP.1 ---
History of Present Illness History of Present Illness Date Patient Seen: 06/02/22 Time Patient Seen: 13:48 Chief complaint: bp 78/50 lightheaded,stomach issue, disoriented Narrative: This is an 86-year-old female with diabetes mellitus, hyperlipidemia, GERD, hypertension, hypothyroidism, arthritis, chronic kidney disease and thalassemia who presents with an approximately 1 hour episode of lightheadedness with a sensation of a band across the lower chest this morning while getting ready/dressed to go to scientology. Her home blood pressure checked at that point was in the 70/40 range, this was improved to the 120s systolic on arrival in the ED. She also checked her blood sugar at home and reports that it was in the 80s. Her troponin is 0.015. The EKG shows no acute ST or T-wave changes. She has no history of coronary artery disease. She denies any actual chest pain. There were no palpitations. There was no nausea and there was no shortness of breath. She goes to Cardiology, Dr. Alicea for blood pressure treatment, to nephrology for chronic kidney disease, to rheumatology and to several other specialists. She does not smoke, recalling that when she tried to smoke back in her 20s it would take her 1 more than year to smoke 1 pack of cigarettes. Patient History Medical History Diabetes Dyslipidemia GERD (gastroesophageal reflux disease) Hypertension Hypothyroid Pyelonephritis Thalassemia Family & Social History Family History Brother Diabetes mellitus Heart disease Father Prostate cancer Hypertension Mother Cervical cancer Social History: household members children Safety & Behavioral: Feels Safe in Current Yes Environment Tobacco & Substance use: Smoking Status Former smoker alcohol intake former alcohol intake frequency 0-2 drinks per day Substance Use Type does not use Meds Home Medications and Allergies Home Medications Medication Instructions Recorded Confirmed Type levothyroxine 75 mcg tablet 75 mcg PO MOTUWETHFRSA ##0 04/25/16 07/22/18 History (Synthroid) montelukast 4 mg chewable tablet 4 mg PO DAILY ##0 04/25/16 07/22/18 History (Singulair) multivitamin (Multiple Vitamins 1 tab PO DAILY ##0 04/25/16 07/22/18 History tablet) ranitidine HCl 150 mg tablet 150 mg PO BID ##0 04/25/16 07/22/18 History (Zantac) sitagliptin 50 mg tablet (Januvia) 50 mg PO Q DAY ##0 04/25/16 07/22/18 History aspirin 81 mg chewable tablet 81 mg PO QPM 07/12/18 07/22/18 History (Aspirin Childrens) hydrochlorothiazide 25 mg tablet 25 mg PO DAILY 07/12/18 07/22/18 History lancets-blood glucose strips 07/12/18 07/23/18 History rosuvastatin 5 mg tablet (Crestor) 5 mg PO DAILY 07/12/18 07/22/18 History metoprolol tartrate 25 mg tablet 25 mg PO BID #60 tabs 07/15/18 07/22/18 Rx cetirizine 10 mg tablet (Zyrtec) 10 mg PO BEDTIME 07/22/18 07/22/18 History gabapentin 100 mg capsule 100 mg PO DAILY 07/22/18 07/22/18 History linaclotide 290 mcg capsule 290 mcg PO DAILY 07/22/18 07/22/18 History (Linzess) losartan 50 mg tablet 50 mg PO DAILY 07/22/18 07/22/18 History meclizine 12.5 mg tablet 12.5 mg PO TID PRN dizziness #10 08/18/18 Rx tabs Allergies Allergy/AdvReac Type Severity Reaction Status Date / Time fluconazole [From Diflucan] Allergy Unknown Hives Verified 07/22/18 17:56 meperidine [From DEMEROL] Allergy Unknown Verified 07/22/18 17:49 Sulfa (Sulfonamide Allergy Unknown Verified 07/22/18 17:56 Antibiotics) tetracycline [TETRACYCLINE] Allergy Unknown Verified 07/22/18 17:49 Penicillins Allergy Verified 07/22/18 17:49 Review of Systems Review of Systems Narrative: Positive for lower chest/upper abdominal tightness Positive for lightheadedness and low blood pressure Negative for fevers, chills, sweats, coughing, chest pain, abdominal pain, nausea, vomiting, diarrhea, bleeding, rashes, seizures, headaches, sore throat, new allergies. Exam Vital Signs (past 8 hours): - 06/02/22 11:13 06/02/22 11:18 06/02/22 11:30 Temperature 98.4 F Pulse Rate 66 62 64 Respiratory Rate 18 20 20 Blood Pressure 150/100 H Pulse Oximetry 100 100 Oxygen Delivery Method Room Air 06/02/22 12:00 06/02/22 12:30 06/02/22 13:00 Temperature Pulse Rate 60 58 L 64 Respiratory Rate 24 15 16 Blood Pressure Pulse Oximetry 99 99 100 Oxygen Delivery Method 06/02/22 13:30 Temperature Pulse Rate 65 Respiratory Rate 16 Blood Pressure Pulse Oximetry 99 Oxygen Delivery Method Oxygen Delivery Method Room Air Narrative Exam Narrative: Alert and oriented x3. No apparent distress. She is conversational, socially appropriate and an excellent historian. Pupils are equally rounded reactive to light and accommodation Extraocular muscles are intact Sclerae are pink and nonicteric Throat looks normal No lymph nodes are felt head, neck, supraclavicular area There is no thyromegaly JVD is less than 6 cm No carotid bruits are heard Heart is regular rate and rhythm without murmur Lungs are clear to auscultation bilaterally Abdomen is soft, bowel sounds positive, nontender, no organomegaly extremities have no ankle edema Skin has no rash or jaundice Neurological exam: Cranial nerves 2-12 test intact There is no tremor Motor function is 4/5 throughout symmetric Gait and balance are not tested. Objective ECG Impression: Sinus rhythm with premature supraventricular complexes Left axis deviation Minimal voltage criteria for LVH, may be normal variant ( R in aVL ) PROBABLE ANTEROSEPTAL INFARCT, OLD Labs Result Diagrams: 06/02/22 11:47 06/02/22 11:47 Labs: Laboratory Results - last 24 hr 06/02/22 06/02/22 11:47 11:47 WBC 3.3 L RBC 4.58 Hgb 9.7 L Hct 30.1 L MCV 65.7 L MCH 21.1 L MCHC 32.1 RDW 16.1 H Plt Count 130 L Neut % (Auto) 52.1 Lymph % (Auto) 26.2 [place] % (Auto) 16.8 H Eos % (Auto) 4.3 H Baso % (Auto) 0.6 Neut # (Auto) 1700 Lymph # (Auto) 900 L [place] # (Auto) 600 Eos # (Auto) 100 Baso # (Auto) 0 RBC Morphology See below Hypochromasia 1+ H Poikilocytosis 1+ H Anisocytosis 2+ H Microcytosis 2+ H Sodium 140 Potassium 3.4 Chloride 103 Carbon Dioxide 27 BUN 35 H Creatinine 1.42 H Estimated GFR 36 L BUN/Creatinine Ratio 24.6 H Glucose 125 H Calcium 9.2 Magnesium 2.0 Total Bilirubin 0.5 AST 42 H ALT 33 Alkaline Phosphatase 112 Total Creatine Kinase 94 CK-MB (CK-2) TNP CK-MB (CK-2) Rel Index TNP Troponin I 0.015 Total Protein 7.2 Albumin 4.1 Globulin 3.1 Albumin/Globulin Ratio 1.3 Lipase 241 Assessment & Plan Assessment & Plan narrative: This is an 86-year-old female with diabetes mellitus, hyperlipidemia, GERD, hypertension, hypothyroidism, arthritis, chronic kidney disease and thalassemia who presents with an approximately 1 hour episode of lightheadedness with a sensation of a band across the lower chest this morning while getting ready/dressed to go to scientology. Her home blood pressure checked at that point was in the 70/40 range, this was improved to the 120s systolic on arrival in the ED. She also checked her blood sugar at home and reports that it was in the 80s. Her troponin is 0.015. The EKG shows no acute ST or T-wave changes. Chest Pain equivalent, present on admission. Active -EKG without acute ST or T-wave changes but with a Q-wave in lead V1 suggestive of an old anteroseptal [place]. -follow serial troponins, initial troponin is 0.015. -follow on telemetry -nuclear medicine cardiac stress test ordered for 06/03. Pancytopenia, present on admission. Active. -hemoglobin 9.7 with platelets 130 and white blood count of 3.3. -follow-up on 06/03 -likely related to her known thalassemia DM type 2, present on admission. Active -follow blood sugars and continue Januvia Hypertension, present on admission. Active -continue aspirin, hydrochlorothiazide, losartan and metoprolol. Chronic kidney disease, present on admission. Active. -creatinine 1.42 on admission, she follows up with Nephrology in [place]. -follow Hypothyroidism, present on admission. Chronic. -continue levothyroxine Hyperlipidemia, present on admission. Chronic. -Continue Crestor Lovenox for DVT prevention. Her , Ashwin Stinson, is her backup decision maker Time Spent With Patient Critical Care time: I spent a total of [] minutes of critical care time on this patient's care today; this time is exclusive of procedural time.
[2022-06-02 14:11] LABS: COVID19 -Nasal RAPID Negative (Negative)
[2022-06-02 14:28] LABS: Troponin I 0.013 ng/mL (0.01-0.034)
[2022-06-02 14:51] LABS: Appearance Urine UA CLEAR; Bilirubin Urine UA NEGATIVE (NEGATIVE); Color Urine UA YELLOW; Glucose Urine UA NEGATIVE (Negative); Ketones Urine UA NEGATIVE (NEGATIVE); Leukocyte Esterase Urine UA NEGATIVE (NEGATIVE); Nitrite Urine UA NEGATIVE (Negative); Occult Blood Urine UA NEGATIVE (Negative); Protein Urine UA NEGATIVE (Negative); Specific Gravity Urine UA <=1.005 (1.000-1.035); Urobilinogen Urine UA 0.2 E.U./dL (0.2)
[2022-06-02 15:15] LABS: Bacteria Urine Occasional (0-1); Culture Indicated Urine Cult Not Indicated; RBC Urine None Seen (0-5/HPF); Squamous Epithelial Cell Urine 0-1 /HPF (0-5/HPF); WBC Urine None Seen (0-5/HPF)
[2022-06-02] MEDS: ASPIRIN 81 MG CHEW TAB PO (16:52)
[2022-06-02 20:36] LABS: Troponin I < 0.012 ng/mL (0.01-0.034)
[2022-06-02] MEDS: ATORVASTATIN 20 MG TABLET 5 MG PO (21:27)
[2022-06-02] MEDS: GABAPENTIN 100 MG CAPSULE PO ×2 (21:50→21:51)
--- NOTE | 2022-06-02 21:53 | PC.NURSE ---
Addendum entered by Katarina Bryant R.N. 06/02/22 22:27: Chest pain relieved with Nitro 0.4mg SL X2 ten minutes apart. Patient tolerated well, denies chest pressure. BP 132/73 HR 60 after chest pressure resolved. Original Note: Patient compains of 4/10 left anterior chest pressure. Placed O2 2L NC on patient and notified Dr. Das. New orders for STAT EKG and PRN Nitro SL. Patient is AAOX4, sitting up in bed, calm. BP 173/95, O2 Sats 100% on 2L NC, HR 60.
[2022-06-02] MEDS: NITROGLYCERIN 0.4 MG SL TAB SL ×2 (22:01→22:13)
[2022-06-02] MEDS: ACETAMINOPHEN 325 MG TABLET 500 MG PO (23:34)
[2022-06-03] VITALS (7 sets, daily range): BP systolic 126–157; BP diastolic 73–81; PULSE 53–70; RESP 16–22; TEMP 36.1–37.1; O2SAT 98–100
[2022-06-03 02:15] LABS: Troponin I 0.015 ng/mL (0.01-0.034)
[2022-06-03 05:13] LABS: Add Manual Diff / Slide Review NO; Basophils Absolute Auto 0 /uL (0-100); Basophils Percent Auto 1.2 % (0-2); Eosinophils Absolute Auto 200 /uL (0-450); Eosinophils Percent Auto 4.7 % (2-4); Hematocrit 30.5 % (36-46); Hemoglobin 9.9 g/dL (12.0-16.0); Lymphocytes Absolute Auto 1400 /uL (1100-4500); Mean Corpuscular HGB Conc 32.4 % (30-36); Mean Corpuscular Hemoglobin 21.1 PG (26-34); Mean Corpuscular Volume 65.2 fL (80-100); Monocytes Absolute Auto 700 /uL (0-900); Monocytes Percent Auto 17.7 % (3-14); Neutrophils Absolute Auto 1600 /uL (1500-7000); Neutrophils Percent Auto 41.4 % (50-75); Platelet Count 122 X10^3/uL (150-400); Red Blood Cell Count 4.67 X10^6/uL (4.0-5.2); Red Cell Distribution Width 15.6 % (11.6-14.8); White Blood Cell Count 3.9 X10^3/uL (4.5-11.0)
[2022-06-03 05:14] LABS: BUN Creatinine Ratio 28.3 (6-22); Blood Urea Nitrogen 30 mg/dL (7-17); Calcium 9.3 mg/dL (8.4-10.2); Carbon Dioxide 29 mmol/L (22-32); Chloride 103 mmol/L (98-107); Estimated Glomerular Filt Rate 51 mL/min (>60); Glucose 88 mg/dL (80-110); HEMOLYSIS < 15 (0-50); Potassium 3.3 mmol/L (3.4-5.1); Sodium 139 mmol/L (137-145)
[2022-06-03 05:30] LABS: Anisocytosis 2+; Hypochromasia 1+; Microcytosis 2+; Poikilocytosis 1+
[2022-06-03] MEDS: LEVOTHYROXINE 75 MCG TABLET PO (06:44)
[2022-06-03] MEDS: ONDANSETRON 4 MG/2 ML INJ IV (09:56)
[2022-06-03] MEDS: AMLODIPINE 5 MG TABLET 10 MG PO (10:03)
[2022-06-03] MEDS: carvediloL 3.125 MG TABLET 6.25 MG PO (10:03)
[2022-06-03] MEDS: ENOXAPARIN 30 MG/0.3 ML SYRINGE SUBCUT (10:03)
[2022-06-03] MEDS: GABAPENTIN 100 MG CAPSULE PO ×3 (10:03→21:07)
[2022-06-03] MEDS: COLCHICINE 0.6 MG TABLET PO (10:05)
[2022-06-03] MEDS: hydroCHLOROthiazide 25 MG TABLET PO (10:05)
[2022-06-03] MEDS: POTASSIUM CHLORIDE 20 MEQ TAB 40 MEQ PO (10:18)
--- NOTE | 2022-06-03 10:36 | PC.NURSE ---
Patient reported nausea and small amount of vomiting with breakfast. RN checked on pt and pt reported feeling slightly nauseated and would like to take something to help. Provider ordered zofran IV. Pt tollerated well and was able to take AM meds. Pt in bed eating crackers and reported some improvement.
--- NOTE | 2022-06-03 10:40 | PT.IIE ---
Medical History (Last Reviewed 06/02/22 @ 13:54 by Roc Euceda DO) Diabetes Dyslipidemia GERD (gastroesophageal reflux disease) Hypertension Hypothyroid Pyelonephritis Thalassemia Physical Therapy Inpatient Evaluation/Re-Eval M1 PT/OT-IP Prior Functional Status Start: 06/03/22 09:22 Freq: NEEDED Status: Active Protocol: Document 06/03/22 10:40 AW (Rec: 06/03/22 10:59 AW [id number]) Medical Review Prior Functional Status Medical History Reviewed Yes Communication So is an effective verbal communicator. She uses B RAMON which are very helpful. Mobility and Gait Pt is independent with all mobilities. She does not use any assistive devices. She reports she has been having some RLE nerve pain that travels from posterior hip to her foot. She gets some cramping in her foot and mccauley. She is supposed to start outpatient PT on Friday of this week. Activities of Daily Living and IADL's Independent. Pt takes baths and is able to get in and out of the tub on her own though with some increasing difficulty due to RLE nerve pain. Pt drives. She manages her own medications and finances. Social History Household Members spouse,children Living Arrangements House Number of Floors (Floors) Two Floors Number of Stairs To Enter/Railing? 3 MISSY with wide B rails at front entrance. 3 MISSY with L rail acending at rear entrance which is most common entry for pt. 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 Her son and daughter in law live nearby and assist with some shopping and cooking . M2 PT-IP Current Condition Start: 06/03/22 09:22 Freq: NEEDED Status: Active Protocol: Document 06/03/22 10:40 AW (Rec: 06/03/22 10:59 AW [id number]) Physical Therapy Current Condition Current Condition Evaluation Date 06/03/22 Treatment Diagnosis chest pain, labile BP, hypokalemia Onset Date 06/02/22 M3 PT-IP Subjective Start: 06/03/22 09:22 Freq: NEEDED Status: Active Protocol: Document 06/03/22 10:40 AW (Rec: 06/03/22 10:59 AW [id number]) Subjective Physical Therapy Visit Type Type Initial Evaluation Visit Start Time 10:12 Visit Stop Time 10:40 Total Visit Minutes 28 Notes EKG was normal but suggested possible prior [place]. Pt is to have nuc med stress test tomorrow. Number of OUTSIDE PLANT CABLE ENGINEER Visits 0 Physical Therapy Visit Comments Patient Comments Pt is having some nausea but is willing to participate with PT. Patient Goals Reduce RLE pain, get back to regular activity. Therapy Pain Assessment Pain When Pain Assessed During Mobility Pain Present Pain Present Pain Reported Location R leg Scale Used pt does not quantify Description Radiating,Shooting,With Movement Pain Behaviors Wincing Pain Management Techniques Distraction M4 PT-IP Mobility and Gait Start: 06/03/22 09:22 Freq: NEEDED Status: Active Protocol: Document 06/03/22 10:40 AW (Rec: 06/03/22 11:10 AW [id number]) PT-Bed Mobility Assessment Supine to Sit Supine to Sit Independent Scooting Scooting to Edge of Bed Independent PT-Transfer Assessment Sit to and From Stand Sit to and from Stand Standby Assistance Equipment Transfer Assistive Device None,Gait Belt Orthotic/Prosthetic Devices or Brace: No Transfers Transfer Destination Chair Transfer Technique pt amb SBA Transfer Ability Level of Assist Standby Assistance Comments Mobility Comments Pt was lying in bed as PT arrived. BP 180/87 HR 70. Pt sat up EOB and transferred to chair set up 5 feet away SBA with steady gait. BP 151/90 HR 75. She stood again and walked in the halls, climbed stairs. On return to the room, she transferred back to the chair and agreed to sit up. She agreed to call for assist with mobility. Gait Assessment Gait Gait Assistance Required: Standby Assistance Distance (Feet) 175 Assistive Devices Assistive Device None,Gait Belt Orthotic/Prosthetic Devices or Brace: No Gait Deviations General Gait Pattern Antalgic,Decreased Stride Length,Decreased Feet Clearance Factors Limiting Gait Function Factors Limiting Gait Function Decreased Sensation,Decreased Strength,Pain Comments Gait Comments Pt walked with her own shoes donned. No overt LOB or gait deviations but pt did complain of RLE nerve pain affecting her mccauley, ankle, and foot. Stair Climbing Assessment Evaluation Level of Assist On Stairs Standby Assistance Devices Stair Climbing Assistive Devices Left Railing Technique/Endurance Stair Climbing Direction Ascend and Descend Stair Climbing Technique Step Over Step Number of Steps Climbed 10 Query Text: Stair Climbing Set # Repetitions (reps) 1 Comments Stair Climbing Comments Pt is cautious but safe on stairs with SBA. PT-Balance Assessment Sitting Balance and Reactions Static Sitting Balance Ability Normal Dynamic Sitting Balance Ability Normal Standing Balance and Reactions Static Standing Balance Ability Good Dynamic Standing Balance Ability Good Device Used no AD Balance Tests Single Limb Standing Pt donned her shoes in standing while touching wall Romberg mild sway with EC but WNL M5 PT-IP Objective Assessments Start: 06/03/22 09:22 Freq: NEEDED Status: Active Protocol: Document 06/03/22 10:40 AW (Rec: 06/03/22 11:10 AW [id number]) Orientation Orientation/Cognition Level of Alertness Alert Orientation Name Language Function Ability Hard of Hearing Safety Awareness Understands Safety Issues Gross Range of Motion Lower Extremity ROM Assessment Within Functional Limits Strength Lower Extremity Strength Assessment Right Impaired Hip 4/5 Knee 4/5 Comments Strength Comments LLE grossly 4+/5 Sensation Assessment Sensation Gross Sensation Right LE Impaired Light Touch Impaired Proprioception (Position) Impaired Sensation Description Tingling,Burning,Pain Muscle Tone Muscle Tone WNL Yes M6 PT-IP Treatment Start: 06/03/22 09:22 Freq: NEEDED Status: Active Protocol: Document 06/03/22 10:40 AW (Rec: 06/03/22 11:10 AW [id number]) Physical Therapy Treatment Education Education Provided Safety M7 PT-IP Assessment and Plan Start: 06/03/22 09:22 Freq: NEEDED Status: Active Protocol: Document 06/03/22 10:40 AW (Rec: 06/03/22 11:13 AW [id number]) PT Summary Assessment and Plan Potential Rehabilitation Potential Good Status of Condition at Evaluation Evolving Summary Impairments Pain,Strength,Balance,Gait Assessment Summary So is an 86 yo woman admitted with complaints of chest pain. Her EKG is normal but does suggest possible prior [place]. She will have a nuclear medicine stress test tomorrow. She is independent in all regards at baseline. On assessment today, she required no more than SBA for all mobilities including stairs management. Her BP was somewhat labile but no events were noted on telemonitoring during mobility. She is planning to start outpatient therapy later this week to address RLE nerve pain. Pt will be safe to discharge home with assist once medically stable. No acute PT needs are identified and pt will be discharged from therapy services. Frequency of Treatment Frequency Of Treatment Discharge Recommendations To Nursing Amount of Assist Needed Standby Assistance Discharge Recommendations PT Discharge Recommendations Home with Assistance, Outpatient PT Transportation Needs at Discharge Private Vehicle
--- NOTE | 2022-06-03 11:15 | CM.DANOTE ---
DCP Assessment: Payor: Medicare & [facility] PCP: Shireen Grossman MD Pt is a 86 y.o. F who presented to the ER for an evaluation of hypotension and nausea. Pt was admitted under observation for further management and work up of her symptoms. DCP met with pt this morning to discuss discharge needs. Pt sitting up in chair reading. DCP introduced self and role. Pt states she lives in [place] with her spouse, Ashwin, in a two story house. Pt states that she is fairly independent at baseline. Pt denies any DME use. Pt states that both her and her spouse drive POV. Pt states that she has a son and daughter who help with chores and meals. Pt did request more senior resources for light housekeeping. DCP provided that information to her. No discharge needs at this time. White board updated. Instructed to call. Pt thankful for discussion. P: Pt to have stress test tomorrow 06/04. Once medically stable, pt to discharge home via family POV. Laquita Das RN/ELIZABETH Discharge Planning/Care Management CM Discharge Assessment Start: 06/03/22 08:46 Freq: Status: Active Protocol: Document 06/03/22 11:14 ILIANA (Rec: 06/03/22 11:15 ILIANA [id number]) Discharge Planning Assessment Assigned [employer]able Laquita Das RN/ELIZABETH Advance Directives? No Advance Directives on File Yes History Provided By Patient,Medical Record Prior Living Arrangements House Household Members spouse,children Type of transporation used prior to Drives own vehicle admit Independent with ADL's Yes Is patient alert and oriented? Yes Caregiver for Another No Discharge Plan Home Referrals Initiated None needed Additional Comment At this time. Whiteboard Updated in Patient Room with Yes name and ext. # of [employer] Comment Instructed to call Review Status In Process Please Provide Date Initial DC 06/03/22 Assessment Was Performed Next Review Type Continued Stay Review
--- NOTE | 2022-06-03 12:21 | PM.PN.1 ---
Subjective Subjective Date Patient Seen: 06/03/22 Time Patient Seen: 08:00 Interval history: Today she denies any chest pain. She says she feels unsteady on her feet Exam Vital Signs (past 8 hours): - 06/03/22 08:00 06/03/22 10:03 Pulse Rate 59 L 59 L Respiratory Rate 16 Blood Pressure 134/81 134/81 Pulse Oximetry 99 Oxygen Delivery Method Room Air Oxygen Flow Rate 1 Narrative Exam Narrative: GEN: no acute distress CV: regular rate and rhythm, no murmurs PULM: clear bilaterally ABD: soft, nontender, nondistended, no organomegaly Objective Labs Result Diagrams: 06/03/22 04:54 06/03/22 04:54 Labs: Laboratory Results - last 24 hr 06/02/22 06/02/22 06/02/22 13:45 13:48 14:48 WBC RBC Hgb Hct MCV MCH MCHC RDW Plt Count Neut % (Auto) Lymph % (Auto) [place] % (Auto) Eos % (Auto) Baso % (Auto) Neut # (Auto) Lymph # (Auto) [place] # (Auto) Eos # (Auto) Baso # (Auto) RBC Morphology Hypochromasia Poikilocytosis Anisocytosis Microcytosis Sodium Potassium Chloride Carbon Dioxide BUN Creatinine Estimated GFR BUN/Creatinine Ratio Glucose Calcium Troponin I 0.013 Urine Color Yellow Urine Appearance Clear Urine pH 7.0 Ur Specific [place] <=1.005 Urine Protein Negative Urine Glucose (UA) Negative Urine Ketones Negative Urine Occult Blood Negative Urine Nitrate Negative Urine Bilirubin Negative Urine Urobilinogen 0.2 Ur Leukocyte Esterase Negative Urine RBC None seen Urine WBC None seen Ur Squamous Epith Cells 0-1 /hpf D Urine Bacteria Occasional (0-1) Ur Culture Indicated? Cult not indicated SARS-CoV-2 (PCR) Negative 06/02/22 06/03/22 06/03/22 20:00 01:44 04:54 WBC 3.9 L RBC 4.67 Hgb 9.9 L Hct 30.5 L MCV 65.2 L MCH 21.1 L MCHC 32.4 RDW 15.6 H Plt Count 122 L Neut % (Auto) 41.4 L Lymph % (Auto) 35.0 [place] % (Auto) 17.7 H Eos % (Auto) 4.7 H Baso % (Auto) 1.2 Neut # (Auto) 1600 Lymph # (Auto) 1400 [place] # (Auto) 700 Eos # (Auto) 200 Baso # (Auto) 0 RBC Morphology See below Hypochromasia 1+ H Poikilocytosis 1+ H Anisocytosis 2+ H Microcytosis 2+ H Sodium Potassium Chloride Carbon Dioxide BUN Creatinine Estimated GFR BUN/Creatinine Ratio Glucose Calcium Troponin I < 0.012 0.015 Urine Color Urine Appearance Urine pH Ur Specific [place] Urine Protein Urine Glucose (UA) Urine Ketones Urine Occult Blood Urine Nitrate Urine Bilirubin Urine Urobilinogen Ur Leukocyte Esterase Urine RBC Urine WBC Ur Squamous Epith Cells Urine Bacteria Ur Culture Indicated? SARS-CoV-2 (PCR) 06/03/22 04:54 WBC RBC Hgb Hct MCV MCH MCHC RDW Plt Count Neut % (Auto) Lymph % (Auto) [place] % (Auto) Eos % (Auto) Baso % (Auto) Neut # (Auto) Lymph # (Auto) [place] # (Auto) Eos # (Auto) Baso # (Auto) RBC Morphology Hypochromasia Poikilocytosis Anisocytosis Microcytosis Sodium 139 Potassium 3.3 L Chloride 103 Carbon Dioxide 29 BUN 30 H Creatinine 1.06 H Estimated GFR 51 L BUN/Creatinine Ratio 28.3 H Glucose 88 Calcium 9.3 Troponin I Urine Color Urine Appearance Urine pH Ur Specific [place] Urine Protein Urine Glucose (UA) Urine Ketones Urine Occult Blood Urine Nitrate Urine Bilirubin Urine Urobilinogen Ur Leukocyte Esterase Urine RBC Urine WBC Ur Squamous Epith Cells Urine Bacteria Ur Culture Indicated? SARS-CoV-2 (PCR) [facility] Medical History Diabetes Dyslipidemia GERD (gastroesophageal reflux disease) Hypertension Hypothyroid Pyelonephritis Thalassemia Family History Brother Diabetes mellitus Heart disease Father Prostate cancer Hypertension Mother Cervical cancer Social History household members: spouse and children Smoking Status: Former smoker alcohol intake: former Assessment & Plan Assessment & Plan narrative: Ms. Stinson is an 86W with PMH DM, HL, GERD, HTN, arthritis, CKD and thalassemia who who presented with chest pain. 1. Chest pain, acute -EKG without acute ST or T-wave changes but with a Q-wave in lead V1 suggestive of an old anteroseptal [place]. -follow serial troponins, initial troponin which was peak -follow on telemetry -nuclear medicine cardiac stress test ordered 2. Pancytopenia, present on admission. Active. -hemoglobin 9.7 with platelets 130 and white blood count of 3.3. -follow-up on 06/03 -likely related to her known thalassemia 3. DM type 2, present on admission. Active -follow blood sugars and continue Januvia 4. Hypertension, present on admission. Active -continue aspirin, hydrochlorothiazide, losartan and metoprolol. 5. Chronic kidney disease, present on admission. Active. -creatinine 1.42 on admission, she follows up with Nephrology in [place]. -follow 6. Hypothyroidism, present on admission. Chronic. -continue levothyroxine 7. Hyperlipidemia, present on admission. Chronic. -Continue Crestor Time Spent With Patient Critical Care time: I spent a total of [] minutes of critical care time on this patient's care today; this time is exclusive of procedural time.
[2022-06-03] MEDS: ACETAMINOPHEN 325 MG TABLET 500 MG PO ×2 (13:32→22:23)
[2022-06-03] MEDS: ASPIRIN 81 MG CHEW TAB PO (17:25)
[2022-06-03] MEDS: ATORVASTATIN 20 MG TABLET 5 MG PO (21:07)
[2022-06-04 00:56] VITALS: BP 142/82; PULSE 66; RESP 17; TEMP 36.6; O2SAT 95
[2022-06-04 05:00] VITALS: BP 143/78; PULSE 56; RESP 17; TEMP 36.7; O2SAT 100
[2022-06-04] MEDS: LEVOTHYROXINE 75 MCG TABLET PO (05:29)
[2022-06-04 05:45] LABS: Hematocrit 30.1 % (36-46); Hemoglobin 9.7 g/dL (12.0-16.0); Mean Corpuscular HGB Conc 32.2 % (30-36); Mean Corpuscular Hemoglobin 21.1 PG (26-34); Mean Corpuscular Volume 65.5 fL (80-100); Platelet Count 119 X10^3/uL (150-400); White Blood Cell Count 3.7 X10^3/uL (4.5-11.0)
[2022-06-04 05:49] LABS: BUN Creatinine Ratio 23.9 (6-22); Blood Urea Nitrogen 28 mg/dL (7-17); Calcium 9.3 mg/dL (8.4-10.2); Carbon Dioxide 30 mmol/L (22-32); Chloride 99 mmol/L (98-107); Estimated Glomerular Filt Rate 45 mL/min (>60); Glucose 85 mg/dL (80-110); HEMOLYSIS 19 (0-50); Potassium 3.7 mmol/L (3.4-5.1); Sodium 136 mmol/L (137-145)
[2022-06-04 08:30] VITALS: BP 133/85; PULSE 69; RESP 16; TEMP 36.3; O2SAT 100
[2022-06-04] MEDS: ACETAMINOPHEN 325 MG TABLET 650 MG PO (11:05)
[2022-06-04 12:00] VITALS: BP 173/76; PULSE 61; RESP 16; TEMP 36.6; O2SAT 100
[2022-06-04] MEDS: AMLODIPINE 5 MG TABLET 10 MG PO (13:05)
[2022-06-04 13:06] VITALS: BP 173/76
[2022-06-04] MEDS: carvediloL 3.125 MG TABLET 6.25 MG PO (13:06)
[2022-06-04] MEDS: COLCHICINE 0.6 MG TABLET PO (13:06)
[2022-06-04] MEDS: ENOXAPARIN 30 MG/0.3 ML SYRINGE SUBCUT (13:07)
[2022-06-04] MEDS: GABAPENTIN 100 MG CAPSULE PO (13:07)
[2022-06-04] MEDS: hydroCHLOROthiazide 25 MG TABLET PO (13:08)
--- NOTE | 2022-06-04 13:45 | PC.NURSE ---
Pt back from [facility] at approx. 1200. Pt stated she was having chest pain 5/10 to left side and between shoulder blades. Blood sugar checked - 75, VS taken, EKG stat ordered and completed. Dr. Bar notified. Stress test came back normal. Regular am meds given (they were held for NPO status until after the stress test. EKG unchanged. Pt states she is feeling better now. Gave juice and pudding to bring blood glucose back up. Pt is diet controlled. Pt now eating lunch with Spouse at the bedside. Dr. Bar in to see Patient and d/c orders were written. Pt agrees to call for assistance as needed.
--- NOTE | 2022-06-04 14:28 | PC.NURSE ---
Pt is dressed and ready for discharge home with Spouse. Spouse is at the bedside. IV and tele removed. Went over d/c instructions with Pt and Spouse-discussed d/c meds, time of last dose, reviewed stroke education, no new prescriptions, reminded Pt to follow a heart healthy diet which is ADA Compliant. Reminded Pt to drink plenty of fluids to prevent constipation or dehydration. Pt to follow up with her PCP as recommended. Pt out via w/c by EKG MANAGER to pov with Spouse and all belongings.
--- NOTE | 2022-06-04 17:11 | P.DS_ITS ---
History of Present Illness History of Present Illness Date Patient Seen: 06/02/22 Time Patient Seen: 13:48 Chief complaint: bp 78/50 lightheaded,stomach issue, disoriented Narrative: Per admitting provider: This is an 86-year-old female with diabetes mellitus, hyperlipidemia, GERD, hypertension, hypothyroidism, arthritis, chronic kidney disease and thalassemia who presents with an approximately 1 hour episode of lightheadedness with a sensation of a band across the lower chest this morning while getting ready/dressed to go to [employer]. Her home blood pressure checked at that point was in the 70/40 range, this was improved to the 120s systolic on arrival in the ED. She also checked her blood sugar at home and reports that it was in the 80s. Her troponin is 0.015. The EKG shows no acute ST or T-wave changes. She has no history of coronary artery disease. She denies any actual chest pain. There were no palpitations. There was no nausea and there was no shortness of breath. She goes to Cardiology, Dr. Alicea for blood pressure treatment, to nephrology for chronic kidney disease, to rheumatology and to several other specialists. She does not smoke, recalling that when she tried to smoke back in her 20s it would take her 1 more than year to smoke 1 pack of cigarettes. Discharge Providers Provider Date of admission: 06/02/22 13:03 Discharge Date: 06/04/22 Primary care physician: Shireen Riggs MD Consults: 06/03/22 08:18 Consult to Physical Therapy Evaluate & Treat Comment: Physician Instructions: Evaluate and Treat Discharge provider: Dax Bar MD Summary Hospital Course Discharge Diagnosis: 1. Chest pain 2. Thalassemia with pancytopenia 3. Type 2 DM 4. Hypertension 5. CKD stage 2 6. Hypothyroidism 7. Hyperlipidemia Hospital Course: Ms. Stinson was admitted with chest pain. This improved in the hospital. She had an EKG which showed no acute changes. She had negative troponins. Her stress test was reassuring. She had chest pain with movement likely secondary to musculoskeletal issues. She was discharged and recommended to follow up closely with her PCP. Exam Vital Signs (past 8 hours): - 06/04/22 12:00 06/04/22 13:06 Temperature 98 F Pulse Rate 61 Respiratory Rate 16 Blood Pressure 173/76 H 173/76 H Pulse Oximetry 100 Oxygen Flow Rate 0 Oxygen Delivery Method Room Air Oxygen Flow Rate 0 Narrative Exam Narrative: GEN: no acute distress CV: regular rate and rhythm, no murmurs PULM: clear bilaterally ABD: soft, nontender, nondistended, no organomegaly Objective Labs Result Diagrams: 06/04/22 05:09 06/04/22 05:09 Labs: Laboratory Results - last 24 hr 06/04/22 06/04/22 05:09 05:09 WBC 3.7 L RBC 4.60 Hgb 9.7 L Hct 30.1 L MCV 65.5 L MCH 21.1 L MCHC 32.2 RDW 16.0 H Plt Count 119 L Sodium 136 L Potassium 3.7 Chloride 99 Carbon Dioxide 30 BUN 28 H Creatinine 1.17 H Estimated GFR 45 L BUN/Creatinine Ratio 23.9 H Glucose 85 Calcium 9.3 PFSH Medical History Diabetes Dyslipidemia GERD (gastroesophageal reflux disease) Hypertension Hypothyroid Pyelonephritis Thalassemia Family History Brother Diabetes mellitus Heart disease Father Prostate cancer Hypertension Mother Cervical cancer Social History household members: spouse and children Smoking Status: Former smoker alcohol intake: former Discharge Plan Discharge Plan Patient Disposition: Home Provider Discharge Comment: Ms. Stinson came in to the hospital with chest pain. She had a stress test done which was reassuring that she had no heart issue. She was able to be discharged home. Discharge orders & Medications Prescriptions: New Linaclotide [Linzess] 290 mcg PO DAILY Qty: 30 0RF Continued levothyroxine [Synthroid] 75 MCG tablet 75 mcg PO MOTUWETHFR Qty: 0 multivitamin [Multiple Vitamins] 1 EACH tablet 1 tab PO DAILY Qty: 0 aspirin [Aspirin Childrens] 81 mg Tablet,Chewable 81 mg PO QPM rosuvastatin [Crestor] 5 mg Tablet 2.5 mg PO DAILY hydrochlorothiazide 25 mg tablet 12.5 mg PO DAILY amlodipine 10 mg tablet 10 mg PO DAILY carvedilol 6.25 mg tablet 6.25 mg PO DAILY clobetasol 0.05 % ointment 0.05 applic TOPICAL PRN PRN (Reason: itching) colchicine [Colcrys] 0.6 mg tablet 0.6 mg PO DAILY diclofenac sodium 1 % gel 1 g TOPICAL DAILY Voltaren Arthritis Pain cream 1 dose topical PRN PRN (Reason: Pain (Scale Score 1-3)) acetaminophen [Tylenol] 325 mg Tablet 500 mg PO Q6H PRN (Reason: Pain (Scale Score 1-3)) gabapentin 100 mg capsule 100 mg PO TID No Action (DME) lancets-blood glucose strips Follow up/Referrals: Shireen Riggs MD [Primary Care Provider] - Diet/Activity/Treatments Diet: Regular Visit Report/Discharge Packet Instructions: High Blood Pressure, DI for Chest Pain Discharge Data Primary Care Provider: Shireen Riggs Attending Provider: Keyshawn Leon
== END 2022-06-04 14:51 | disposition home or self-care (01) ==
LOC: ED 13:03 → AC 13:04
PROVIDERS: Internal Medicine; Admitting Provider Family Medicine; Emergency Provider Emergency Medicine; PCP Internal Medicine; Referring Provider Emergency Medicine; Visit Provider Family Medicine
DX: R42 Dizziness and giddiness (principal); Z20.822 Contact with and (suspected) exposure to COVID-19; E03.9 Hypothyroidism, unspecified; R07.9 Chest pain, unspecified; D61.818 Other pancytopenia; E78.5 Hyperlipidemia, unspecified; I12.9 Hypertensive chronic kidney disease with stage 1 through stage 4 chronic kidney disease, or unspecified chronic kidney disease; E11.22 Type 2 diabetes mellitus with diabetic chronic kidney disease; N18.2 Chronic kidney disease, stage 2 (mild); Z79.899 Other long term (current) drug therapy; D56.9 Thalassemia, unspecified
CPT/HCPCS: 36415; 71045; 78452; 80048; 80053; 81001; 82550; 82962; 83690; 83735; 84484; 85025; 85027; 87635; 93005; 93010; 93017; 96372; 96374; 97162; 99284; C9803; G0378; A9502; J1650; J2405; J2785

== ENCOUNTER → 2025-07-19 12:56 | Outpatient (CLI) | payer MEDICARE, OTHER, SELFPAY ==
[2022-06-02 14:07] VITALS: BMI 22.2
--- NOTE | 2025-07-19 12:58 | DI.US.S_ITS ---
PROCEDURE: US CAROTID DOPPLER BI INDICATIONS: Tricuspid regurgitation/carotid artery stenosis TECHNIQUE: Color and pulse Doppler interrogation was performed of both carotid systems, with image documentation and velocity measurements. COMPARISON: [facility], US, US CAROTID DOPPLER BI, 01/17/2021, 9:23. [facility], CT, CT HEAD WITHOUT CONTRAST, 06/11/2024, 15:52. FINDINGS: Stenosis calculations are based on SRU (Society of Radiologists in Ultrasound) criteria. The flow velocities and the arterial waveforms are normal within both carotid arterial systems. Atherosclerotic plaque is seen on both sides. The estimated degree of internal carotid artery stenosis is less than 50%. Antegrade flow is confirmed within both vertebral arteries. IMPRESSION: No hemodynamically significant stenosis is seen. Atherosclerotic plaque is noted bilaterally. Similar to the prior. Dictated by: Reza Sood M.D. on 07/20/2025 at 16:53 Approved by: Reza Sood M.D. on 07/20/2025 at 16:54
--- NOTE | 2025-07-19 12:58 | DI.ECHO.S_ITS ---
[facility] : : [address] : : [place] : : [id number] : : Phone: [phone] Echocardiogram Report + + :Name: BILLY CLEMENTE Study Date: 07/19/2025 Height: 62 in : :[facility] ReadingLocation: Weight: 99 lb : : Gender: Female BSA: 1.4 m2 : :: 1935 Age: 89 yrs BP: 125/78 mmHg: :Reason For Study: TRICUSPID REGURGITATION : :Ordering Physician: GRANT, : :FELIPE Performed By: Diaz Love : :Referring: FELIPE BURNS : + + Interpretation Summary The patient was in normal sinus rhythm during the exam. The patient had frequent PACs during the exam. The left ventricle is normal in size. The left ventricular ejection fraction is normal. Left ventricular ejection fraction is estimated to be 60 +/- 5%. No significant change in LVEF. The right ventricle is normal in size and function. There is moderate mitral regurgitation. Compared to the prior echo study, there has been an increase in the severity of mitral regurgitation. Mild MR. There is moderate tricuspid regurgitation. Compared to the prior echo exam, there has been no change in TR severity. The right ventricular systolic pressure is estimated to be at least 51 mmHg based on an estimated right atrial pressure of 3 mm Hg. Previously 43 mmHg. Mild atherosclerotic plaque(s) in the aortic arch. There is aortic root sclerosis/calcification. Procedure: A two-dimensional transthoracic echocardiogram with color flow and Doppler was performed. The study quality was technically good. Comparison is made with the echocardiogram of 01/02/23. The patient was in normal sinus rhythm during the exam. The patient had frequent PACs during the exam. Left Ventricle: The left ventricle is normal in size. There is normal left ventricular wall thickness. There is no ventricular septal defect visualized. The left ventricular ejection fraction is normal. Left ventricular ejection fraction is estimated to be 60 +/- 5%. There are no focal wall motion abnormalities. MV E/A: 1.4 Med Peak E' Austin: 8.0 cm/sec E/E' med: 10.8. Right Ventricle: The right ventricle is normal in size and function. Atria: The left atrium is severely dilated. The left atrium has significantly increased in size since the prior echo exam. Right atrial size is normal. There is no Doppler evidence for an interatrial shunt. Mitral Valve: There is mild mitral annular calcification. The mitral valve leaflets are mildly calcified. The mitral valve leaflets appear mildly thickened. There is moderate mitral regurgitation. Compared to the prior echo study, there has been an increase in the severity of mitral regurgitation. Aortic Valve: The aortic valve is trileaflet. The aortic valve opens well. There is no aortic valve stenosis. No aortic regurgitation is present. Tricuspid Valve: Tricuspid leaflets are thickened. There is moderate tricuspid regurgitation. Compared to the prior echo exam, there has been no change in TR severity. The right ventricular systolic pressure is estimated to be at least 51 mmHg based on an estimated right atrial pressure of 3 mm Hg. Pulmonic Valve: The pulmonic valve is not well seen, but is grossly normal. There is trace pulmonic regurgitation. Great Vessels: The aortic root is normal size. There is aortic root sclerosis/calcification. The dimensions of the ascending aorta are normal. Mild atherosclerotic plaque(s) in the aortic arch. The pulmonary artery is normal size. The IVC is of normal diameter and collapses greater than 50% with a sniff. This suggests a low right atrial pressure of 3 mm Hg. Pericardium/ Pleura There is no pericardial effusion. There is no pleural effusion. MMode/2D Measurements & Calculations LVIDd: 4.1 cm LVOT diam: 1.8 cm LVIDs: 2.9 cm Ao root diam: 2.6 cm FS: 28.3 % asc Aorta Diam: 3.1 cm EPSS: 0.51 cm IVSd: 1.00 cm LVPWd: 1.00 cm LV joy. diameter/BSA (cm/m^2): 2.9 LV sys. diameter/BSA (cm/m^2): 2.1 LA A2 area: 21.2 cm2 RA long axis: 4.9 cm LA A4 area: 28.3 cm2 RA area: 17.2 cm2 LA length (vol): 6.6 cm RA vol: 51.7 ml LA vol: 76.6 ml RA : 36.5 ml/m2 LA vol index: 54.0 ml/m2 IVC diam: 2.0 cm RVD1 (basal): 3.9 cm RVD2 (mid): 2.9 cm TAPSE: 2.9 cm Doppler Measurements & Calculations Ao V2 max: 138.8 cm/sec LVOT Max Austin: 94.9 cm/sec Ao V2 mean: 101.1 cm/sec LV V1 max P.6 mmHg Ao max P.7 mmHg LV V1 VTI: 23.5 cm Ao mean P.4 mmHg CHELSI(I,D): 1.8 cm2 Ao V2 VTI: 33.5 cm CHELSI(V,D): 1.7 cm2 sev ratio: 0.70 CHELSI indexed to BSA (cm^2/m^2): 1.2 MV E max austin: 86.7 cm/sec TR max austin: 345.5 cm/sec MV A max austin: 63.5 cm/sec TR max P.8 mmHg MV E/A: 1.4 PA V2 max: 84.4 cm/sec Med Peak E' Austin: 8.0 cm/sec PA V2 mean: 60.5 cm/sec E/E' med: 10.8 PA mean P.6 mmHg Lat Peak E' Austin: 9.9 cm/sec PA pr(Accel): 39.6 mmHg E/E' lat: 8.8 E/e' average: 9.8 MV dec time: 0.16 sec SV(LVOT): 59.3 ml Reading Physician:03:55 PM
== END ==
LOC: US 12:57
PROVIDERS: PCP Internal Medicine; Referring Provider Internal Medicine Cardiovascular Disease; Visit Provider Internal Medicine Cardiovascular Disease
DX: I65.23 Occlusion and stenosis of bilateral carotid arteries (principal); I08.1 Rheumatic disorders of both mitral and tricuspid valves; I70.0 Atherosclerosis of aorta
CPT/HCPCS: 93306; 93880